=== PATIENT | female | born 1940 | race Caucasian/White ===

== ENCOUNTER 2016-10-24 16:39 | Inpatient (IN) | payer MEDICARE, BC ==
[~2016-10-24] VITALS: Ht 170.2 cm; Wt 88.5 kg
[2016-10-24 20:25] LABS: BASO # 0.1 x10^3/uL (0.0-0.2); BASO % 0 % (0-3); EOS % 2 % (0-3); HEMATOCRIT 40.1 % (36.0-47.0); HEMOGLOBIN 13.6 g/dL (12.0-15.5); LYMPH # 1.4 x10^3/uL (1.0-4.8); LYMPH % 8 % (24-48); MEAN CORPUSCULAR HEMOGLOBIN 30 pg (25-35); MEAN CORPUSCULAR HGB CONC 34 g/dL (31-37); MEAN CORPUSCULAR VOLUME 88 fL (79-100); MONO % 5 % (0-9); NEUT % 84 % (31-73); PLATELET COUNT 246 x10^3/uL (140-400); RED BLOOD COUNT 4.56 x10^6/uL (3.50-5.40); RED CELL DISTRIBUTION WIDTH 14.5 % (11.5-14.5); WHITE BLOOD COUNT 17.8 x10^3/uL (4.0-11.0)
[2016-10-24] MEDS ORDERED: ONDANSETRON PF 4 MG/2 ML VIAL. IV ONE (20:30)
[2016-10-24] MEDS: MORPHINE SULFATE 4 MG/ML DISP.SYRIN. IV PRN (20:30)
[2016-10-24 20:40] LABS: CALCIUM 9.4 mg/dL (8.5-10.1); CREATININE 0.5 mg/dL (0.6-1.0); GFR 120.3
[2016-10-24 20:43] LABS: POTASSIUM 2.8 mmol/L (3.5-5.1)
--- NOTE | 2016-10-24 20:43 | PHYS DOC ---
Past Medical History Past Medical History: GERD, Hypertension, Hypothyroid, Other Additional Past Medical Histor: INTERSTITIAL PULMONARY FIBROSIS,SLEEP APNEA Past Surgical History: Coronary Bypass Surgery, Knee Replacement, Other Additional Past Surgical Histo: R MASTECTOMY,TOE,CATARACTS Alcohol Use: None Drug Use: None Adult General Chief Complaint Chief Complaint: CONSTIPATION HPI HPI We 6-year-old female with a history of pulmonary fibrosis now presents the emergency department complaining of severe constipation. Patient feels rectal pressure and has not moved a normal bowel movement in days. She has passed some liquid stool but she thinks she may have an impaction. Patient has a prior history of rectal prolapse is concerned that could be an issue as well. Discussed some mild abdominal bloating but no pain or tenderness. No fevers chills sweats or shaking chills. No other complaints Review of Systems Review of Systems Constitutional: Denies fever or chills [] Eyes: Denies change in visual acuity, redness, or eye pain [] HENT: Denies nasal congestion or sore throat [] Respiratory: Denies cough or shortness of breath [] Cardiovascular: No additional information not addressed in HPI [] GI: Denies abdominal pain, nausea, vomiting, bloody stools or diarrhea [] : Denies dysuria or hematuria [] Musculoskeletal: Denies back pain or joint pain [] Integument: Denies rash or skin lesions [] Neurologic: Denies headache, focal weakness or sensory changes [] Endocrine: Denies polyuria or polydipsia [] Allergies Allergies Allergies Coded Allergies Type Severity Reaction Last Updated Verified No Known Drug Allergies 10/24/16 No Physical Exam Physical Exam Well-appearing female perfectly groomed no acute distress. Nontender abdomen and pelvis with no mass or megaly. Normal-appearing anus with no bleeding. Nurse present for rectal exam. Very large fecal impaction of gummy brown stool. Light brown stool no gross blood. Constitutional: Well developed, well nourished, no acute distress, non-toxic appearance. [] HENT: Normocephalic, atraumatic, bilateral external ears normal, oropharynx moist, no oral exudates, nose normal. [] Eyes: PERRLA, EOMI, conjunctiva normal, no discharge. [] Neck: Normal range of motion, no tenderness, supple, no stridor. [] Cardiovascular:Heart rate regular rhythm, no murmur [] Lungs & Thorax: Bilateral breath sounds clear to auscultation [] Abdomen: Bowel sounds normal, soft, no tenderness, no masses, no pulsatile masses. [] Skin: Warm, dry, no erythema, no rash. [] Back: No tenderness, no CVA tenderness. [] Extremities: No tenderness, no cyanosis, no clubbing, ROM intact, no edema. [] Neurologic: Alert and oriented X 3, normal motor function, normal sensory function, no focal deficits noted. [] Psychologic: Affect normal, judgement normal, mood normal. [] Current Patient Data Vital Signs Vital Signs Date Time Temp Pulse Resp B/P (MAP) Pulse Ox O2 Delivery O2 Flow Rate FiO2 10/24/16 19:04 92 146/81 (102) 97 Room Air 10/24/16 16:57 98.2 20 98.2 EKG EKG [] Radiology/Procedures Radiology/Procedures [] Course & Med Decision Making Course & Med Decision Making Pertinent Labs and Imaging studies reviewed. (See chart for details) Signs and symptoms consistent with fecal impaction confirmed by rectal exam with large accumulation of single stool mass. No evidence of rectal bleeding and benign abdomen. No vomiting. Case discussed with patient's primary care doctor Dr. Pedraza is aware of history and findings and agrees with inpatient admission her GI consultation further treatment as needed. Patient hemodynamically stable for admission Dragon Disclaimer Dragon Disclaimer This electronic medical record was generated, in whole or in part, using a voice recognition dictation system. Departure Departure Impression: Primary Impression: Abdominal pain Additional Impression: Fecal impaction Disposition: ADMITTED INPATIENT Admitting Physician: Oscar Ch Condition: STABLE Referrals: OSCAR CH MD (PCP) Problem Qualifiers VERO HESS MD Oct 24, 2016 20:43
[2016-10-24 20:50] VITALS: BP 132/89
[2016-10-24] MEDS ORDERED: TELM40TA PO (21:15)
[2016-10-24] MEDS ORDERED: OMEP20CA9 PO (21:15)
[2016-10-24] MEDS ORDERED: LEVO175T5 PO (21:20)
[2016-10-24] MEDS ORDERED: ASPI-630 PO (21:20)
[2016-10-24] MEDS ORDERED: MULT-658 PO (21:20)
[2016-10-24] MEDS ORDERED: CHLO25TA PO (21:20)
[2016-10-24] MEDS ORDERED: NINT150C PO ×2 (21:20→21:29)
[2016-10-24] MEDS ORDERED: CALC-77 PO (21:27)
[2016-10-24] MEDS ORDERED: SODI15DR5 OP (21:27)
[2016-10-24] MEDS ORDERED: ATOR40TA PO (21:27)
[2016-10-24] MEDS ORDERED: METO-239 PO (21:27)
[2016-10-24] MEDS ORDERED: NITR0.4T22 SL (21:29)
[2016-10-24] MEDS ORDERED: POTASSIUM CHLORIDE 20 MEQ TABLET.ER. PO ONE (21:30)
[2016-10-24] MEDS ORDERED: NITROGLYCERIN SUBLINGUAL 0.4 MG BOTTLE OF 25. SL PRN (21:30)
[2016-10-24] MEDS: IV 1/2 NORMAL SALINE 1,000 ML IV SCH (21:48)
[2016-10-24] MEDS: ATORVASTATIN CALCIUM 40 MG TABLET. PO SCH (22:06)
[2016-10-24] MEDS: METOPROLOL SUCC 24HR ER 25 MG TAB.ER.24H. PO SCH (22:06)
[2016-10-24 23:00] VITALS: BP 112/69
[2016-10-24] MEDS ORDERED: INFLUENZA VAX SCREEN BY RX. MC PRN (23:15)
[2016-10-25] MEDS: MORPHINE SULFATE 4 MG/ML DISP.SYRIN. IV PRN ×3 (01:47→14:20)
[2016-10-25 04:39] LABS: CALCIUM 8.8 mg/dL (8.5-10.1); CREATININE 0.5 mg/dL (0.6-1.0); GFR 120.3; POTASSIUM 3.3 mmol/L (3.5-5.1)
[2016-10-25] MEDS: LEVOTHYROXINE 175 MCG TABLET PO SCH ×2 (06:09→09:00)
[2016-10-25 07:00] VITALS: BP 92/60
--- NOTE | 2016-10-25 08:56 | PDOC ---
GENERAL General: vss and afebrile. K+ up to 3.3 with replacement. has to lay on side with ongoing rectal pain from impaction. some diarrhea since admit. await GI direction on impaction and continue K+ replacement. Problems: VITAL SIGNS Vital Signs: Vital Signs Date Time Temp Pulse Resp B/P (MAP) Pulse Ox O2 Delivery O2 Flow Rate FiO2 10/25/16 07:00 98.4 62 20 92/60 (71) 96 Room Air 98.4 10/25/16 02:17 2.0 ALLERGIES Allergies: Allergies Coded Allergies Type Severity Reaction Last Updated Verified No Known Drug Allergies 10/24/16 No MEDS Medications: Current Medications Medications (Trade) Dose Ordered Sig/Deepa Start Time Stop Time Status Last Admin Dose Admin Aspirin (Children'S Aspirin) 81 mg DAILY 10/25/16 09:00 Atorvastatin Calcium (Lipitor) 40 mg QHS 10/24/16 22:00 10/24/16 22:06 40 MG Bisacodyl (Dulcolax Supp) 10 mg 1X ONCE 10/25/16 09:00 10/25/16 09:01 Calcium/Vitamin D (Oscal D 500mg/ 200uts) 1 tab DAILY 10/25/16 09:00 Chlorthalidone (Thalitone) 25 mg DAILY 10/25/16 09:00 Influenza Virus Vaccine Quadrival (Fluarix Quad [id number] Syringe) 0.5 ml ONCE ONCE 10/25/16 09:00 10/25/16 09:01 Info (Do NOT chart on this placeholder) 1 each PRN 1X PRN 10/24/16 23:15 UNV Levothyroxine Sodium (Synthroid) 175 mcg DAILY 10/25/16 07:00 10/25/16 06:09 175 MCG Losartan Potassium (Cozaar) 50 mg DAILY 10/25/16 09:00 Metoprolol Succinate (Toprol Xl) 25 mg HS 10/24/16 22:00 10/24/16 22:06 25 MG Morphine Sulfate 2 mg PRN Q2HR PRN 10/24/16 19:30 10/25/16 19:29 10/25/16 01:47 2 MG Multivitamins (Thera M Plus) 1 tab DAILY 10/25/16 09:00 Nitroglycerin (Nitrostat) 0.4 mg PRN Q5MIN PRN 10/24/16 21:30 Non-Formulary Medication 150 mg HS 10/25/16 21:00 10/25/16 21:00 DC Ondansetron HCl (Zofran) 4 mg 1X ONCE 10/24/16 20:30 10/24/16 20:31 DC 10/24/16 20:29 4 MG Pantoprazole Sodium (Protonix) 40 mg DAILYAC 10/25/16 07:30 Potassium Chloride (Klor-Con) 40 meq 1X ONCE 10/24/16 21:30 10/24/16 21:31 DC 10/24/16 21:42 40 MEQ Sodium Chloride (Ronald-5) 1 drop DAILY 10/25/16 09:00 LAB Lab: Laboratory Tests Test 10/24/16 20:00 10/25/16 04:06 White Blood Count 17.8 x10^3/uL (4.0-11.0) Red Blood Count 4.56 x10^6/uL (3.50-5.40) Hemoglobin 13.6 g/dL (12.0-15.5) Hematocrit 40.1 % (36.0-47.0) Mean Corpuscular Volume 88 fL (79-100) Mean Corpuscular Hemoglobin 30 pg (25-35) Mean Corpuscular Hemoglobin Concent 34 g/dL (31-37) Red Cell Distribution Width 14.5 % (11.5-14.5) Platelet Count 246 x10^3/uL (140-400) Neutrophils (%) (Auto) 84 % (31-73) Lymphocytes (%) (Auto) 8 % (24-48) Monocytes (%) (Auto) 5 % (0-9) Eosinophils (%) (Auto) 2 % (0-3) Basophils (%) (Auto) 0 % (0-3) Neutrophils # (Auto) 15.0 x10^3uL (1.8-7.7) Lymphocytes # (Auto) 1.4 x10^3/uL (1.0-4.8) Monocytes # (Auto) 0.9 x10^3/uL (0.0-1.1) Eosinophils # (Auto) 0.4 x10^3/uL (0.0-0.7) Basophils # (Auto) 0.1 x10^3/uL (0.0-0.2) Sodium Level 135 mmol/L (136-145) 134 mmol/L (136-145) Potassium Level 2.8 mmol/L (3.5-5.1) 3.3 mmol/L (3.5-5.1) Chloride Level 98 mmol/L (98-107) 97 mmol/L (98-107) Carbon Dioxide Level 28 mmol/L (21-32) 28 mmol/L (21-32) Anion Gap 9 (6-14) 9 (6-14) Blood Urea Nitrogen 9 mg/dL (7-20) 9 mg/dL (7-20) Creatinine 0.5 mg/dL (0.6-1.0) 0.5 mg/dL (0.6-1.0) Estimated GFR (Cockcroft-Gault) 120.3 120.3 Glucose Level 96 mg/dL (70-99) 108 mg/dL (70-99) Calcium Level 9.4 mg/dL (8.5-10.1) 8.8 mg/dL (8.5-10.1) OSCAR CH MD Oct 25, 2016 08:56
[2016-10-25] MEDS ORDERED: FLU VACC QS2017-18 (36MOS+)/PF 0.5 ML SYRINGE. VAX IM ONE (09:00)
[2016-10-25] MEDS ORDERED: BISACODYL 10 MG SUPP.RECT. PR ONE (09:00)
--- NOTE | 2016-10-25 09:04 | PDOC2 ---
GI CONSULT Reason For Consult: Severe rectal impaction, rectal pain HPI: HPI: 76 y/o female admitted through ER. H/o pulmonary fibrosis, recently started Ofev w/ adverse reaction of diarrhea. For this has been taking Imodium. Sudden onset of rectal pain and urge to stool yesterday, describes passing liquid stools. Tried suppository x 1 but shortly after decided to come to the ER. Per ER documentation, rectal exam revealed large amount of "gummy" brown stool. Nursing notes indicate passage of stool the size of a ping pong ball overnight. With straining yesterday noted scant amount of light blood on toilet tissue. No abd pain. Intermittent nausea recently, presumably also related to Ofev, improved w/ Zofran PRN. No therapy or abd imaging yet, family concerned w/ this. H/o GERD controlled w / omeprazole QD. Believes had previous EGD and colonoscopy years ago, perhaps w / benign polyps. Asks if she can eat. PMH: PMH: pulmonary fibrosis, HTN, GERD, prolapse - ?bladder, hypothyroidism, BUD (uses CPAP), breast cancer s/p chemo and right mastectomy, CABG, right knee replacement, right hammer toe surgery, cataract extraction, FH: Family History: No pertinent hx Social History: Smoke: No ALCOHOL: none Drugs: None ROS: GEN: Denies fevers, chills, sweats HEENT: Denies blurred vision, sore throat CV: Denies chest pain RESP: +SOA GI: Per HPI : +urgency ENDO: Denies weight changes NEURO: Denies confusion, dizziness MSK: Denies weakness, joint pain/swelling SKIN: Denies jaundice, pruritus Vitals: Vitals: Vital Signs Date Time Temp Pulse Resp B/P (MAP) Pulse Ox O2 Delivery O2 Flow Rate FiO2 10/25/16 07:00 98.4 62 20 92/60 (71) 96 Room Air 98.4 10/25/16 02:17 2.0 Labs: Labs: Laboratory Tests Test 10/24/16 20:00 10/25/16 04:06 White Blood Count 17.8 x10^3/uL (4.0-11.0) Red Blood Count 4.56 x10^6/uL (3.50-5.40) Hemoglobin 13.6 g/dL (12.0-15.5) Hematocrit 40.1 % (36.0-47.0) Mean Corpuscular Volume 88 fL (79-100) Mean Corpuscular Hemoglobin 30 pg (25-35) Mean Corpuscular Hemoglobin Concent 34 g/dL (31-37) Red Cell Distribution Width 14.5 % (11.5-14.5) Platelet Count 246 x10^3/uL (140-400) Neutrophils (%) (Auto) 84 % (31-73) Lymphocytes (%) (Auto) 8 % (24-48) Monocytes (%) (Auto) 5 % (0-9) Eosinophils (%) (Auto) 2 % (0-3) Basophils (%) (Auto) 0 % (0-3) Neutrophils # (Auto) 15.0 x10^3uL (1.8-7.7) Lymphocytes # (Auto) 1.4 x10^3/uL (1.0-4.8) Monocytes # (Auto) 0.9 x10^3/uL (0.0-1.1) Eosinophils # (Auto) 0.4 x10^3/uL (0.0-0.7) Basophils # (Auto) 0.1 x10^3/uL (0.0-0.2) Sodium Level 135 mmol/L (136-145) 134 mmol/L (136-145) Potassium Level 2.8 mmol/L (3.5-5.1) 3.3 mmol/L (3.5-5.1) Chloride Level 98 mmol/L (98-107) 97 mmol/L (98-107) Carbon Dioxide Level 28 mmol/L (21-32) 28 mmol/L (21-32) Anion Gap 9 (6-14) 9 (6-14) Blood Urea Nitrogen 9 mg/dL (7-20) 9 mg/dL (7-20) Creatinine 0.5 mg/dL (0.6-1.0) 0.5 mg/dL (0.6-1.0) Estimated GFR (Cockcroft-Gault) 120.3 120.3 Glucose Level 96 mg/dL (70-99) 108 mg/dL (70-99) Calcium Level 9.4 mg/dL (8.5-10.1) 8.8 mg/dL (8.5-10.1) Allergies: Coded Allergies: No Known Drug Allergies (Unverified , 10/24/16) Medications: Current Medications Medications (Trade) Dose Ordered Sig/Deepa Route PRN Reason Start Time Stop Time Status Last Admin Dose Admin Morphine Sulfate 2 mg PRN Q2HR PRN IV PAIN 10/24/16 19:30 10/25/16 19:29 10/25/16 01:47 Ondansetron HCl (Zofran) 4 mg 1X ONCE IV 10/24/16 20:30 10/24/16 20:31 DC 10/24/16 20:29 Potassium Chloride (Klor-Con) 40 meq 1X ONCE PO 10/24/16 21:30 10/24/16 21:31 DC 10/24/16 21:42 Sodium Chloride 1,000 ml @ 75 mls/hr [id number] IV 10/24/16 21:15 10/24/16 21:48 Atorvastatin Calcium (Lipitor) 40 mg QHS PO 10/24/16 22:00 10/24/16 22:06 Levothyroxine Sodium (Synthroid) 175 mcg DAILY PO 10/25/16 07:00 10/25/16 06:09 Metoprolol Succinate (Toprol Xl) 25 mg HS PO 10/24/16 22:00 10/24/16 22:06 Imaging: Imaging: - PE: GEN: NAD HEENT: Atraumatic, PERRL LUNGS: decreased anteriorly, nasal cannula HEART: RRR ABD: NABS, S/ND/NT EXTREMITY: No edema SKIN: No rashes, no jaundice NEURO/PSYCH: A & O 3 RECTAL: no internal exam - spontaneous passage of liquid brown stool A/P: A/P: Change in bowel habits, rectal pain -diarrhea related to Ofev, treating w/ Imodium, now constipated -ER says large amount of gummy stool, nursing notes say passed ball of hard stool overnight, spontaneous passage of liquid stool on my exam H/o GERD -controlled w/ PPI -EGD years ago CRC screen, ?h/o polyps -colonoscopy years ago Pulmonary fibrosis -- D/w Dr. Canas - start w/ suppository and check CT A/P (contrast can actually be helpful). If ineffective, consider Miralax + Amitiza. After CT, okay to try lloyds, MICAH VICKRES Oct 25, 2016 09:04
[2016-10-25] MEDS: PANTOPRAZOLE 40 MG TABLET.DR. PO SCH (09:14)
[2016-10-25] MEDS: MULTIVITAMIN with MINERAL TABLET. PO SCH (09:14)
[2016-10-25] MEDS: ASPIRIN CHEWABLE 81 MG TABLET. PO SCH (09:15)
[2016-10-25] MEDS: CALCIUM CARB/VIT D3 500/200 TABLET. PO SCH (09:16)
[2016-10-25] MEDS: SODIUM CHLORIDE 5% OPHTH SOLUTION 15ML BOTTLE. OU SCH (09:20)
[2016-10-25] MEDS ORDERED: POTASSIUM CHLORIDE 20 MEQ TABLET.ER. PO ONE ×2 (09:30→14:45)
[2016-10-25] MEDS: CHLORTHALIDONE 25 MG TABLET. PO SCH (09:32)
[2016-10-25] MEDS: LOSARTAN POTASSIUM 50 MG TABLET. PO SCH (09:33)
[2016-10-25] MEDS ORDERED: IOHEXOL 240 MG/ML 50ML VIAL. ONE (09:43)
[2016-10-25] MEDS ORDERED: IOHEXOL 300 MG/ML 75 ML VIAL ONE ×2 (09:44→13:15)
[2016-10-25] MEDS ORDERED: IOHEXOL 240 MG/ML 50ML VIAL. PO ONE (09:45)
[2016-10-25] MEDS ORDERED: CONTRAST GIVEN MC PRN (09:45)
[2016-10-25] MEDS ORDERED: IOHEXOL 300 MG/ML 75 ML VIAL IV ONE (09:45)
[2016-10-25 11:00] VITALS: BP 100/77
[2016-10-25] MEDS: NINTEDANIB 150 MG PO SCH ×2 (11:46→20:39)
[2016-10-25] MEDS: IV 1/2 NORMAL SALINE 1,000 ML IV SCH (12:00)
--- NOTE | 2016-10-25 12:55 | RAD ---
Indication change in bowel habits. Rectal pain. Axial images through the abdomen and pelvis were obtained. Both oral and IV contrast were administered. Approximately 75 cc of Omnipaque 300 was administered intravenously. No prior CT imaging is available. There are some changes at the lung bases likely reflecting chronic scarring or fibrosis. There is, additionally, superimposed volume loss in the left lower lobe which may reflect atelectasis, scar or pneumonia. There is suggested mild bronchiectasis also at the left lung base. No significant finding is seen associated with the liver or spleen. The gallbladder is somewhat distended. There is possible cholelithiasis. The finding is not certain. The pancreas and adrenal glands appear normal. There is a calcification seen associated with the right kidney and there are bilateral renal cysts. An acute finding in the abdomen is not seen. The urinary bladder is distended. There is considerable amount of stool in the distal sigmoid colon and rectum. Fecal impaction is not excluded. Additionally there is some stranding in the soft tissues surrounding the rectosigmoid. Proctitis should be considered. Again clinical correlation advised. There are degenerative changes in the lumbar spine. IMPRESSION: While there are chronic changes at the lung bases there is superimposed focal area of volume loss in the left lower lobe which may reflect atelectasis, scar or pneumonia. Mildly distended gallbladder. Possible cholelithiasis. Bilateral renal cysts and minute right renal calculus. Distended urinary bladder. Suspect fecal impaction. Stranding is additionally noted surrounding the rectosigmoid colon. Associated proctitis is not excluded. Chronic musculoskeletal changes PQRS Compliance Statement: One or more of the following individualized dose reduction techniques were utilized for this examination: 1. Automated exposure control 2. Adjustment of the mA and/or kV according to patient size 3. Use of iterative reconstruction technique
[2016-10-25 15:00] VITALS: BP 96/60
[2016-10-25] MEDS: LUBIPROSTONE 8 MCG CAPSULE PO SCH (16:50)
[2016-10-25] MEDS: POLYETHYLENE GLYCOL 3350 17 GM PACKET. PO SCH (16:55)
[2016-10-25 19:12] VITALS: BP 107/50
[2016-10-25] MEDS: ATORVASTATIN CALCIUM 40 MG TABLET. PO SCH (20:38)
[2016-10-25] MEDS: METOPROLOL SUCC 24HR ER 25 MG TAB.ER.24H. PO SCH (21:00)
[2016-10-25] MEDS ORDERED: NINTEDANIB ESYLATE 150 MG PO SCH (21:00)
[2016-10-25 23:00] VITALS: BP 91/57
[2016-10-26 03:00] VITALS: BP 109/60
[2016-10-26] MEDS: IV 1/2 NORMAL SALINE 1,000 ML IV SCH (04:19)
[2016-10-26 05:28] LABS: BASO # 0.1 x10^3/uL (0.0-0.2); BASO % 1 % (0-3); EOS % 5 % (0-3); HEMATOCRIT 36.7 % (36.0-47.0); HEMOGLOBIN 12.7 g/dL (12.0-15.5); LYMPH % 16 % (24-48); MEAN CORPUSCULAR HEMOGLOBIN 30 pg (25-35); MEAN CORPUSCULAR HGB CONC 35 g/dL (31-37); MEAN CORPUSCULAR VOLUME 87 fL (79-100); MONO % 9 % (0-9); NEUT % 70 % (31-73); PLATELET COUNT 260 x10^3/uL (140-400); RED BLOOD COUNT 4.22 x10^6/uL (3.50-5.40); RED CELL DISTRIBUTION WIDTH 14.9 % (11.5-14.5); WHITE BLOOD COUNT 12.4 x10^3/uL (4.0-11.0)
[2016-10-26 06:03] LABS: CALCIUM 8.8 mg/dL (8.5-10.1); CREATININE 0.5 mg/dL (0.6-1.0); GFR 120.3; POTASSIUM 3.4 mmol/L (3.5-5.1)
[2016-10-26 07:00] VITALS: BP 111/63
[2016-10-26] MEDS: CHLORTHALIDONE 25 MG TABLET. PO SCH (08:30)
[2016-10-26] MEDS: ASPIRIN CHEWABLE 81 MG TABLET. PO SCH (08:30)
[2016-10-26] MEDS: CALCIUM CARB/VIT D3 500/200 TABLET. PO SCH (08:30)
[2016-10-26] MEDS: LUBIPROSTONE 8 MCG CAPSULE PO SCH (08:30)
[2016-10-26 08:31] VITALS: BP 111/63
[2016-10-26] MEDS: POLYETHYLENE GLYCOL 3350 17 GM PACKET. PO SCH (08:31)
[2016-10-26] MEDS: PANTOPRAZOLE 40 MG TABLET.DR. PO SCH (08:31)
[2016-10-26] MEDS: LEVOTHYROXINE 175 MCG TABLET PO SCH (08:31)
[2016-10-26] MEDS: LOSARTAN POTASSIUM 50 MG TABLET. PO SCH (08:31)
[2016-10-26] MEDS: MULTIVITAMIN with MINERAL TABLET. PO SCH (08:31)
[2016-10-26] MEDS: SODIUM CHLORIDE 5% OPHTH SOLUTION 15ML BOTTLE. OU SCH (08:32)
[2016-10-26] MEDS: NINTEDANIB 150 MG PO SCH (08:32)
--- NOTE | 2016-10-26 08:35 | PDOC ---
GENERAL General: vss and afebrile. awake and alert. family at bedside. good rectal evacuation yesterday and feels much better. K+ up to 3.4. chest clear, heart regular, and abdomen benign. home on usual meds plus miralax 17 gm daily. Problems: VITAL SIGNS Vital Signs: Vital Signs Date Time Temp Pulse Resp B/P (MAP) Pulse Ox O2 Delivery O2 Flow Rate FiO2 10/26/16 08:31 83 111/63 10/26/16 07:00 98.1 18 95 Room Air 98.1 10/25/16 20:00 2.0 ALLERGIES Allergies: Allergies Coded Allergies Type Severity Reaction Last Updated Verified No Known Drug Allergies 10/24/16 No MEDS Medications: Current Medications Medications (Trade) Dose Ordered Sig/Deepa Start Time Stop Time Status Last Admin Dose Admin Aspirin (Children'S Aspirin) 81 mg DAILY 10/25/16 09:00 10/26/16 08:30 81 MG Atorvastatin Calcium (Lipitor) 40 mg QHS 10/24/16 22:00 10/25/16 20:38 40 MG Bisacodyl (Dulcolax Supp) 10 mg 1X ONCE 10/25/16 09:00 10/25/16 09:01 DC 10/25/16 09:16 10 MG Calcium/Vitamin D (Oscal D 500mg/ 200uts) 1 tab DAILY 10/25/16 09:00 10/26/16 08:30 1 TAB Chlorthalidone (Thalitone) 25 mg DAILY 10/25/16 09:00 10/26/16 08:30 25 MG Influenza Virus Vaccine Quadrival (Fluarix Quad [id number] Syringe) 0.5 ml ONCE ONCE 10/25/16 09:00 10/25/16 09:01 DC Info (Do NOT chart on this entry -- for MONITORING) 1 each PRN DAILY PRN 10/25/16 09:45 10/27/16 09:44 Info (Do NOT chart on this placeholder) 1 each PRN 1X PRN 10/24/16 23:15 UNV Iohexol (Omnipaque 240 Mg/ml) 50 ml STK-MED ONCE 10/25/16 09:43 10/25/16 09:44 DC Iohexol (Omnipaque 300 Mg/ml) 75 ml STK-MED ONCE 10/25/16 13:15 10/25/16 13:16 DC Levothyroxine Sodium (Synthroid) 175 mcg DAILY 10/25/16 07:00 10/26/16 08:31 175 MCG Losartan Potassium (Cozaar) 50 mg DAILY 10/25/16 09:00 10/26/16 08:31 50 MG Lubiprostone (Amitiza) 8 mcg BIDWMEALS 10/25/16 17:00 10/26/16 08:30 8 MCG Metoprolol Succinate (Toprol Xl) 25 mg HS 10/24/16 22:00 10/24/16 22:06 25 MG Morphine Sulfate 2 mg PRN Q2HR PRN 10/24/16 19:30 10/25/16 19:29 DC 10/25/16 14:20 2 MG Multivitamins (Thera M Plus) 1 tab DAILY 10/25/16 09:00 10/26/16 08:31 1 TAB Nitroglycerin (Nitrostat) 0.4 mg PRN Q5MIN PRN 10/24/16 21:30 Non-Formulary Medication 150 mg HS 10/25/16 21:00 10/25/16 21:00 DC Ondansetron HCl (Zofran) 4 mg 1X ONCE 10/24/16 20:30 10/24/16 20:31 DC 10/24/16 20:29 4 MG Pantoprazole Sodium (Protonix) 40 mg DAILYAC 10/25/16 07:30 10/26/16 08:31 40 MG Polyethylene Glycol (miraLAX PACKET) 17 gm DAILY 10/25/16 16:00 10/25/16 16:55 17 GM Potassium Chloride (Klor-Con) 20 meq 1X ONCE 10/25/16 14:45 10/25/16 14:46 DC 10/25/16 16:55 20 MEQ Sodium Chloride (Ronald-5) 1 drop DAILY 10/25/16 09:00 10/26/16 08:32 1 DROP LAB Lab: Laboratory Tests Test 10/26/16 04:35 White Blood Count 12.4 x10^3/uL (4.0-11.0) Red Blood Count 4.22 x10^6/uL (3.50-5.40) Hemoglobin 12.7 g/dL (12.0-15.5) Hematocrit 36.7 % (36.0-47.0) Mean Corpuscular Volume 87 fL (79-100) Mean Corpuscular Hemoglobin 30 pg (25-35) Mean Corpuscular Hemoglobin Concent 35 g/dL (31-37) Red Cell Distribution Width 14.9 % (11.5-14.5) Platelet Count 260 x10^3/uL (140-400) Neutrophils (%) (Auto) 70 % (31-73) Lymphocytes (%) (Auto) 16 % (24-48) Monocytes (%) (Auto) 9 % (0-9) Eosinophils (%) (Auto) 5 % (0-3) Basophils (%) (Auto) 1 % (0-3) Neutrophils # (Auto) 8.7 x10^3uL (1.8-7.7) Lymphocytes # (Auto) 2.0 x10^3/uL (1.0-4.8) Monocytes # (Auto) 1.1 x10^3/uL (0.0-1.1) Eosinophils # (Auto) 0.6 x10^3/uL (0.0-0.7) Basophils # (Auto) 0.1 x10^3/uL (0.0-0.2) Sodium Level 137 mmol/L (136-145) Potassium Level 3.4 mmol/L (3.5-5.1) Chloride Level 99 mmol/L (98-107) Carbon Dioxide Level 31 mmol/L (21-32) Anion Gap 7 (6-14) Blood Urea Nitrogen 7 mg/dL (7-20) Creatinine 0.5 mg/dL (0.6-1.0) Estimated GFR (Cockcroft-Gault) 120.3 Glucose Level 95 mg/dL (70-99) Calcium Level 8.8 mg/dL (8.5-10.1) OSCAR CH MD Oct 26, 2016 08:35
[2016-10-26] MEDS ORDERED: POLY17PO29 PO (10:27)
--- NOTE | 2016-10-26 10:39 | PDOC ---
Subjective: Subjective: Better today - having soft stools. Tolerating diet. Feels well enough to DC. Objective: Objective: D/w family and RN. Vital Signs: Vital Signs Date Time Temp Pulse Resp B/P (MAP) Pulse Ox O2 Delivery O2 Flow Rate FiO2 10/26/16 08:31 83 111/63 10/26/16 07:00 98.1 18 95 Room Air 98.1 10/25/16 20:00 2.0 Labs: Laboratory Tests Test 10/26/16 04:35 White Blood Count 12.4 x10^3/uL Red Blood Count 4.22 x10^6/uL Hemoglobin 12.7 g/dL Hematocrit 36.7 % Mean Corpuscular Volume 87 fL Mean Corpuscular Hemoglobin 30 pg Mean Corpuscular Hemoglobin Concent 35 g/dL Red Cell Distribution Width 14.9 % Platelet Count 260 x10^3/uL Neutrophils (%) (Auto) 70 % Lymphocytes (%) (Auto) 16 % Monocytes (%) (Auto) 9 % Eosinophils (%) (Auto) 5 % Basophils (%) (Auto) 1 % Neutrophils # (Auto) 8.7 x10^3uL Lymphocytes # (Auto) 2.0 x10^3/uL Monocytes # (Auto) 1.1 x10^3/uL Eosinophils # (Auto) 0.6 x10^3/uL Basophils # (Auto) 0.1 x10^3/uL Sodium Level 137 mmol/L Potassium Level 3.4 mmol/L Chloride Level 99 mmol/L Carbon Dioxide Level 31 mmol/L Anion Gap 7 Blood Urea Nitrogen 7 mg/dL Creatinine 0.5 mg/dL Estimated GFR (Cockcroft-Gault) 120.3 Glucose Level 95 mg/dL Calcium Level 8.8 mg/dL Imaging: CT A/P w/ oral & IV contrast 10/25/16 IMPRESSION: While there are chronic changes at the lung bases there is superimposed focal area of volume loss in the left lower lobe which may reflect atelectasis, scar or pneumonia. Mildly distended gallbladder. Possible cholelithiasis. Bilateral renal cysts and minute right renal calculus. Distended urinary bladder. Suspect fecal impaction. Stranding is additionally noted surrounding the rectosigmoid colon. Associated proctitis is not excluded. Chronic musculoskeletal changes. PE: GEN: NAD LUNGS: clear HEART: RRR ABD: soft, non-tender NEURO/PSYCH: A & O 3 A/P: Fecal impaction - resolved w/ Dulcolax supp, Miralax, and Amitiza -- DC per primary. Plans to continue Miralax at home - discussed adjusting dose as needed. Follow-up for colonoscopy w/ Dr. Canas if symptoms recur/worsen. MICAH FRIAS Oct 26, 2016 10:39
[2016-10-26] MEDS ORDERED: POLYETHYLENE GLYCOL 3350 17 GM PACKET. PO SCH (11:00)
--- NOTE | 2016-10-29 04:57 | HP ---
ADMIT DATE: 10/24/2016 CHIEF COMPLAINT AND HISTORY OF PRESENT ILLNESS: This is a 76-year-old white female known to me from followup in the office. The patient did not have a bowel movement in several days and became increasingly uncomfortable, particularly in the rectal area where she felt like she had the ____. She was unable to sit, had to be out ____ because of the intense discomfort and even lying in bed had to roll out to one side because of that. She was found to have large fecal impaction and admitted for the same. PAST MEDICAL HISTORY: Remarkable for pulmonary fibrosis, hypothyroidism, obstructive sleep apnea, hypertension, GERD, coronary artery disease and breast cancer in the past. PAST SURGICAL HISTORY: She has had prior coronary bypass surgery, bilateral knee replacements, right mastectomy, cataract surgery. MEDICATIONS: Medications were brought with the patient, listed on the computer and have been addressed. ALLERGIES: She has no known drug allergies. SOCIAL HISTORY: She is , nonsmoker, nondrinker, does not use drugs, has a very supportive family. FAMILY HISTORY: Noncontributory. REVIEW OF SYSTEMS: Is as mentioned above ____ stools. Recently, she has had ____. She denies any specific shortness of breath, chest pain and any other cardiac symptoms. She has had no difficulty eating ____ in addition. PHYSICAL EXAMINATION: GENERAL: Well developed, well nourished white female who appears uncomfortable, is lying on the right side during my interview. VITAL SIGNS: Stable. She is afebrile. HEENT: Head, eyes, ears, nose, and throat are remarkable for glasses. NECK: Supple without adenopathy or thyromegaly. CHEST: Clear to auscultation and percussion. HEART: Regular rate and rhythm without S3, S4 or murmur. ABDOMEN: Soft, nontender, without hepatosplenomegaly or mass. EXTREMITIES: Without cyanosis, clubbing or edema. NEUROLOGIC: She is intact. RECTAL: Exam shows a large amount of soft brown stool. LABORATORY DATA: She does have potassium of 2.8 on admission and white count elevated at 17,800. Her potassium will be replaced. IMPRESSION: Fecal infection with pain as described above. PLAN: The patient has been admitted. GI has been consulted. The patient will be monitored, managed and treated appropriately. OSCAR CH MD DR: Gaudencio JOB#: [id number] / [id number]
== END 2016-10-26 10:50 | disposition home or self-care (01) | DRG 389 ==
LOC: ER 16:39 → 5 SOUTH 19:25
PROVIDERS: ADMIT Family Medicine; ATTEND Family Medicine
DX: K56.41 Fecal impaction (principal); E87.1 Hypo-osmolality and hyponatremia; J84.112 Idiopathic pulmonary fibrosis; R19.7 Diarrhea, unspecified; I10 Essential (primary) hypertension; E03.9 Hypothyroidism, unspecified; G47.33 Obstructive sleep apnea (adult) (pediatric); K21.9 Gastro-esophageal reflux disease without esophagitis; M20.41 Other hammer toe(s) (acquired), right foot; N20.0 Calculus of kidney; N28.1 Cyst of kidney, acquired; Z86.010 Personal history of colon polyps; Z95.1 Presence of aortocoronary bypass graft; Z96.651 Presence of right artificial knee joint; Z90.10 Acquired absence of unspecified breast and nipple; R19.4 Change in bowel habit; Z85.3 Personal history of malignant neoplasm of breast
CPT/HCPCS: 36415; 74177; 80048; 85025; 90686; 96374; J2270; J2405; Q9967; 99285-25

== ENCOUNTER → 2016-11-11 | Outpatient (CLI) | payer MEDICARE, BC ==
[2016-10-26 08:31] VITALS: BP 111/63
[~2016-11-11] MED LIST: ASPI-630 PO; ATOR40TA PO; CALC-77 PO; CHLO25TA PO; LEVO175T5 PO; METO-239 PO; MULT-658 PO; NINT150C PO; NITR0.4T22 SL; OMEP20CA9 PO; POLY17PO29 PO; SODI15DR5 OP; TELM40TA PO
== END | disposition home or self-care (01) ==
LOC: LAB 10:44
PROVIDERS: ATTEND Internal Medicine Gastroenterology
DX: R19.7 Diarrhea, unspecified (principal)
CPT/HCPCS: 87045; 87177; 87205; 87324; 87329

== ENCOUNTER → 2016-11-15 | Outpatient (CLI) | payer MEDICARE, BC ==
[2016-10-26 08:31] VITALS: BP 111/63
--- NOTE | 2016-11-15 13:22 | RAD ---
Indication patient had fecal impaction one month ago. Pre colonoscopy image. Flat and upright imaging of the abdomen was performed. Note is made of a CT examination of the abdomen and pelvis 10/25/2016. The lung bases are clear. The abdominal gas pattern is normal. There does not appear to be a significant amount of stool in the large bowel. Extensive vascular calcification is noted.
== END | disposition home or self-care (01) ==
LOC: RAD 11:10
PROVIDERS: ATTEND Internal Medicine Gastroenterology
DX: K56.41 Fecal impaction (principal)
CPT/HCPCS: 74020

== ENCOUNTER → 2016-11-18 | Day surgery (SDC) | payer MEDICARE, BC ==
[~2016-11-18] MED LIST changes: +HYDROmorphone 2 MG/ML VIAL IV PRN; +IV RINGERS,LACTATED 1000ML 1,000 ML IV SCH; +LIDOCAINE 1% PF 2 ML VIAL. ID PRN; +LIDOCAINE 2% PF Vial for OR 5 ML VIAL. ONE; +MORPHINE SULFATE 2 MG/ML DISP.SYRIN. IV PRN; +ONDANSETRON PF 4 MG/2 ML VIAL. IV PRN; +PROCHLORPERAZINE 10 MG/2 ML VIAL. IV PRN; +PROPOFOL 40 ML IV ONE; +fentaNYL PF VIAL 100 MCG/2 ML VIAL IV PRN
[2016-11-18 11:45] VITALS: BP 123/72
--- NOTE | 2016-11-21 15:17 | PATHOLOGY ---
PATHOLOGY REPORT * * * * * * * * FINAL DIAGNOSIS: A. Colorectal biopsies, rectal polyp: - Tubular adenoma. B. Random colon biopsies: - Focal mild acute inflammation and increased eosinophils. See comment. ([facility]:isabelle; 11/21/2016) COMMENT: Sections of the rectal biopsy reveal a tubular adenoma showing no high-grade dysplasia or evidence of malignancy. Sections of the random colon biopsy reveal multiple segments of colonic mucosa containing several mucosal-associated lymphoid aggregates. There are focal areas showing neutrophils within the lamina propria and focal areas showing increased eosinophils within the lamina propria. I cannot rule out the possibilities of a focal acute self-limited colitis, eosinophilic colitis, or drug reaction. There is no evidence of a lymphocytic or collagenous colitis. There is no evidence of a chronic destructive colitis. (P:isabelle; 11/21/2016) REPORT ELECTRONICALLY SIGNED BY: Kaushik Lewis M.D. DATE/TIME: 11/21/2016 15:16 * * * * * * * * GROSS PATHOLOGY: A. Received in formalin labeled "Saba Daugherty, rectal polyp," are 3 segments of loza soft tissue measuring 0.9 x 0.7 x 0.4 cm in aggregate dimensions and ranging from 0.4 to 0.6 cm in maximum dimension. The specimen is submitted entirely in cassette A1. B. Received in formalin labeled "Saba Daugherty, random colon biopsies," are multiple (more than 10) segments of loza soft tissue measuring 2.0 x 0.5 x 0.2 cm in aggregate dimensions and ranging from 0.1 to 0.3 cm in maximum dimension. The specimen is submitted entirely in cassette B1. ([facility]; 11/18/2016) INITIAL CPT CODE(S): A; 25027 B; 83181 Professional services performed by [facility] at [facility] [address] [place] [address] Technical services performed by [facility] at [address] [place] [address], [address], [place] [address]. SPECIMEN(S) RECEIVED: A.Rectal polyp B.Random colon biopsies CLINICAL HISTORY: Diarrhea; polyp PATIENT: SABA DAUGHERTY /AGE: 8 1940 (Age: 76) PATIENT #: [id number] ALT CASE #: SPECIMEN COLLECTION DATE: 11/18/2016 SPECIMEN RECEIVED DATE: 11/18/2016 [facility] - [address] [address] - PHONE: [phone] * * * END OF REPORT * * *
== END | disposition home or self-care (01) ==
LOC: ENDOS 10:00
PROVIDERS: ATTEND Internal Medicine Gastroenterology
DX: D12.8 Benign neoplasm of rectum (principal); K64.0 First degree hemorrhoids; E78.00 Pure hypercholesterolemia, unspecified; I10 Essential (primary) hypertension; K21.9 Gastro-esophageal reflux disease without esophagitis; E03.9 Hypothyroidism, unspecified; Z87.39 Personal history of other diseases of the musculoskeletal system and connective tissue; Z86.39 Personal history of other endocrine, nutritional and metabolic disease; Z98.890 Other specified postprocedural states
CPT/HCPCS: 45380; 45385; J2704; 88305; J2001

== ENCOUNTER 2016-12-24 22:12 | Inpatient (IN) | payer MEDICARE, BC ==
[~2016-12-24] VITALS: Ht 170.2 cm; Wt 83.2 kg
[~2016-12-24 22:12] MED LIST changes: -HYDROmorphone 2 MG/ML VIAL IV PRN; -IV RINGERS,LACTATED 1000ML 1,000 ML IV SCH; -LIDOCAINE 1% PF 2 ML VIAL. ID PRN; -LIDOCAINE 2% PF Vial for OR 5 ML VIAL. ONE; -MORPHINE SULFATE 2 MG/ML DISP.SYRIN. IV PRN; -ONDANSETRON PF 4 MG/2 ML VIAL. IV PRN; -PROCHLORPERAZINE 10 MG/2 ML VIAL. IV PRN; -PROPOFOL 40 ML IV ONE; -fentaNYL PF VIAL 100 MCG/2 ML VIAL IV PRN
--- NOTE | 2016-12-24 22:33 | PHYS DOC ---
Past Medical History Past Medical History: GERD, Hypertension, Hypothyroid, Other Additional Past Medical Histor: INTERSTITIAL PULMONARY FIBROSIS,SLEEP APNEA Past Surgical History: Coronary Bypass Surgery, Knee Replacement, Other Additional Past Surgical Histo: R MASTECTOMY,TOE,CATARACTS Alcohol Use: None Drug Use: None Adult General Chief Complaint Chief Complaint: SHORTNESS OF BREATH HPI HPI Patient is a 76 year old F who presents with increased shortness of breath. Patient states she woke up this morning with a productive cough and shortness of breath and has a day progressed she got more short of breath. She talked with family and the phone tonight around 9:15pm and she can barely talk because she was so short of breath. Patient history of a CABG and is currently being worked up for possible pulmonary fibrosis. Patient denies any fevers. Patient states she's been coughing up green phlegm throughout the day. Patient denies any chest pain. Patient has no other complaints. Review of Systems Review of Systems GEN: Denies fevers, chills, sweats HEENT: Denies blurred vision, sore throat CV: Denies chest pain RESP: Shortness of air GI: Denies n/v/d NEURO: Denies confusion, dizziness MSK: Denies weakness, joint pain/swelling All other systems were reviewed and found to be within normal limits, except as documented in this note. Current Medications Current Medications Current Medications Medications (Trade) Dose Ordered Sig/Deepa Start Time Stop Time Status Last Admin Dose Admin Azithromycin 250 ml @ 250 mls/hr 1X ONCE 12/24/16 23:45 12/25/16 00:44 UNV Ceftriaxone Sodium 50 ml @ 100 mls/hr 1X ONCE 12/24/16 23:45 12/25/16 00:14 UNV Allergies Allergies Allergies Coded Allergies Type Severity Reaction Last Updated Verified No Known Drug Allergies 11/18/16 No Physical Exam Physical Exam GEN.: No apparent distress. Alert and oriented. HEENT: Head is normocephalic, atraumatic NECK: Supple. LUNGS: CTAB. HEART: RRR, S1, S2 present. Peripheral pulses intact ABDOMEN: Soft, nontender. Positive bowel sounds. EXTREMITIES: Without any cyanosis. NEUROLOGIC: Normal speech, normal tone PSYCHIATRIC: Normal affect, normal mood. SKIN: No ulcerations Current Patient Data Vital Signs Vital Signs Date Time Temp Pulse Resp B/P (MAP) Pulse Ox O2 Delivery O2 Flow Rate FiO2 12/24/16 22:33 98.0 94 28 174/116 (135) 94 Room Air 98.0 Lab Values Laboratory Tests Test 12/24/16 22:38 12/24/16 22:50 White Blood Count 14.7 x10^3/uL (4.0-11.0) H Red Blood Count 4.29 x10^6/uL (3.50-5.40) Hemoglobin 12.8 g/dL (12.0-15.5) Hematocrit 38.8 % (36.0-47.0) Mean Corpuscular Volume 91 fL (79-100) Mean Corpuscular Hemoglobin 30 pg (25-35) Mean Corpuscular Hemoglobin Concent 33 g/dL (31-37) Red Cell Distribution Width 13.6 % (11.5-14.5) Platelet Count 241 x10^3/uL (140-400) Neutrophils (%) (Auto) 78 % (31-73) H Lymphocytes (%) (Auto) 12 % (24-48) L Monocytes (%) (Auto) 7 % (0-9) Eosinophils (%) (Auto) 2 % (0-3) Basophils (%) (Auto) 1 % (0-3) Neutrophils # (Auto) 11.5 x10^3uL (1.8-7.7) H Lymphocytes # (Auto) 1.7 x10^3/uL (1.0-4.8) Monocytes # (Auto) 1.1 x10^3/uL (0.0-1.1) Eosinophils # (Auto) 0.3 x10^3/uL (0.0-0.7) Basophils # (Auto) 0.1 x10^3/uL (0.0-0.2) Sodium Level 139 mmol/L (136-145) Potassium Level 2.9 mmol/L (3.5-5.1) *L Chloride Level 101 mmol/L (98-107) Carbon Dioxide Level 28 mmol/L (21-32) Anion Gap 10 (6-14) Blood Urea Nitrogen 19 mg/dL (7-20) Creatinine 0.7 mg/dL (0.6-1.0) Estimated GFR (Cockcroft-Gault) 81.6 BUN/Creatinine Ratio 27 (6-20) H Glucose Level 113 mg/dL (70-99) H Lactic Acid Level 1.4 mmol/L (0.4-2.0) Calcium Level 9.3 mg/dL (8.5-10.1) Total Bilirubin 0.5 mg/dL (0.2-1.0) Aspartate Amino Transferase (AST) 21 U/L (15-37) Alanine Aminotransferase (ALT) 31 U/L (14-59) Alkaline Phosphatase 90 U/L (46-116) Troponin I Quantitative < 0.017 ng/mL (0.000-0.055) Total Protein 7.5 g/dL (6.4-8.2) Albumin 3.8 g/dL (3.4-5.0) Albumin/Globulin Ratio 1.0 (1.0-1.7) Lipase 148 U/L (73-393) Urine Collection Type Unknown Urine Color Yellow Urine Clarity Clear Urine pH 6.5 Urine Specific [place] 1.020 Urine Protein Negative mg/dL (NEG-TRACE) Urine Glucose (UA) Negative mg/dL (NEG) Urine Ketones (Stick) Negative mg/dL (NEG) Urine Blood Moderate (NEG) Urine Nitrite Negative (NEG) Urine Bilirubin Negative (NEG) Urine Urobilinogen Dipstick 0.2 mg/dL (0.2 mg/dL) Urine Leukocyte Esterase Large (NEG) Urine RBC 3-5 /HPF (0-2) Urine WBC 11-20 /HPF (0-4) Urine Squamous Epithelial Cells Mod /LPF Urine Renal Epithelial Cells Occ /LPF Urine Bacteria Few /HPF (0-FEW) Urine Mucus Slight /LPF Laboratory Tests 12/24/16 22:38 Laboratory Tests 12/24/16 22:38 EKG EKG 2308: EKG shows sinus tach rate of 104 no STEMI[] Radiology/Procedures Radiology/Procedures Chest x-ray shows right middle lobe pneumonia[] Course & Med Decision Making Course & Med Decision Making Pertinent Labs and Imaging studies reviewed. (See chart for details) ED course: Patient was seen and examined emergency room workup was ordered along with a chest x-ray 2335: Rocephin and Zithromax antibiotics were ordered along with potassium replacement and patient updated on x-ray findings and plan to admit for pneumonia. Since patient still tachycardic and short of breath will obtain a CT scan to rule out a PE 2340: Discussed CC/HP/PMH with Dr. Ch and recommends admit [] MDM: After reviewing the chart, CC/HPI/PMH, physical exam, [lab results], [ radiological results], I believe the patient has a right lobar pneumonia and given the patient's age and persistent tachycardia and shortness of breath will admit the patient for further evaluation and management and start the patient IV antibiotics. We'll obtain a CT scan of the chest to rule out a PE. [] Dragon Disclaimer Dragon Disclaimer This electronic medical record was generated, in whole or in part, using a voice recognition dictation system. Departure Departure Impression: Primary Impression: Right middle lobe pneumonia Additional Impression: Hypokalemia Disposition: ADMITTED INPATIENT Admitting Physician: Oscar Ch Condition: STABLE Referrals: OSCAR CH MD (PCP) Problem Qualifiers ROSHNI SOTELO DO Dec 24, 2016 22:33
[2016-12-24 22:49] LABS: BASO # 0.1 x10^3/uL (0.0-0.2); BASO % 1 % (0-3); EOS % 2 % (0-3); HEMATOCRIT 38.8 % (36.0-47.0); HEMOGLOBIN 12.8 g/dL (12.0-15.5); LYMPH # 1.7 x10^3/uL (1.0-4.8); LYMPH % 12 % (24-48); MEAN CORPUSCULAR HEMOGLOBIN 30 pg (25-35); MEAN CORPUSCULAR HGB CONC 33 g/dL (31-37); MEAN CORPUSCULAR VOLUME 91 fL (79-100); MONO % 7 % (0-9); NEUT % 78 % (31-73); PLATELET COUNT 241 x10^3/uL (140-400); RED BLOOD COUNT 4.29 x10^6/uL (3.50-5.40); RED CELL DISTRIBUTION WIDTH 13.6 % (11.5-14.5); WHITE BLOOD COUNT 14.7 x10^3/uL (4.0-11.0)
[2016-12-24 23:04] LABS: BILIRUBIN,URINE NEGATIVE (NEG); GLUCOSE,URINE NEGATIVE (NEG); NITRITE,URINE NEGATIVE (NEG); PH,URINE 6.5; PROTEIN,URINE NEGATIVE (NEG-TRACE); UROBILINOGEN,URINE 0.2 mg/dL (0.2 mg/dL)
[2016-12-24 23:07] LABS: ALBUMIN 3.8 g/dL (3.4-5.0); CALCIUM 9.3 mg/dL (8.5-10.1); CREATININE 0.7 mg/dL (0.6-1.0); GFR 81.6; TOTAL BILIRUBIN 0.5 mg/dL (0.2-1.0); TOTAL PROTEIN 7.5 g/dL (6.4-8.2)
[2016-12-24 23:11] LABS: POTASSIUM 2.9 mmol/L (3.5-5.1)
[2016-12-24 23:17] LABS: BACTERIA,URINE FEW /HPF (0-FEW); SQUAMOUS EPITHELIAL CELL,UR MOD /LPF
[2016-12-24] MEDS ORDERED: ACETAMINOPHEN 325 MG TABLET. PO PRN (23:45)
[2016-12-24] MEDS ORDERED: fentaNYL PF VIAL 100 MCG/2 ML VIAL IV PRN (23:45)
[2016-12-24] MEDS ORDERED: IOHEXOL 300 MG/ML 100ML VIAL. IV ONE (23:45)
[2016-12-24] MEDS ORDERED: AZITHRMYCN 500MG IVPB FOR OMNI 250 ML IV ONE (23:45)
[2016-12-24] MEDS ORDERED: POTASSIUM CHLORIDE 20 MEQ TABLET.ER. PO ONE (23:45)
[2016-12-24] MEDS ORDERED: ONDANSETRON PF 4 MG/2 ML VIAL. IV PRN (23:45)
[2016-12-24] MEDS ORDERED: CONTRAST GIVEN MC PRN (23:45)
[2016-12-24 23:49] LABS: OBC FLU VALID
--- NOTE | 2016-12-25 00:04 | RAD ---
CT angiogram of the chest with contrast: Reason for examination: Shortness of breath. Evaluate for pulmonary embolus. Helical images were obtained through the chest with angiographic protocol following intravenous administration of 75 cc Omnipaque 300. 3-D MIPS reconstruction was performed in sagittal and coronal planes. Exposure: One or more of the following individualized dose reduction techniques were utilized for this examination: 1. Automated exposure control 2. Adjustment of the mA and/or kV according to patient size 3. Use of iterative reconstruction technique. The trachea and mainstem bronchi show no intraluminal lesions. No abnormality seen at the esophagus. The thoracic aorta shows no aneurysmal dilatation or dissection. The heart size is normal with no pericardial effusion. There is no evidence of pulmonary embolus. No consolidative infiltrates or pleural effusions are seen. There is some linear atelectasis at the left lung base. No abnormalities are seen at the visualized portions of the liver, spleen, gallbladder or adrenal glands. There are postoperative changes from median sternotomy. No acute bony abnormalities are seen. There are postoperative changes from previous right mastectomy and axillary node dissection. IMPRESSION: Linear atelectasis at the left lung base. No evidence of pulmonary embolus. No other acute abnormality seen in the chest. Electronically signed by: Judi Langley MD (12/25/2016 12:01 AM) [id number]
[2016-12-25 02:22] LABS: BASO # 0.1 x10^3/uL (0.0-0.2); BASO % 1 % (0-3); EOS % 2 % (0-3); HEMATOCRIT 38.1 % (36.0-47.0); HEMOGLOBIN 12.6 g/dL (12.0-15.5); LYMPH # 1.5 x10^3/uL (1.0-4.8); LYMPH % 10 % (24-48); MEAN CORPUSCULAR HEMOGLOBIN 30 pg (25-35); MEAN CORPUSCULAR HGB CONC 33 g/dL (31-37); MEAN CORPUSCULAR VOLUME 90 fL (79-100); MONO % 7 % (0-9); NEUT % 81 % (31-73); PLATELET COUNT 228 x10^3/uL (140-400); RED BLOOD COUNT 4.23 x10^6/uL (3.50-5.40); RED CELL DISTRIBUTION WIDTH 13.6 % (11.5-14.5)
[2016-12-25 02:32] LABS: CALCIUM 8.9 mg/dL (8.5-10.1); CREATININE 0.6 mg/dL (0.6-1.0); GFR 97.5; POTASSIUM 3.1 mmol/L (3.5-5.1)
[2016-12-25 03:00] VITALS: BP 129/91
[2016-12-25 07:00] VITALS: BP 107/64
--- NOTE | 2016-12-25 08:07 | RAD ---
PA AND LATERAL CHEST RADIOGRAPH Clinical Indication: SOA. Productive cough x1 day Comparison: None. Findings: Median sternotomy wires and changes of CABG. Atherosclerotic thoracic aorta. Cardiac size normal. Pulmonary vasculature is normal. Mild left lower lobe airspace disease. No pleural effusion or pneumothorax is seen. There is no acute bone abnormality. Right axillary surgical clips. IMPRESSION: Mild left lower lobe airspace disease.
--- NOTE | 2016-12-25 08:58 | EKG ---
[facility] [address] [place] [address] Test Date: 2016-12-24 Test Time: 23:08:00 Pat Name: SABA DAUGHERTY Department: Room: 8 Gender: F Security Messenger: : [phone] Requested By: ROSHNI SOTELO Order Number: [id number] Reading MD: Nakul Palencia MD Measurements Intervals [place] Rate: 104 P: 43 OK: 152 QRS: 37 QRSD: 98 T: 22 QT: 362 QTc: 483 Interpretive Statements SINUS TACHYCARDIA NON-SPECIFIC ST/T CHANGES Electronically Signed On 12-27-2016 12:26:12 [employer] by Nakul Palencia MD
[2016-12-25 11:00] VITALS: BP 119/76
[2016-12-25] MEDS ORDERED: NITROGLYCERIN SUBLINGUAL 0.4 MG BOTTLE OF 25. SL PRN (11:30)
--- NOTE | 2016-12-25 11:32 | PDOC ---
GENERAL General: see dictated H&P. Problems: VITAL SIGNS Vital Signs: Vital Signs Date Time Temp Pulse Resp B/P (MAP) Pulse Ox O2 Delivery O2 Flow Rate FiO2 12/25/16 07:00 98.1 91 18 107/64 (78) 95 Room Air 98.1 I & O I & O Intake and Output 12/25/16 07:00 Intake Total 300 ml Balance 300 ml IV Total 300 ml # Voids 1 ALLERGIES Allergies: Allergies Coded Allergies Type Severity Reaction Last Updated Verified atorvastatin Allergy Intermediate 12/25/16 Yes MEDS Medications: Current Medications Medications (Trade) Dose Ordered Sig/Deepa Start Time Stop Time Status Last Admin Dose Admin Acetaminophen (Tylenol) 650 mg PRN Q4HRS PRN 12/24/16 23:45 12/25/16 23:44 Azithromycin 250 ml @ 250 mls/hr 1X ONCE 12/24/16 23:45 12/25/16 00:44 DC 12/25/16 01:47 250 MLS/HR Ceftriaxone Sodium 50 ml @ 100 mls/hr 1X ONCE 12/24/16 23:45 12/25/16 00:14 DC 12/25/16 00:12 100 MLS/HR Fentanyl Citrate (Fentanyl 2ml Vial) 50 mcg PRN Q1HR PRN 12/24/16 23:45 12/25/16 23:44 Info (Do NOT chart on this entry -- for MONITORING) 1 each PRN DAILY PRN 12/24/16 23:45 12/26/16 23:44 Iohexol (Omnipaque 300 Mg/ml) 75 ml 1X ONCE 12/24/16 23:45 12/24/16 23:46 DC 12/24/16 23:57 75 ML Ondansetron HCl (Zofran) 4 mg PRN Q8HRS PRN 12/24/16 23:45 12/25/16 23:44 Potassium Chloride (Klor-Con) 40 meq 1X ONCE 12/24/16 23:45 12/24/16 23:46 DC 12/25/16 00:12 40 MEQ LAB Lab: Laboratory Tests Test 12/24/16 22:38 12/24/16 22:50 12/24/16 23:15 12/25/16 02:00 White Blood Count 14.7 x10^3/uL (4.0-11.0) 15.0 x10^3/uL (4.0-11.0) Red Blood Count 4.29 x10^6/uL (3.50-5.40) 4.23 x10^6/uL (3.50-5.40) Hemoglobin 12.8 g/dL (12.0-15.5) 12.6 g/dL (12.0-15.5) Hematocrit 38.8 % (36.0-47.0) 38.1 % (36.0-47.0) Mean Corpuscular Volume 91 fL (79-100) 90 fL (79-100) Mean Corpuscular Hemoglobin 30 pg (25-35) 30 pg (25-35) Mean Corpuscular Hemoglobin Concent 33 g/dL (31-37) 33 g/dL (31-37) Red Cell Distribution Width 13.6 % (11.5-14.5) 13.6 % (11.5-14.5) Platelet Count 241 x10^3/uL (140-400) 228 x10^3/uL (140-400) Neutrophils (%) (Auto) 78 % (31-73) 81 % (31-73) Lymphocytes (%) (Auto) 12 % (24-48) 10 % (24-48) Monocytes (%) (Auto) 7 % (0-9) 7 % (0-9) Eosinophils (%) (Auto) 2 % (0-3) 2 % (0-3) Basophils (%) (Auto) 1 % (0-3) 1 % (0-3) Neutrophils # (Auto) 11.5 x10^3uL (1.8-7.7) 12.1 x10^3uL (1.8-7.7) Lymphocytes # (Auto) 1.7 x10^3/uL (1.0-4.8) 1.5 x10^3/uL (1.0-4.8) Monocytes # (Auto) 1.1 x10^3/uL (0.0-1.1) 1.0 x10^3/uL (0.0-1.1) Eosinophils # (Auto) 0.3 x10^3/uL (0.0-0.7) 0.3 x10^3/uL (0.0-0.7) Basophils # (Auto) 0.1 x10^3/uL (0.0-0.2) 0.1 x10^3/uL (0.0-0.2) Sodium Level 139 mmol/L (136-145) 140 mmol/L (136-145) Potassium Level 2.9 mmol/L (3.5-5.1) 3.1 mmol/L (3.5-5.1) Chloride Level 101 mmol/L (98-107) 102 mmol/L (98-107) Carbon Dioxide Level 28 mmol/L (21-32) 26 mmol/L (21-32) Anion Gap 10 (6-14) 12 (6-14) Blood Urea Nitrogen 19 mg/dL (7-20) 17 mg/dL (7-20) Creatinine 0.7 mg/dL (0.6-1.0) 0.6 mg/dL (0.6-1.0) Estimated GFR (Cockcroft-Gault) 81.6 97.5 BUN/Creatinine Ratio 27 (6-20) Glucose Level 113 mg/dL (70-99) 105 mg/dL (70-99) Lactic Acid Level 1.4 mmol/L (0.4-2.0) 1.3 mmol/L (0.4-2.0) Calcium Level 9.3 mg/dL (8.5-10.1) 8.9 mg/dL (8.5-10.1) Total Bilirubin 0.5 mg/dL (0.2-1.0) Aspartate Amino Transf (AST/SGOT) 21 U/L (15-37) Alanine Aminotransferase (ALT/SGPT) 31 U/L (14-59) Alkaline Phosphatase 90 U/L (46-116) Troponin I Quantitative < 0.017 ng/mL (0.000-0.055) Total Protein 7.5 g/dL (6.4-8.2) Albumin 3.8 g/dL (3.4-5.0) Albumin/Globulin Ratio 1.0 (1.0-1.7) Lipase 148 U/L (73-393) Urine Collection Type Unknown Urine Color Yellow Urine Clarity Clear Urine pH 6.5 Urine Specific Heath 1.020 Urine Protein Negative mg/dL (NEG-TRACE) Urine Glucose (UA) Negative mg/dL (NEG) Urine Ketones (Stick) Negative mg/dL (NEG) Urine Blood Moderate (NEG) Urine Nitrite Negative (NEG) Urine Bilirubin Negative (NEG) Urine Urobilinogen Dipstick 0.2 mg/dL (0.2 mg/dL) Urine Leukocyte Esterase Large (NEG) Urine RBC 3-5 /HPF (0-2) Urine WBC 11-20 /HPF (0-4) Urine Squamous Epithelial Cells Mod /LPF Urine Renal Epithelial Cells Occ /LPF Urine Bacteria Few /HPF (0-FEW) Urine Mucus Slight /LPF Influenza Type A Antigen Negative (NEGATIVE) Influenza Type B Antigen Negative (NEGATIVE) OSCAR CH MD Dec 25, 2016 11:32
--- NOTE | 2016-12-25 11:51 | HP ---
ADMIT DATE: 12/24/2016 CHIEF COMPLAINT AND HISTORY OF PRESENT ILLNESS: This 76-year-old white female is well known to me in followup in the office. The patient started on Monday with a sore throat and a cough. It got progressively worse through the weekend. She had gotten up on the morning of admission and had started to get some shortness of breath that progressed as the day got worse. She eventually got where she was barely able to talk because of the shortness of breath and was transferred by ambulance to the Emergency Room where she was admitted with what was felt to be a left lower lobe pneumonia as well as a probable urinary tract infection. She did have a leukocytosis approximately 15,000 on admission. PAST MEDICAL HISTORY: Remarkable for breast cancer, gastroesophageal reflux disease, hypertension, hypothyroidism, pulmonary fibrosis, obstructive sleep apnea. PAST SURGICAL HISTORY: Remarkable for coronary artery bypass, knee replacement, right mastectomy. She has had prior toe surgery as well as cataracts. MEDICATIONS: Brought with the patient, listed on the computer and have been addressed. ALLERGIES: SHE IS ALLERGIC TO LIPITOR WITH MYALGIAS. SOCIAL HISTORY: She is a , nonsmoker, nondrinker, does not use drugs. FAMILY HISTORY: Noncontributory. REVIEW OF SYSTEMS: Remarkable for that as listed above. She does admit to some green phlegm and feeling a little bit feverish at times. PHYSICAL EXAMINATION: GENERAL: She is a well-developed, well-nourished white female, in no acute distress on my examination. Her daughter and grandson are present. VITAL SIGNS: Stable. She is afebrile. HEAD, EYES, EARS, NOSE, THROAT: Unremarkable. She does wear glasses. NECK: Supple, without bruit or thyromegaly. CHEST: Reveals good breath sounds bilaterally and are essentially clear. HEART: Regular rate and rhythm without S3, S4, or murmur. ABDOMEN: Soft, nontender, without hepatosplenomegaly or mass. EXTREMITIES: Without cyanosis, clubbing, edema. NEUROLOGIC: She is intact. There is no CVA tenderness present. LABORATORY DATA: Initial laboratory again does reveal the leukocytosis with a left shift. She is also hypokalemic with potassium level of 2.9 on admission. Lactic acid level is normal. Liver function tests are within normal limits. BUN and creatinine are within normal limits. Urine shows large amount of leukocyte esterase, 11-20 red blood cells per high power field. IMPRESSION: Left lower lobe pneumonia along with urinary tract infection with leukocytosis and hypokalemia in a patient with underlying coronary artery disease. PLAN: The patient has been admitted. Antibiotics will be continued. Urine culture will be obtained. Potassium will be replaced and the patient will be monitored, managed and treated appropriately. OSCAR CH MD DR: CITLALI/sarah JOB#: [id number] / [id number]
[2016-12-25] MEDS: POTASSIUM CHLORIDE 20 MEQ TABLET.ER. PO SCH ×2 (12:18→21:08)
[2016-12-25] MEDS: PANTOPRAZOLE 40 MG TABLET.DR. PO SCH (12:19)
[2016-12-25] MEDS: LEVOTHYROXINE 175 MCG TABLET PO SCH (12:19)
[2016-12-25] MEDS: CHLORTHALIDONE 25 MG TABLET. PO SCH (12:19)
[2016-12-25] MEDS: LOSARTAN POTASSIUM 50 MG TABLET. PO SCH (12:20)
[2016-12-25] MEDS: IPRATRPIUM/ALBUTEROL 0.5/2.5MG 3 ML NEBU. NEB SCH ×3 (12:42→19:49)
[2016-12-25] MEDS: ASPIRIN CHEWABLE 81 MG TABLET. PO SCH (13:00)
[2016-12-25 15:00] VITALS: BP 111/66
[2016-12-25] MEDS: SODIUM CHLORIDE 5% OPHTH SOLUTION 15ML BOTTLE. OU SCH (15:32)
[2016-12-25 19:00] VITALS: BP 104/62
[2016-12-25] MEDS: METOPROLOL SUCC 24HR ER 25 MG TAB.ER.24H. PO SCH (21:07)
[2016-12-25] MEDS: cefTRIAXone IV Push 1 GM VIAL. IVP SCH (21:09)
[2016-12-25 23:00] VITALS: BP 90/57
[2016-12-26 03:00] VITALS: BP 116/70
[2016-12-26 04:26] LABS: BASO # 0.1 x10^3/uL (0.0-0.2); BASO % 1 % (0-3); EOS % 4 % (0-3); HEMATOCRIT 36.1 % (36.0-47.0); LYMPH # 1.8 x10^3/uL (1.0-4.8); LYMPH % 23 % (24-48); MEAN CORPUSCULAR HEMOGLOBIN 30 pg (25-35); MEAN CORPUSCULAR HGB CONC 33 g/dL (31-37); MEAN CORPUSCULAR VOLUME 91 fL (79-100); MONO % 9 % (0-9); NEUT % 63 % (31-73); PLATELET COUNT 216 x10^3/uL (140-400); RED BLOOD COUNT 3.95 x10^6/uL (3.50-5.40); WHITE BLOOD COUNT 7.9 x10^3/uL (4.0-11.0)
[2016-12-26 04:44] LABS: CALCIUM 9.1 mg/dL (8.5-10.1); CREATININE 0.6 mg/dL (0.6-1.0); GFR 97.5; POTASSIUM 3.6 mmol/L (3.5-5.1)
[2016-12-26] MEDS: LEVOTHYROXINE 175 MCG TABLET PO SCH (06:11)
[2016-12-26 07:00] VITALS: BP 122/72
[2016-12-26] MEDS: IPRATRPIUM/ALBUTEROL 0.5/2.5MG 3 ML NEBU. NEB SCH ×4 (07:48→20:03)
--- NOTE | 2016-12-26 08:45 | PDOC ---
GENERAL General: vss and afebrile. awake and alert and daughter in attendance. still coughing a lot. chest with occasional rhonchi but overall sounds better. heart regular and abdomen benign. wbc decreased to normal and K+ back up to normal this am. continue present and repeat cxr in am. urine culture negative to date. Problems: VITAL SIGNS Vital Signs: Vital Signs Date Time Temp Pulse Resp B/P (MAP) Pulse Ox O2 Delivery O2 Flow Rate FiO2 12/26/16 07:50 98 Room Air 12/26/16 03:00 98.4 86 18 116/70 (85) 98.4 I & O I & O Intake and Output 12/26/16 06:59 Intake Total 1120 ml Balance 1120 ml Intake Oral 1120 ml # Voids 2 ALLERGIES Allergies: Allergies Coded Allergies Type Severity Reaction Last Updated Verified atorvastatin Allergy Intermediate 12/25/16 Yes MEDS Medications: Current Medications Medications (Trade) Dose Ordered Sig/Deepa Start Time Stop Time Status Last Admin Dose Admin Acetaminophen (Tylenol) 650 mg PRN Q4HRS PRN 12/24/16 23:45 12/25/16 23:44 DC Albuterol/ Ipratropium (Duoneb) 3 ml RTQID 12/25/16 12:00 12/26/16 07:48 3 ML Aspirin (Children'S Aspirin) 81 mg DAILY 12/25/16 13:00 12/25/16 13:00 81 MG Azithromycin 250 ml @ 250 mls/hr 1X ONCE 12/24/16 23:45 12/25/16 00:44 DC 12/25/16 01:47 250 MLS/HR Calcium/Vitamin D (Oscal D 500mg/ 200uts) 1 tab [id number] 12/26/16 08:00 Ceftriaxone Sodium 1 gm/ Dextrose 50 ml @ 100 mls/hr Q24H 12/25/16 11:30 UNV Ceftriaxone Sodium (Rocephin) 1 gm Q24H 12/25/16 21:00 12/25/16 21:09 1 GM Chlorthalidone (Thalitone) 25 mg DAILY 12/25/16 13:00 12/25/16 12:19 25 MG Fentanyl Citrate (Fentanyl 2ml Vial) 50 mcg PRN Q1HR PRN 12/24/16 23:45 12/25/16 23:44 DC Info (Do NOT chart on this entry -- for MONITORING) 1 each PRN DAILY PRN 12/24/16 23:45 12/26/16 23:44 Iohexol (Omnipaque 300 Mg/ml) 75 ml 1X ONCE 12/24/16 23:45 12/24/16 23:46 DC 12/24/16 23:57 75 ML Levothyroxine Sodium (Synthroid) 175 mcg DAILY07 12/25/16 13:00 12/26/16 06:11 175 MCG Losartan Potassium (Cozaar) 50 mg DAILY 12/25/16 13:00 12/25/16 12:20 50 MG Metoprolol Succinate (Toprol Xl) 25 mg HS 12/25/16 21:00 12/25/16 21:07 25 MG Multivitamins (Thera M Plus) 1 tab DAILY 12/26/16 09:00 Nitroglycerin (Nitrostat) 0.4 mg PRN Q5MIN PRN 12/25/16 11:30 Ondansetron HCl (Zofran) 4 mg PRN Q8HRS PRN 12/24/16 23:45 12/25/16 23:44 DC Pantoprazole Sodium (Protonix) 40 mg DAILYAC 12/25/16 13:00 12/25/16 12:19 40 MG Potassium Chloride (Klor-Con) 40 meq BID 12/25/16 12:00 12/25/16 21:08 40 MEQ Sodium Chloride (Ronald-5) 2 drop DAILY 12/25/16 13:00 12/25/16 15:32 2 DROP LAB Lab: Laboratory Tests Test 12/26/16 03:30 White Blood Count 7.9 x10^3/uL (4.0-11.0) Red Blood Count 3.95 x10^6/uL (3.50-5.40) Hemoglobin 12.0 g/dL (12.0-15.5) Hematocrit 36.1 % (36.0-47.0) Mean Corpuscular Volume 91 fL (79-100) Mean Corpuscular Hemoglobin 30 pg (25-35) Mean Corpuscular Hemoglobin Concent 33 g/dL (31-37) Red Cell Distribution Width 14.0 % (11.5-14.5) Platelet Count 216 x10^3/uL (140-400) Neutrophils (%) (Auto) 63 % (31-73) Lymphocytes (%) (Auto) 23 % (24-48) Monocytes (%) (Auto) 9 % (0-9) Eosinophils (%) (Auto) 4 % (0-3) Basophils (%) (Auto) 1 % (0-3) Neutrophils # (Auto) 5.0 x10^3uL (1.8-7.7) Lymphocytes # (Auto) 1.8 x10^3/uL (1.0-4.8) Monocytes # (Auto) 0.7 x10^3/uL (0.0-1.1) Eosinophils # (Auto) 0.3 x10^3/uL (0.0-0.7) Basophils # (Auto) 0.1 x10^3/uL (0.0-0.2) Sodium Level 140 mmol/L (136-145) Potassium Level 3.6 mmol/L (3.5-5.1) Chloride Level 104 mmol/L (98-107) Carbon Dioxide Level 28 mmol/L (21-32) Anion Gap 8 (6-14) Blood Urea Nitrogen 11 mg/dL (7-20) Creatinine 0.6 mg/dL (0.6-1.0) Estimated GFR (Cockcroft-Gault) 97.5 Glucose Level 91 mg/dL (70-99) Calcium Level 9.1 mg/dL (8.5-10.1) OSCAR CH MD Dec 26, 2016 08:45
[2016-12-26] MEDS: ASPIRIN CHEWABLE 81 MG TABLET. PO SCH (09:30)
[2016-12-26] MEDS: LOSARTAN POTASSIUM 50 MG TABLET. PO SCH (09:31)
[2016-12-26] MEDS: CALCIUM CARB/VIT D3 500/200 TABLET. PO SCH (09:31)
[2016-12-26] MEDS: POTASSIUM CHLORIDE 20 MEQ TABLET.ER. PO SCH ×2 (09:31→20:53)
[2016-12-26] MEDS: MULTIVITAMIN with MINERAL TABLET. PO SCH (09:31)
[2016-12-26] MEDS: CHLORTHALIDONE 25 MG TABLET. PO SCH (09:31)
[2016-12-26] MEDS: PANTOPRAZOLE 40 MG TABLET.DR. PO SCH (09:31)
[2016-12-26] MEDS: SODIUM CHLORIDE 5% OPHTH SOLUTION 15ML BOTTLE. OU SCH (09:32)
[2016-12-26 11:00] VITALS: BP 125/76
[2016-12-26 15:05] VITALS: BP 121/72
[2016-12-26] MEDS: BENZONATATE 100 MG CAPSULE. PO SCH ×2 (15:27→20:53)
[2016-12-26 19:00] VITALS: BP 112/56
[2016-12-26] MEDS: METOPROLOL SUCC 24HR ER 25 MG TAB.ER.24H. PO SCH (20:53)
[2016-12-26] MEDS: cefTRIAXone IV Push 1 GM VIAL. IVP SCH (20:54)
[2016-12-26 23:00] VITALS: BP 120/56
[2016-12-27 03:00] VITALS: BP 117/63
[2016-12-27] MEDS: BENZONATATE 100 MG CAPSULE. PO SCH ×3 (06:02→20:43)
[2016-12-27] MEDS: PANTOPRAZOLE 40 MG TABLET.DR. PO SCH (06:02)
[2016-12-27] MEDS: LEVOTHYROXINE 175 MCG TABLET PO SCH (06:02)
[2016-12-27 07:00] VITALS: BP 118/75
[2016-12-27] MEDS: IPRATRPIUM/ALBUTEROL 0.5/2.5MG 3 ML NEBU. NEB SCH ×4 (07:07→19:20)
--- NOTE | 2016-12-27 08:29 | PDOC ---
GENERAL General: vss and afebrile. daughter in attendance. awake and alert. still with very harsh cough and tessalon perles not helping much and will add some prednisone to regimen. am cxr not done yet. urine culture negative. chest with occasional wheeze, heart regular, and abdomen benign. Problems: VITAL SIGNS Vital Signs: Vital Signs Date Time Temp Pulse Resp B/P (MAP) Pulse Ox O2 Delivery O2 Flow Rate FiO2 12/27/16 07:09 97 Room Air 12/27/16 07:00 96 20 118/75 (89) 12/27/16 03:00 98.1 98.1 I & O I & O Intake and Output 12/28/16 07:00 # Voids 1 ALLERGIES Allergies: Allergies Coded Allergies Type Severity Reaction Last Updated Verified atorvastatin Allergy Intermediate 12/25/16 Yes MEDS Medications: Current Medications Medications (Trade) Dose Ordered Sig/Deepa Start Time Stop Time Status Last Admin Dose Admin Acetaminophen (Tylenol) 650 mg PRN Q4HRS PRN 12/24/16 23:45 12/25/16 23:44 DC Albuterol/ Ipratropium (Duoneb) 3 ml RTQID 12/25/16 12:00 12/27/16 07:07 3 ML Aspirin (Children'S Aspirin) 81 mg DAILY 12/25/16 13:00 12/26/16 09:30 81 MG Azithromycin 250 ml @ 250 mls/hr 1X ONCE 12/24/16 23:45 12/25/16 00:44 DC 12/25/16 01:47 250 MLS/HR Benzonatate (Tessalon Perle) 100 mg Q8HRS 12/26/16 15:30 12/27/16 06:02 100 MG Calcium/Vitamin D (Oscal D 500mg/ 200uts) 1 tab [id number] 12/26/16 08:00 12/26/16 09:31 1 TAB Ceftriaxone Sodium 1 gm/ Dextrose 50 ml @ 100 mls/hr Q24H 12/25/16 11:30 UNV Ceftriaxone Sodium (Rocephin) 1 gm Q24H 12/25/16 21:00 12/26/16 20:54 1 GM Chlorthalidone (Thalitone) 25 mg DAILY 12/25/16 13:00 12/26/16 09:31 25 MG Fentanyl Citrate (Fentanyl 2ml Vial) 50 mcg PRN Q1HR PRN 12/24/16 23:45 12/25/16 23:44 DC Info (Do NOT chart on this entry -- for MONITORING) 1 each PRN DAILY PRN 12/24/16 23:45 12/26/16 23:44 DC Iohexol (Omnipaque 300 Mg/ml) 75 ml 1X ONCE 12/24/16 23:45 12/24/16 23:46 DC 12/24/16 23:57 75 ML Levothyroxine Sodium (Synthroid) 175 mcg DAILY07 12/25/16 13:00 12/27/16 06:02 175 MCG Losartan Potassium (Cozaar) 50 mg DAILY 12/25/16 13:00 12/26/16 09:31 50 MG Metoprolol Succinate (Toprol Xl) 25 mg HS 12/25/16 21:00 12/26/16 20:53 25 MG Multivitamins (Thera M Plus) 1 tab DAILY 12/26/16 09:00 12/26/16 09:31 1 TAB Nitroglycerin (Nitrostat) 0.4 mg PRN Q5MIN PRN 12/25/16 11:30 Ondansetron HCl (Zofran) 4 mg PRN Q8HRS PRN 12/24/16 23:45 12/25/16 23:44 DC Pantoprazole Sodium (Protonix) 40 mg DAILYAC 12/25/16 13:00 12/27/16 06:02 40 MG Potassium Chloride (Klor-Con) 40 meq BID 12/25/16 12:00 12/26/16 20:53 40 MEQ Sodium Chloride (Ronald-5) 2 drop DAILY 12/25/16 13:00 12/26/16 09:32 2 DROP OSCAR CH MD Dec 27, 2016 08:29
--- NOTE | 2016-12-27 09:01 | RAD ---
EXAM: Chest 2 views. HISTORY: Pneumonia. COMPARISON: 12/24/2016. FINDINGS: Frontal and lateral views of the chest are obtained. There are changes of coronary artery bypass grafting. There are surgical clips in the right axilla and changes of right mastectomy. There are interstitial opacities in the left greater than right bases most consistent with interstitial lung disease. There are no clear superimposed infiltrates. There is no pneumothorax or pleural effusion. The heart is not enlarged. There are atherosclerotic calcifications of the aorta. IMPRESSION: 1. Interstitial lung disease on the left greater than right. No clear superimposed infiltrate.
[2016-12-27] MEDS: CALCIUM CARB/VIT D3 500/200 TABLET. PO SCH (09:07)
[2016-12-27] MEDS: MULTIVITAMIN with MINERAL TABLET. PO SCH (09:07)
[2016-12-27] MEDS: CHLORTHALIDONE 25 MG TABLET. PO SCH (09:07)
[2016-12-27] MEDS: predniSONE 20 MG TABLET PO SCH (09:07)
[2016-12-27] MEDS: POTASSIUM CHLORIDE 20 MEQ TABLET.ER. PO SCH ×2 (09:07→20:44)
[2016-12-27] MEDS: ASPIRIN CHEWABLE 81 MG TABLET. PO SCH (09:07)
[2016-12-27] MEDS: LOSARTAN POTASSIUM 50 MG TABLET. PO SCH (09:08)
[2016-12-27] MEDS: SODIUM CHLORIDE 5% OPHTH SOLUTION 15ML BOTTLE. OU SCH (09:09)
[2016-12-27 11:00] VITALS: BP 116/70
[2016-12-27 15:00] VITALS: BP 107/69
[2016-12-27 19:00] VITALS: BP 142/65
[2016-12-27] MEDS: cefTRIAXone IV Push 1 GM VIAL. IVP SCH (20:44)
[2016-12-27] MEDS: METOPROLOL SUCC 24HR ER 25 MG TAB.ER.24H. PO SCH (20:44)
[2016-12-27 23:00] VITALS: BP 139/80
[2016-12-28 03:00] VITALS: BP 135/78
[2016-12-28] MEDS: LEVOTHYROXINE 175 MCG TABLET PO SCH (05:12)
[2016-12-28] MEDS: PANTOPRAZOLE 40 MG TABLET.DR. PO SCH (05:12)
[2016-12-28] MEDS: BENZONATATE 100 MG CAPSULE. PO SCH ×3 (05:12→21:07)
[2016-12-28 07:35] VITALS: BP 184/97
[2016-12-28] MEDS: ASPIRIN CHEWABLE 81 MG TABLET. PO SCH (08:15)
[2016-12-28] MEDS: MULTIVITAMIN with MINERAL TABLET. PO SCH (08:15)
[2016-12-28] MEDS: CALCIUM CARB/VIT D3 500/200 TABLET. PO SCH (08:16)
[2016-12-28] MEDS: LOSARTAN POTASSIUM 50 MG TABLET. PO SCH (08:16)
[2016-12-28] MEDS: POTASSIUM CHLORIDE 20 MEQ TABLET.ER. PO SCH ×2 (08:16→21:06)
[2016-12-28] MEDS: predniSONE 20 MG TABLET PO SCH (08:16)
[2016-12-28] MEDS: CHLORTHALIDONE 25 MG TABLET. PO SCH (08:16)
[2016-12-28] MEDS: SODIUM CHLORIDE 5% OPHTH SOLUTION 15ML BOTTLE. OU SCH (08:21)
[2016-12-28] MEDS: IPRATRPIUM/ALBUTEROL 0.5/2.5MG 3 ML NEBU. NEB SCH ×4 (08:22→19:13)
--- NOTE | 2016-12-28 08:56 | PDOC ---
GENERAL General: vss and afebrile. still with coughing spells that scare her. chest better bs and cxr stable. will ask for pulmonary input. wbc has decreased to normal with antibiotics and overall better. Problems: VITAL SIGNS Vital Signs: Vital Signs Date Time Temp Pulse Resp B/P (MAP) Pulse Ox O2 Delivery O2 Flow Rate FiO2 12/28/16 08:27 96 Room Air 12/28/16 08:16 108 184/97 12/28/16 03:00 97.7 18 97.7 I & O I & O Intake and Output 12/28/16 07:00 Intake Total 2710 ml Output Total 1550 ml Balance 1160 ml Intake Oral 2710 ml Output Urine Total 1550 ml # Voids 2 ALLERGIES Allergies: Allergies Coded Allergies Type Severity Reaction Last Updated Verified atorvastatin Allergy Intermediate 12/25/16 Yes MEDS Medications: Current Medications Medications (Trade) Dose Ordered Sig/Deepa Start Time Stop Time Status Last Admin Dose Admin Acetaminophen (Tylenol) 650 mg PRN Q4HRS PRN 12/24/16 23:45 12/25/16 23:44 DC Albuterol/ Ipratropium (Duoneb) 3 ml RTQID 12/25/16 12:00 12/28/16 08:22 3 ML Aspirin (Children'S Aspirin) 81 mg DAILY 12/25/16 13:00 12/28/16 08:15 81 MG Azithromycin 250 ml @ 250 mls/hr 1X ONCE 12/24/16 23:45 12/25/16 00:44 DC 12/25/16 01:47 250 MLS/HR Benzonatate (Tessalon Perle) 100 mg Q8HRS 12/26/16 15:30 12/28/16 05:12 100 MG Calcium/Vitamin D (Oscal D 500mg/ 200uts) 1 tab [id number] 12/26/16 08:00 12/28/16 08:16 1 TAB Ceftriaxone Sodium 1 gm/ Dextrose 50 ml @ 100 mls/hr Q24H 12/25/16 11:30 UNV Ceftriaxone Sodium (Rocephin) 1 gm Q24H 12/25/16 21:00 12/27/16 20:44 1 GM Chlorthalidone (Thalitone) 25 mg DAILY 12/25/16 13:00 12/28/16 08:16 25 MG Fentanyl Citrate (Fentanyl 2ml Vial) 50 mcg PRN Q1HR PRN 12/24/16 23:45 12/25/16 23:44 DC Info (Do NOT chart on this entry -- for MONITORING) 1 each PRN DAILY PRN 12/24/16 23:45 12/26/16 23:44 DC Iohexol (Omnipaque 300 Mg/ml) 75 ml 1X ONCE 12/24/16 23:45 12/24/16 23:46 DC 12/24/16 23:57 75 ML Levothyroxine Sodium (Synthroid) 175 mcg DAILY07 12/25/16 13:00 12/28/16 05:12 175 MCG Losartan Potassium (Cozaar) 50 mg DAILY 12/25/16 13:00 12/28/16 08:16 50 MG Metoprolol Succinate (Toprol Xl) 25 mg HS 12/25/16 21:00 12/27/16 20:44 25 MG Multivitamins (Thera M Plus) 1 tab DAILY 12/26/16 09:00 12/28/16 08:15 1 TAB Nitroglycerin (Nitrostat) 0.4 mg PRN Q5MIN PRN 12/25/16 11:30 Ondansetron HCl (Zofran) 4 mg PRN Q8HRS PRN 12/24/16 23:45 12/25/16 23:44 DC Pantoprazole Sodium (Protonix) 40 mg DAILYAC 12/25/16 13:00 12/28/16 05:12 40 MG Potassium Chloride (Klor-Con) 40 meq BID 12/25/16 12:00 12/28/16 08:16 40 MEQ Prednisone (Prednisone) 40 mg DAILY 12/27/16 09:00 12/28/16 08:16 40 MG Sodium Chloride (Ronald-5) 2 drop DAILY 12/25/16 13:00 12/28/16 08:21 2 DROP OSCAR CH MD Dec 28, 2016 08:56
[2016-12-28 10:30] VITALS: BP 153/82
--- NOTE | 2016-12-28 13:26 | PDOC ---
PULMONARY PROGRESS NOTES Vitals Vital Signs Date Time Temp Pulse Resp B/P (MAP) Pulse Ox O2 Delivery O2 Flow Rate FiO2 12/28/16 10:59 Room Air 12/28/16 10:30 98.8 97 18 153/82 (105) 96 98.8 Medications Active Scripts Medications Dose Route/Sig Max Daily Dose Days Date Category NITROGLYCERIN SubLingual (Nitroglycerin) 0.4 Mg Tab.subl 0.4 Mg SL PRN Q5MIN PRN 10/24/16 Reported Metoprolol Succinate ( Xl ) (Metoprolol Succinate) 25 Mg Tab.er.24h 1 Tab PO HS 10/24/16 Reported Ronald-128 (Sodium Chloride) 15 Ml Drops 15 Ml OP DAILY 10/24/16 Reported Calcium + D3 Er Tablet (Calcium Carb & Cit/Vitamin D3) 1 Each Tablet.er 1 Each PO DAILY 10/24/16 Reported Centrum Silver Tablet (Multivits-Min/Fa/Lycopene/Lut) 1 Each Tablet 1 Each PO DAILY 10/24/16 Reported Aspirin 81 Mg Tab.chew 1 Tab PO DAILY 10/24/16 Reported Levothyroxine Sodium 175 Mcg Tablet 1 Tab PO DAILY 10/24/16 Reported Chlorthalidone 25 Mg Tablet 1 Tab PO DAILY 10/24/16 Reported Micardis (Telmisartan) 40 Mg Tablet 1 Tab PO DAILY 10/24/16 Reported Omeprazole 20 Mg Capsule. 1 Cap PO DAILY 10/24/16 Reported Impression . FULL NOTE DICTATED COUGH SEC TO RECENT INFECTION, GERD, ADULT ONSET ASTHMA WHEN D/C HOME RX FOR ALBUTEROL TAPER PRED DOXY OR ZITHROMAX AVOID CAFFEINE FOLLOW UP WITH ME IN 4 WEEKS MIS SAGE MD Dec 28, 2016 13:26
[2016-12-28 15:19] VITALS: BP 130/76
--- NOTE | 2016-12-28 17:28 | CONS ---
DATE OF CONSULTATION: 12/28/2016 ATTENDING PHYSICIAN: Dr. Gutierrez. REASON FOR CONSULTATION: The patient seen in Pulmonary consultation at the request of Dr. Gutierrez for productive cough and wheeze. HISTORY OF PRESENT ILLNESS: The patient is a 76-year-old female that was seen in the office with increasing shortness of breath and cough. She woke up the morning of admission with increasing shortness of breath. EMS was summoned. She was severely short of breath and wheezing. She was given a breathing treatment en route, she states that she felt better. She was admitted and underwent a CT angiogram for PE protocol. I reviewed the CT. There was no evidence of pulmonary embolism. There were some infiltrates in the bases. The patient has been treated for pneumonia. She continues to have a cough, mostly nonproductive. I was asked to see her in consultation. The patient denies any prior history of tobacco use, has never been diagnosed with asthma. No significant history of allergic rhinitis or postnasal drainage. She does wheeze at times. She has some reflux. Her medication list was reviewed. She is currently not on KERI inhibitor. PAST MEDICAL HISTORY: 1. Questionable pulmonary fibrosis. If anything, this is mild. I do not appreciate on the current CT of the chest. 2. Gastroesophageal reflux. 3. Hypertension. 4. Hypothyroidism. 5. Obstructive sleep apnea. 6. Coronary artery disease. PAST SURGICAL HISTORY: Status post coronary artery bypass grafting, knee replacement, right mastectomy, toe surgery. MEDICATIONS: List was reviewed. ALLERGIES: LIPITOR CAUSING MYALGIAS. SOCIAL HISTORY: She is currently , lost her back in 10/2015. No history of alcohol or tobacco use. FAMILY HISTORY: No family history of early lung disorders or pulmonary fibrosis. REVIEW OF SYSTEMS: As indicated above; otherwise, the 10-point system was reviewed and negative. CONSTITUTIONAL: No fever or chills. EYES: No changes in visual acuity. HENT: Sore throat, but no nasal congestion. RESPIRATORY: As indicated above. CARDIOVASCULAR: No chest pain. No pressure. GASTROINTESTINAL: No nausea, vomiting, diarrhea. Some reflux. GENITOURINARY: No dysuria or frequency. MUSCULOSKELETAL: No localized muscle aches or joint pain. SKIN: No new skin rashes. NEUROLOGIC: No headaches, diplopia or blurred vision. PHYSICAL EXAMINATION: VITAL SIGNS: Stable. She is currently on room air, saturation 94%. HEENT: Eyes, the sclerae were nonicteric. NECK: Jugular venous distention was not elevated. No lymphadenopathy. CHEST: Full expansion. LUNGS: Adequate airway flow with no wheezes. CARDIOVASCULAR: Regular rate and rhythm with S1, S2, no S3. ABDOMEN: Soft, nontender, nondistended. EXTREMITIES: No clubbing, cyanosis or edema. NEUROLOGIC: The patient was awake, alert, following commands. A detailed neuro exam was not performed. LABORATORY DATA: CT angiogram was reviewed from the . Once again, there is a questionable basilar infiltrates and atelectasis. No pulmonary emboli. Chest x-ray today revealed some increased lung markings on the left. White count was normal, initially elevated. Electrolytes were noted. IMPRESSION: 1. Cough, suspect multifactorial secondary to reflux and adult-onset asthma. 2. Possible adult-onset asthma. 3. Recent pneumonia. 4. Leukocytosis. 5. Coronary artery disease with previous coronary artery bypass grafting. 6. Obstructive sleep apnea. 7. Hypertension. PLAN: 1. Recommend continue use of albuterol p.r.n., follow up in the office if she requires albuterol on average once or twice per day. She will be placed on a steroid in metered-dose inhaler containing steroids. 2. Okay to discharge home on prednisone taper and doxycycline and Zithromax. 3. Follow up in my office in 4 weeks. 4. A 6-minute walk prior to discharge. 5. Avoid caffeinated beverages. I do appreciate the privilege in sharing in the patient's care. MIS SAGE MD DR: ALEXANDRA/sarah JOB#: [id number] / [id number]
[2016-12-28 19:00] VITALS: BP 141/79
[2016-12-28] MEDS: METOPROLOL SUCC 24HR ER 25 MG TAB.ER.24H. PO SCH (21:06)
[2016-12-28] MEDS: cefTRIAXone IV Push 1 GM VIAL. IVP SCH (21:08)
[2016-12-28 23:00] VITALS: BP 109/71
[2016-12-29 03:00] VITALS: BP 118/74
[2016-12-29] MEDS: BENZONATATE 100 MG CAPSULE. PO SCH (05:50)
[2016-12-29] MEDS: PANTOPRAZOLE 40 MG TABLET.DR. PO SCH (05:50)
[2016-12-29] MEDS: LEVOTHYROXINE 175 MCG TABLET PO SCH (05:50)
[2016-12-29] MEDS: IPRATRPIUM/ALBUTEROL 0.5/2.5MG 3 ML NEBU. NEB SCH (06:58)
[2016-12-29 07:00] VITALS: BP 122/72
[2016-12-29] MEDS: SODIUM CHLORIDE 5% OPHTH SOLUTION 15ML BOTTLE. OU SCH (08:23)
[2016-12-29] MEDS: MULTIVITAMIN with MINERAL TABLET. PO SCH (08:23)
[2016-12-29] MEDS: CALCIUM CARB/VIT D3 500/200 TABLET. PO SCH (08:23)
[2016-12-29 08:24] VITALS: BP 122/72
[2016-12-29] MEDS: ASPIRIN CHEWABLE 81 MG TABLET. PO SCH (08:24)
[2016-12-29] MEDS: LOSARTAN POTASSIUM 50 MG TABLET. PO SCH (08:24)
[2016-12-29] MEDS: predniSONE 20 MG TABLET PO SCH (08:24)
[2016-12-29] MEDS: CHLORTHALIDONE 25 MG TABLET. PO SCH (08:24)
[2016-12-29] MEDS: POTASSIUM CHLORIDE 20 MEQ TABLET.ER. PO SCH (08:25)
--- NOTE | 2016-12-29 09:34 | PDOC ---
GENERAL General: see discharge summary. Problems: VITAL SIGNS Vital Signs: Vital Signs Date Time Temp Pulse Resp B/P (MAP) Pulse Ox O2 Delivery O2 Flow Rate FiO2 12/29/16 08:24 93 122/72 12/29/16 08:00 Room Air 12/29/16 07:00 97.7 20 97 97.7 I & O I & O Intake and Output 12/29/16 07:00 Intake Total 920 ml Balance 920 ml Intake Oral 920 ml # Voids 6 ALLERGIES Allergies: Allergies Coded Allergies Type Severity Reaction Last Updated Verified atorvastatin Allergy Intermediate 12/25/16 Yes MEDS Medications: Current Medications Medications (Trade) Dose Ordered Sig/Deepa Start Time Stop Time Status Last Admin Dose Admin Acetaminophen (Tylenol) 650 mg PRN Q4HRS PRN 12/24/16 23:45 12/25/16 23:44 DC Albuterol/ Ipratropium (Duoneb) 3 ml RTQID 12/25/16 12:00 12/29/16 06:58 3 ML Aspirin (Children'S Aspirin) 81 mg DAILY 12/25/16 13:00 12/29/16 08:24 81 MG Azithromycin 250 ml @ 250 mls/hr 1X ONCE 12/24/16 23:45 12/25/16 00:44 DC 12/25/16 01:47 250 MLS/HR Benzonatate (Tessalon Perle) 100 mg Q8HRS 12/26/16 15:30 12/29/16 05:50 100 MG Calcium/Vitamin D (Oscal D 500mg/ 200uts) 1 tab [id number] 12/26/16 08:00 12/29/16 08:23 1 TAB Ceftriaxone Sodium 1 gm/ Dextrose 50 ml @ 100 mls/hr Q24H 12/25/16 11:30 UNV Ceftriaxone Sodium (Rocephin) 1 gm Q24H 12/25/16 21:00 12/28/16 21:08 1 GM Chlorthalidone (Thalitone) 25 mg DAILY 12/25/16 13:00 12/29/16 08:24 25 MG Fentanyl Citrate (Fentanyl 2ml Vial) 50 mcg PRN Q1HR PRN 12/24/16 23:45 12/25/16 23:44 DC Info (Do NOT chart on this entry -- for MONITORING) 1 each PRN DAILY PRN 12/24/16 23:45 12/26/16 23:44 DC Iohexol (Omnipaque 300 Mg/ml) 75 ml 1X ONCE 12/24/16 23:45 12/24/16 23:46 DC 12/24/16 23:57 75 ML Levothyroxine Sodium (Synthroid) 175 mcg DAILY07 12/25/16 13:00 12/29/16 05:50 175 MCG Losartan Potassium (Cozaar) 50 mg DAILY 12/25/16 13:00 12/29/16 08:24 50 MG Metoprolol Succinate (Toprol Xl) 25 mg HS 12/25/16 21:00 12/28/16 21:06 25 MG Multivitamins (Thera M Plus) 1 tab DAILY 12/26/16 09:00 12/29/16 08:23 1 TAB Nitroglycerin (Nitrostat) 0.4 mg PRN Q5MIN PRN 12/25/16 11:30 Ondansetron HCl (Zofran) 4 mg PRN Q8HRS PRN 12/24/16 23:45 12/25/16 23:44 DC Pantoprazole Sodium (Protonix) 40 mg DAILYAC 12/25/16 13:00 12/29/16 05:50 40 MG Potassium Chloride (Klor-Con) 40 meq BID 12/25/16 12:00 12/29/16 08:25 40 MEQ Prednisone (Prednisone) 40 mg DAILY 12/27/16 09:00 12/29/16 08:24 40 MG Sodium Chloride (Ronald-5) 2 drop DAILY 12/25/16 13:00 12/29/16 08:23 2 DROP OSCAR CH MD Dec 29, 2016 09:34
--- NOTE | 2016-12-29 11:14 | DS ---
DATE OF DISCHARGE: 12/29/2016 PRIMARY DIAGNOSIS: Left lower lobe pneumonia. ADDITIONAL DIAGNOSES: Shortness of breath; mild pulmonary fibrosis, probable adult-onset asthma; coronary artery disease status post CABG; history of prior breast cancer; leukocytosis. CHIEF COMPLAINT AND HISTORY OF PRESENT ILLNESS: This 76-year-old white female presented with sore throat and cough to the Emergency Room with significant shortness of breath on the day of admission. She was felt to have a left lower lobe pneumonia as well as a possible urinary tract infection, leukocytosis of 15,000 and was admitted. SUMMARY OF STAY: The patient was admitted, treated throughout the stay with IV antibiotics, pulmonary toilet with improvement in her leukocytosis; however, she continued to have a harsh cough and some wheezing for which prednisone was eventually added and seemed to improve. Pulmonary saw her in consultation and felt she might have some adult-onset asthma. In addition, recommended albuterol and possibly steroid inhaler as an outpatient, but that she could be safely dismissed on doxycycline and prednisone and this was accomplished on the . DISPOSITION: The patient is discharged to home, regular diet. Activity as tolerated. Office in 1 week with consideration of inhalers at that point in time. DISCHARGE MEDICATIONS: She will be on her regular home medications plus doxycycline 100 b.i.d. for a week and a prednisone taper of 40 daily for 3 days, 30 for 3 days, 20 for 3 days, 10 for 3 days, 5 for 3 days and off. OSCAR CH MD DR: CITLALI/sarah JOB#: [id number] / [id number]
--- NOTE | 2017-01-01 08:24 | PN ---
DATE: 12/28/2016 ATTENDING PHYSICIAN: Dr. Arben Gutierrez. The patient underwent spirometry on 12/28/2016. The FEV1 to FVC ratio was 77%. FEV1 was 84% of predicted, 2.01 liters. FVC was 81% of predicted, 2.59 liters. IMPRESSION: Spirometry indicative of possible restrictive process. Recommend full pulmonary function testing with lung volumes pre and post bronchodilator. MIS SAGE MD DR: ALEXANDRA/nts JOB#: [id number] / [id number]
== END 2016-12-29 10:39 | disposition home or self-care (01) | DRG 871 ==
LOC: ER 22:12 → 5 NORTH 23:34
PROVIDERS: ADMIT Family Medicine; ATTEND Family Medicine
DX: A41.9 Sepsis, unspecified organism (principal); J15.6 Pneumonia due to other Gram-negative bacteria; J15.9 Unspecified bacterial pneumonia; N39.0 Urinary tract infection, site not specified; J84.112 Idiopathic pulmonary fibrosis; K21.9 Gastro-esophageal reflux disease without esophagitis; E03.9 Hypothyroidism, unspecified; E87.6 Hypokalemia; G47.33 Obstructive sleep apnea (adult) (pediatric); I10 Essential (primary) hypertension; I25.10 Atherosclerotic heart disease of native coronary artery without angina pectoris; Z96.659 Presence of unspecified artificial knee joint; J45.909 Unspecified asthma, uncomplicated; Z85.3 Personal history of malignant neoplasm of breast; Z95.1 Presence of aortocoronary bypass graft; Z91.09 Other allergy status, other than to drugs and biological substances; Z98.49 Cataract extraction status, unspecified eye; Z90.10 Acquired absence of unspecified breast and nipple
CPT/HCPCS: 36415; 71020; 71275; 80048; 80053; 81001; 83605; 83690; 84484; 85025; 87040; 87086; 87804; 93005; 94010; 94250; 94620; 94640; 94667; 94760; J0456; J0690; J0696; J7512; J7620; Q9967

== ENCOUNTER → 2017-07-18 | Outpatient (CLI) | payer MEDICARE, BC | END | disposition home or self-care (01) | LOC: MRI 10:53 | DX: M51.36 Other intervertebral disc degeneration, lumbar region (principal); M48.061 Spinal stenosis, lumbar region without neurogenic claudication | CPT/HCPCS: 72148 ==

== ENCOUNTER → 2017-08-30 | Outpatient (CLI) | payer MEDICARE, BC ==
[~2017-08-30] MED LIST changes: -ASPI-630 PO; -ATOR40TA PO; -CALC-77 PO; -CHLO25TA PO; +IOHEXOL 180 MG/ML 10 ML VIAL.; -LEVO175T5 PO; +LIDOCAINE 1% PF 2 ML VIAL.; -METO-239 PO; -MULT-658 PO; -NINT150C PO; -NITR0.4T22 SL; -OMEP20CA9 PO; -POLY17PO29 PO; -SODI15DR5 OP; -TELM40TA PO; +methylPREDNISolone ACETATE 40 MG/ML VIAL.; +methylPREDNISolone ACETATE 80 MG/ML VIAL.
== END | disposition home or self-care (01) ==
LOC: PNCL 08:25
DX: M51.16 Intervertebral disc disorders with radiculopathy, lumbar region (principal); M48.061 Spinal stenosis, lumbar region without neurogenic claudication; I10 Essential (primary) hypertension; M19.90 Unspecified osteoarthritis, unspecified site; E03.9 Hypothyroidism, unspecified; Z85.3 Personal history of malignant neoplasm of breast; Z96.651 Presence of right artificial knee joint; Z90.11 Acquired absence of right breast and nipple; Z95.1 Presence of aortocoronary bypass graft; Z98.890 Other specified postprocedural states; Z79.82 Long term (current) use of aspirin; Z79.899 Other long term (current) drug therapy; Z88.8 Allergy status to other drugs, medicaments and biological substances; Z82.49 Family history of ischemic heart disease and other diseases of the circulatory system; Z98.42 Cataract extraction status, left eye; Z98.41 Cataract extraction status, right eye; Z96.1 Presence of intraocular lens; Z95.5 Presence of coronary angioplasty implant and graft; E78.00 Pure hypercholesterolemia, unspecified; G47.30 Sleep apnea, unspecified; K21.9 Gastro-esophageal reflux disease without esophagitis; Z83.3 Family history of diabetes mellitus
CPT/HCPCS: 62323; J1030; J1040; Q9965

== ENCOUNTER 2017-09-30 11:27 | Emergency (ER) | payer MEDICARE, BC ==
[~2017-09-30] VITALS: Ht 170.2 cm; Wt 90.7 kg
[~2017-09-30 11:27] MED LIST changes: +ASPI-630 PO; +ATOR40TA PO; +CALC-77 PO; +CHLO25TA PO; -IOHEXOL 180 MG/ML 10 ML VIAL.; +LEVO175T5 PO; -LIDOCAINE 1% PF 2 ML VIAL.; +METO-239 PO; +MULT-658 PO; +NINT150C PO; +NITR0.4T22 SL; +OMEP20CA9 PO; +POLY17PO29 PO; +SIMV40TA3 PO; +SODI15DR5 OP; +TELM40TA PO; -methylPREDNISolone ACETATE 40 MG/ML VIAL.; -methylPREDNISolone ACETATE 80 MG/ML VIAL.
--- NOTE | 2017-09-30 11:51 | PHYS DOC ---
Past Medical History Past Medical History: GERD, Hypertension, Hypothyroid, Other Additional Past Medical Histor: INTERSTITIAL PULMONARY FIBROSIS,SLEEP APNEA Past Surgical History: Coronary Bypass Surgery, Knee Replacement, Other Additional Past Surgical Histo: R MASTECTOMY,TOE,CATARACTS Alcohol Use: None Drug Use: None Adult General Chief Complaint Chief Complaint: NAUSEA/VOMITING/DIARRHA HPI HPI Patient is a 76 year old female who is brought in by family with chief complaint of nausea vomiting and diarrhea. This patient just started Namenda 3 days ago for some mild memory loss since starting the medication she has been feeling weaker she has had vomiting and diarrhea she describes some headache as well as dull gradual in onset associated with the above symptoms no fever no chest pain no shortness of breath no real abdominal pain just the vomiting and diarrhea nonbloody patient has a past medical history of pulmonary fibrosis hypertension carotid stenosis CABG back in 2016. She says that she sees blue and purple when she closes her eyes and she was instructed to come to the hospital should that occur because she might be going into a coma so granddaughter brought her here. Review of Systems Review of Systems Constitutional: Denies fever or chills [] Eyes: GI: Denies abdominal pain, : Urinary frequency All other systems were reviewed and found to be within normal limits, except as documented in this note. Current Medications Current Medications Current Medications Medications (Trade) Dose Ordered Sig/Deepa Start Time Stop Time Status Last Admin Dose Admin Amlodipine Besylate (Norvasc) 10 mg 1X ONCE 09/30/17 12:00 09/30/17 12:01 DC 09/30/17 12:04 10 MG Fentanyl Citrate (Fentanyl 2ml Vial) 50 mcg 1X ONCE 09/30/17 12:15 09/30/17 12:16 DC 09/30/17 12:09 50 MCG Labetalol HCl (Normodyne Iv Push) 20 mg 1X ONCE 09/30/17 13:30 09/30/17 13:31 DC 09/30/17 13:40 20 MG Ondansetron HCl (Zofran) 4 mg 1X ONCE 09/30/17 12:15 09/30/17 12:16 DC 09/30/17 12:04 4 MG Potassium Chloride (KCl Oral Soln) 40 meq 1X ONCE 09/30/17 13:00 09/30/17 13:01 DC 09/30/17 13:01 40 MEQ Sodium Chloride 500 ml @ 500 mls/hr 1X ONCE 09/30/17 14:15 09/30/17 14:33 DC 09/30/17 14:08 500 MLS/HR Allergies Allergies Allergies Coded Allergies Type Severity Reaction Last Updated Verified atorvastatin Allergy Intermediate 12/25/16 Yes Physical Exam Physical Exam Constitutional: Well developed, well nourished, no acute distress, non-toxic appearance. [] HENT: Normocephalic, atraumatic, bilateral external ears normal, oropharynx moist, no oral exudates, nose normal. [] Eyes: PERRLA, EOMI, conjunctiva normal, no discharge. [] Neck: Normal range of motion, no tenderness, supple, no stridor. [] Cardiovascular: 3/6 systolic murmur and patient has irregular rhyhtm Lungs & Thorax: faint crackles lung bases Abdomen: Bowel sounds normal, soft, no tenderness, no masses, no pulsatile masses. [] Skin: Warm, dry, no erythema, no rash. [] Back: No tenderness, no CVA tenderness. [] Extremities: No tenderness, no cyanosis, no clubbing, ROM intact, no edema. [] Neurologic: Alert and oriented X 3, normal motor function, normal sensory function, no focal deficits noted. [] Current Patient Data Vital Signs Vital Signs Date Time Temp Pulse Resp B/P (MAP) Pulse Ox O2 Delivery O2 Flow Rate FiO2 09/30/17 13:40 78 226/91 09/30/17 13:39 18 97 Room Air 09/30/17 11:49 97.9 97.9 Lab Values Laboratory Tests Test 09/30/17 11:40 09/30/17 13:30 White Blood Count 9.9 x10^3/uL (4.0-11.0) Red Blood Count 4.56 x10^6/uL (3.50-5.40) Hemoglobin 14.2 g/dL (12.0-15.5) Hematocrit 41.3 % (36.0-47.0) Mean Corpuscular Volume 91 fL (79-100) Mean Corpuscular Hemoglobin 31 pg (25-35) Mean Corpuscular Hemoglobin Concent 34 g/dL (31-37) Red Cell Distribution Width 13.5 % (11.5-14.5) Platelet Count 235 x10^3/uL (140-400) Neutrophils (%) (Auto) 75 % (31-73) H Lymphocytes (%) (Auto) 16 % (24-48) L Monocytes (%) (Auto) 6 % (0-9) Eosinophils (%) (Auto) 2 % (0-3) Basophils (%) (Auto) 1 % (0-3) Neutrophils # (Auto) 7.4 x10^3uL (1.8-7.7) Lymphocytes # (Auto) 1.6 x10^3/uL (1.0-4.8) Monocytes # (Auto) 0.6 x10^3/uL (0.0-1.1) Eosinophils # (Auto) 0.2 x10^3/uL (0.0-0.7) Basophils # (Auto) 0.1 x10^3/uL (0.0-0.2) Sodium Level 135 mmol/L (136-145) L Potassium Level 3.3 mmol/L (3.5-5.1) L Chloride Level 97 mmol/L (98-107) L Carbon Dioxide Level 29 mmol/L (21-32) Anion Gap 9 (6-14) Blood Urea Nitrogen 16 mg/dL (7-20) Creatinine 0.7 mg/dL (0.6-1.0) Estimated GFR (Cockcroft-Gault) 81.6 BUN/Creatinine Ratio 23 (6-20) H Glucose Level 129 mg/dL (70-99) H Calcium Level 10.3 mg/dL (8.5-10.1) H Total Bilirubin 0.6 mg/dL (0.2-1.0) Aspartate Amino Transferase (AST) 18 U/L (15-37) Alanine Aminotransferase (ALT) 26 U/L (14-59) Alkaline Phosphatase 73 U/L (46-116) Troponin I Quantitative < 0.017 ng/mL (0.000-0.055) Total Protein 7.8 g/dL (6.4-8.2) Albumin 4.1 g/dL (3.4-5.0) Albumin/Globulin Ratio 1.1 (1.0-1.7) Lipase 174 U/L (73-393) Urine Collection Type Unknown Urine Color Yellow Urine Clarity Clear Urine pH 7.0 Urine Specific [place] 1.010 Urine Protein Negative mg/dL (NEG-TRACE) Urine Glucose (UA) Negative mg/dL (NEG) Urine Ketones (Stick) Negative mg/dL (NEG) Urine Blood Small (NEG) Urine Nitrite Negative (NEG) Urine Bilirubin Negative (NEG) Urine Urobilinogen Dipstick 0.2 mg/dL (0.2 mg/dL) Urine Leukocyte Esterase Negative (NEG) Urine RBC 6-10 /HPF (0-2) Urine WBC Occ /HPF (0-4) Urine Squamous Epithelial Cells Few /LPF Urine Bacteria 0 /HPF (0-FEW) Laboratory Tests 09/30/17 11:40 Laboratory Tests 09/30/17 11:40 EKG EKG [] Interpretation Time: nsr rate [address] depressions laterally no stemi. pvc prsent. qtc 490 Radiology/Procedures Radiology/Procedures [] Impressions: FINDINGS: A frontal view of the chest is obtained. There is stable diffuse interstitial prominence. There is no consolidation, pleural effusion or pneumothorax. There is a stable prominent cardiac silhouette and evidence of prior CABG. There are right axillary clips and right mastectomy changes. IMPRESSION: Stable diffuse interstitial prominence likely due to chronic interstitial change or trace congestion. Electronically signed by: Sanjuana Castro MD (09/30/2017 12:37 PM) [facility] DICTATED and SIGNED BY: SANJUANA CASTRO MD DATE: 09/30/17 1233 Course & Med Decision Making Course & Med Decision Making Pertinent Labs and Imaging studies reviewed. (See chart for details) 76-year-old female presenting with nausea vomiting diarrhea after starting Namenda. Patient does have a cardiac history this does appear to be primarily a medication side effect based on the timeline but we will get basic lab work chest x-ray and urinalysis to rule out other causes. Patient was given the above treatment and was much much better she looked much better. I did give her some labetalol to bring down her blood pressure that was 226 and that did come down quite rapidly actually 110 range. Patient was feeling much better than the nausea resolved I recommended that she stop her Namenda. Potassium was repleted in the emergency room and she was advised to increase potassium intake. The patient's troponin was negative and she never had any chest pain. I have low suspicion for acute coronary syndrome I think this was a medication effect. Noted the UA small amount of blood she knows to get follow-up for this is likely related to bladder prolapse that she R he knows about She is advised to follow-up with her primary care doctor on Monday for further instructions. Shashi Disclaimer Buddyon Disclaimer This electronic medical record was generated, in whole or in part, using a voice recognition dictation system. Departure Departure Impression: Primary Impression: Medication side effect Disposition: HOME, SELF-CARE Condition: IMPROVED Referrals: OSCAR CH MD (PCP) WENDY BOWEN MD Sep 30, 2017 11:51
[2017-09-30 11:56] LABS: BASO # 0.1 x10^3/uL (0.0-0.2); BASO % 1 % (0-3); EOS # 0.2 x10^3/uL (0.0-0.7); EOS % 2 % (0-3); HEMATOCRIT 41.3 % (36.0-47.0); HEMOGLOBIN 14.2 g/dL (12.0-15.5); LYMPH # 1.6 x10^3/uL (1.0-4.8); LYMPH % 16 % (24-48); MEAN CORPUSCULAR HEMOGLOBIN 31 pg (25-35); MEAN CORPUSCULAR HGB CONC 34 g/dL (31-37); MEAN CORPUSCULAR VOLUME 91 fL (79-100); MONO # 0.6 x10^3/uL (0.0-1.1); MONO % 6 % (0-9); NEUT # 7.4 x10^3uL (1.8-7.7); NEUT % 75 % (31-73); PLATELET COUNT 235 x10^3/uL (140-400); RED BLOOD COUNT 4.56 x10^6/uL (3.50-5.40); RED CELL DISTRIBUTION WIDTH 13.5 % (11.5-14.5); WHITE BLOOD COUNT 9.9 x10^3/uL (4.0-11.0)
[2017-09-30] MEDS ORDERED: amLODIPine BESYLATE 5 MG TABLET PO ONE (12:00)
[2017-09-30] MEDS ORDERED: IV NORMAL SALINE 500ML BAG 500 ML IV ONE ×2 (12:00→14:15)
[2017-09-30 12:03] LABS: CALCIUM 10.3 mg/dL (8.5-10.1); CREATININE 0.7 mg/dL (0.6-1.0); GFR 81.6; POTASSIUM 3.3 mmol/L (3.5-5.1)
[2017-09-30 12:09] LABS: ALBUMIN 4.1 g/dL (3.4-5.0); ALBUMIN/GLOBULIN RATIO 1.1 (1.0-1.7); TOTAL BILIRUBIN 0.6 mg/dL (0.2-1.0); TOTAL PROTEIN 7.8 g/dL (6.4-8.2)
[2017-09-30] MEDS ORDERED: ONDANSETRON PF 4 MG/2 ML VIAL. IV ONE (12:15)
[2017-09-30] MEDS ORDERED: fentaNYL PF VIAL 100 MCG/2 ML VIAL IV ONE (12:15)
--- NOTE | 2017-09-30 12:21 | EKG ---
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
--- NOTE | 2017-09-30 12:40 | RAD ---
EXAM: Chest, single view. HISTORY: Shortness of breath. COMPARISON: 12/27/2016 FINDINGS: A frontal view of the chest is obtained. There is stable diffuse interstitial prominence. There is no consolidation, pleural effusion or pneumothorax. There is a stable prominent cardiac silhouette and evidence of prior CABG. There are right axillary clips and right mastectomy changes. IMPRESSION: Stable diffuse interstitial prominence likely due to chronic interstitial change or trace congestion. Electronically signed by: Sanjuana Castro MD (09/30/2017 12:37 PM) [facility]
[2017-09-30] MEDS ORDERED: POTASSIUM CHLORIDE 20 MEQ/15 ML ORAL LIQUID. PO ONE (13:00)
[2017-09-30] MEDS ORDERED: LABETALOL 20 MG/4 ML DISP.SYRIN. IVP ONE (13:30)
[2017-09-30 13:40] VITALS: BP 226/91
[2017-09-30 13:43] LABS: BILIRUBIN,URINE NEGATIVE (NEG); CLARITY,URINE CLEAR; COLOR,URINE YELLOW; NITRITE,URINE NEGATIVE (NEG); PROTEIN,URINE NEGATIVE (NEG-TRACE); UROBILINOGEN,URINE 0.2 mg/dL (0.2 mg/dL)
[2017-09-30 13:50] LABS: BACTERIA,URINE 0 /HPF (0-FEW); SQUAMOUS EPITHELIAL CELL,UR FEW /LPF; WBC,URINE OCC /HPF (0-4)
== END 2017-09-30 14:33 | disposition home or self-care (01) ==
LOC: ER 11:27
DX: R11.2 Nausea with vomiting, unspecified (principal); R19.7 Diarrhea, unspecified; T43.8X5A Adverse effect of other psychotropic drugs, initial encounter; Y92.89 Other specified places as the place of occurrence of the external cause; R51 Headache; R41.3 Other amnesia; I10 Essential (primary) hypertension; K21.9 Gastro-esophageal reflux disease without esophagitis; E03.9 Hypothyroidism, unspecified; Z95.5 Presence of coronary angioplasty implant and graft; Z91.041 Radiographic dye allergy status
CPT/HCPCS: 36415; 71045; 80053; 81001; 83690; 84484; 85025; 93005; 96361; 96374; 96375; 99285; J2405; J3010; J3490; J7040

== ENCOUNTER → 2017-11-24 | Outpatient (CLI) | payer MEDICARE, BC ==
[~2017-11-24] MED LIST changes: +DONE5TAB56 PO; +IOHEXOL 180 MG/ML 10 ML VIAL. ONE; +LIDOCAINE 1% PF 2 ML VIAL. ONE; +methylPREDNISolone ACETATE 40 MG/ML VIAL. ONE; +methylPREDNISolone ACETATE 80 MG/ML VIAL. ONE
--- NOTE | 2017-11-24 22:56 | PAIN ---
DATE OF SERVICE: 11/24/2017 PROGRESS NOTE FOR PAIN CLINIC DIAGNOSES: Lumbar radiculopathy with lumbar degenerative disk disease and lumbar spinal stenosis. HISTORY OF PRESENT ILLNESS: The patient is a 77-year-old female who returns for followup status post lumbar epidural steroid injection x 1. The patient reports about 80% improvement since 08/30/2017. The patient reports still pain is returning to some extent in the low back and left lower extremity, mostly in the posterior gluteus, lateral thigh, lateral anterior thigh, medial thigh and medial knee on the left side, worse with standing, walking, changing positions and better with sitting or lying down. No loss of motor function, but the pain is becoming more constant, is a sharp pain, described as aching across the low back and shooting into the left leg. The patient reports it is 9 on a scale of 10 at its worst, 8 on average, 8 at its least and is an 8 today. 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 The patient reports she is sleeping well at night and it still does not awaken her from sleep at night. The patient reports no new motor or sensory deficits and no new bowel or bladder incontinence or other complaints. PHYSICAL EXAMINATION: VITAL SIGNS: The patient's blood pressure 159/101, pulse 88, respirations 18 and temperature 98.2 degrees Fahrenheit. Height is 5 feet 7 inches and weight is 204 pounds. GENERAL: The patient is awake, alert, oriented, appropriate and very pleasant demeanor. HEENT: Head is normocephalic and atraumatic. Extraocular movements are intact and symmetrical. Oral cavity: Mucous membranes are moist and pink. Dentition is intact. NECK: Shows anterior throat supple without palpable lymphadenopathy noted. Swallow reflex symmetrical. CHEST: Shows normal on inspection. Breath sounds clear to auscultation bilaterally. HEART: Shows S1 and S2 clear. No murmurs auscultated. ABDOMEN: Soft, nontender and nondistended. No palpable organomegaly is noted. No rebound or guarding demonstrated. BACK: Shows spine grossly in the midline, normal-appearing thoracic kyphosis. Minor flattening of the lumbar lordotic curvature. Lumbar paraspinous muscle shows symmetrical on inspection with palpation shows some mild tenderness but only diffusely in the low lumbar distribution bilaterally without evidence of atrophy or hypertrophy. No radiation and no trigger points. The patient has good rotational motion of the lumbar spine, both laterally as well as extension and flexion without difficulty. EXTREMITIES: Lower extremities show deep tendon reflexes at 1+ in the patellar and tendo-calcaneus tendons. Motor exam is strong with dorsiflexion, extension, quadriceps and hamstring flexion and equal bilaterally. Peripheral pulses are 1+ posterior tibia. No peripheral edema is noted. Options were discussed with the patient. The patient's old chart was reviewed as well as her current medication regimen updated. Current review of systems updated today as well. We will proceed with a second in the series of lumbar epidural steroid injection today with fluoroscopic guidance. Risks were again discussed including, but not limited to bleeding, infection, possibility of epidural hematoma, subsequent neurological compromise, dural puncture, headaches, spinal cord and/or nerve damage, side effects of steroid medication and poor results regarding pain control. The patient understands and wished to proceed. The patient will return to the clinic in approximately 2 weeks for followup, was counseled as to return appointment, activity level and side effects to be aware of. DIAGNOSIS: Lumbar radiculopathy with lumbar degenerative disk disease and lumbar spinal stenosis. PROCEDURE: Lumbar epidural steroid injection, translaminar approach at the L4-L5 level using C-arm fluoroscopic guidance under sterile prep and drape using local anesthetic. MEDICATION INJECTED: A total of 120 mg Depo-Medrol plus total of 10 mL of preservative-free normal saline and 2 mL of Isovue for contrast. CONDITION AT DISCHARGE: Stable. The patient tolerated the procedure well and had no complications. PETRONA ROMERO MD DR: PATIENCE/sarah JOB#: [id number] / [id number]
== END | disposition home or self-care (01) ==
LOC: PNCL 08:07
PROVIDERS: ATTEND Anesthesiology
DX: M54.16 Radiculopathy, lumbar region (principal); M51.36 Other intervertebral disc degeneration, lumbar region; M48.061 Spinal stenosis, lumbar region without neurogenic claudication; Z98.890 Other specified postprocedural states
CPT/HCPCS: 62323; J1030; J1040; Q9965

== ENCOUNTER 2018-08-18 17:27 | Emergency (ER) | payer MEDICARE, BC ==
[~2018-08-18] VITALS: Ht 170.2 cm; Wt 88.9 kg
[~2018-08-18 17:27] MED LIST changes: -CHLO25TA PO; +CHLO25TA10 PO; +EZET10TA18 PO; -IOHEXOL 180 MG/ML 10 ML VIAL. ONE; +LEVO200T5 PO; -LIDOCAINE 1% PF 2 ML VIAL. ONE; +MEMA10TA PO; +OMEP20CA10 PO; -OMEP20CA9 PO; -methylPREDNISolone ACETATE 40 MG/ML VIAL. ONE; -methylPREDNISolone ACETATE 80 MG/ML VIAL. ONE
--- NOTE | 2018-08-18 18:09 | PHYS DOC ---
Past Medical History Past Medical History: Cancer, GERD, Hypertension, Hypothyroid, Other Additional Past Medical Histor: PULMONARY FIBROSIS,SLEEP APNEA, BREAST CANCER, CYSTOCELE, PROLASPED BLADDER Past Surgical History: Coronary Bypass Surgery, Knee Replacement, Other Additional Past Surgical Histo: R MASTECTOMY,TOE,CATARACTS, cystocele repair Alcohol Use: None Drug Use: None Adult General Chief Complaint Chief Complaint: ALLERGIC REACTION HPI HPI Patient is a 77 year old female who presents with states that she thinks she is having allergic reaction to Zetia she started on August 06. Patient states she was also put on vaginal estrogen recently and has been 7 days. She states that she's had this cold chills all day and that is her only complaint. Review of Systems Review of Systems Constitutional: fever or chills [] Eyes: Denies change in visual acuity, redness, or eye pain [] HENT: Denies nasal congestion or sore throat [] Respiratory: Denies cough or shortness of breath [] Cardiovascular: No additional information not addressed in HPI [] GI: Denies abdominal pain, nausea, vomiting, bloody stools or diarrhea [] : Denies dysuria or hematuria [] Musculoskeletal: Denies back pain or joint pain [] Integument: Denies rash or skin lesions [] Neurologic: Denies headache, focal weakness or sensory changes [] Endocrine: Denies polyuria or polydipsia [] All other systems were reviewed and found to be within normal limits, except as documented in this note. Current Medications Current Medications Current Medications Medications (Trade) Dose Ordered Sig/Deepa Start Time Stop Time Status Last Admin Dose Admin Doxycycline Hyclate (Vibra-Tab) 100 mg 1X ONCE 08/18/18 18:30 08/18/18 18:31 DC Allergies Allergies Allergies Coded Allergies Type Severity Reaction Last Updated Verified atorvastatin Allergy Intermediate 12/25/16 Yes Physical Exam Physical Exam Constitutional: Well developed, well nourished, no acute distress, non-toxic appearance. [] HENT: Normocephalic, atraumatic, bilateral external ears normal, oropharynx moist, no oral exudates, nose normal. [] Eyes: PERRLA, EOMI, conjunctiva normal, no discharge. [] Neck: Normal range of motion, no tenderness, supple, no stridor. [] Cardiovascular:Heart rate regular rhythm, no murmur [] Lungs & Thorax: Bilateral lower breath sounds diminished to auscultation, Right upper lobe coarse, left upper lobe clear. [] Abdomen: Bowel sounds normal, soft, no tenderness, no masses, no pulsatile masses. [] Skin: Facial flushing. Warm, dry, no erythema, no rash. [] Back: No tenderness, no CVA tenderness. [] Extremities: No tenderness, no cyanosis, no clubbing, ROM intact, no edema. [] Neurologic: Alert and oriented X 3, normal motor function, normal sensory function, no focal deficits noted. [] Psychologic: Affect normal, judgement normal, mood normal. [] Current Patient Data Vital Signs Vital Signs Date Time Temp Pulse Resp B/P (MAP) Pulse Ox O2 Delivery O2 Flow Rate FiO2 08/18/18 17:45 98.0 94 16 177/85 (115) 99 Room Air 98.0 EKG EKG [] Radiology/Procedures Radiology/Procedures [] Course & Med Decision Making Course & Med Decision Making Patient is a 77 year old female who presents with states that she thinks she is having allergic reaction to Zetia she started on August 06. Patient states she was also put on vaginal estrogen recently and has been 7 days. She states that she's had this cold chills all day and that is her only complaint. Patient states she has had some burning with urination. Patient states she also has vaginal itching but that is nothing new. Patient denies chest pain, shortness of air, nausea, vomiting, diarrhea, rash, itching of the throat, headache, swelling of her throat, swelling of her mouth or tongue, itching of her skin, dizziness or numbness or tingling, abdominal pain, weakness, body aches. Right upper lung lobe is coarse lower lung lobes are diminished with left upper lung lobe clear to auscultation. Vital signs are within normal limits and she is afebrile. Skin is pink warm and dry although the patient's face does look flushed. PERRLA. Patient denies any pain. Alert and oriented. Speaks in full clear sentences. Ambulatory with a steady gait. Mucous membranes are moist. Patient states she's been eating and drinking appropriately. Patient states she's been having the chills since this morning but states otherwise she feels fine. There is no rash seen on the patients body. Chest xray read by Dr Serrano with pulmonary infiltrate or early pneumonia. Patient to be treated with antibiotics and to follow up with her primary care provider. Patient is given first dose of doxycycline in the ED. Patient handed to Dr Serrano and he is going to await urinalysis results. Dragon Disclaimer Dragon Disclaimer This electronic medical record was generated, in whole or in part, using a voice recognition dictation system. Departure Departure Impression: Primary Impression: Pneumonia Disposition: HOME, SELF-CARE Condition: STABLE Referrals: OSCAR CH MD (PCP) Patient Instructions: Pneumonia, Adult Additional Instructions: Follow up with primary care provider. Take medication as prescribed. Scripts Doxycycline Hyclate (DOXYCYCLINE HYCLATE) 100 Mg Tablet 1 TAB PO BID for 10 Days, #20 TAB Prov: ISHMAEL GUAJARDO APRN 08/18/18 Problem Qualifiers Primary Impression: Pneumonia Pneumonia type: due to unspecified organism Laterality: right Lung location: middle lobe of lung Qualified Codes: J18.1 - Lobar pneumonia, unspecified organism ISHMAEL GUAJARDO APRN Aug 18, 2018 18:09
[2018-08-18] MEDS ORDERED: DOXY100T PO (18:29)
[2018-08-18] MEDS ORDERED: DOXYCYCLINE HYCLATE 100 MG TABLET PO ONE (18:30)
[2018-08-18 18:42] LABS: BILIRUBIN,URINE NEGATIVE (NEG); CLARITY,URINE CLOUDY; COLOR,URINE YELLOW
[2018-08-18 18:43] LABS: NITRITE,URINE NEGATIVE (NEG); PROTEIN,URINE 30 mg/dL (NEG-TRACE); UROBILINOGEN,URINE 0.2 mg/dL (0.2 mg/dL)
[2018-08-18] MEDS ORDERED: FLUC100T7 PO (18:57)
[2018-08-18 19:00] VITALS: BP 126/59
--- NOTE | 2018-08-19 00:30 | RAD ---
PA and lateral chest radiographs 08/18/2018 CLINICAL HISTORY: Chills. PA and lateral digital radiographs of the chest were obtained. Comparison study is dated 09/30/2017. Surgical changes are seen consistent with a CABG procedure. Surgical clips are seen within the right axilla. The cardiac silhouette is normal in size. The thoracic aorta is tortuous. Atherosclerotic calcification of the thoracic aorta is seen. No acute pulmonary infiltrate is noted. No pneumothorax or pleural effusion is seen. Degenerative changes are seen involving the thoracic spine. IMPRESSION: No acute abnormality is seen. Electronically signed by: Bert Hensley MD (08/19/2018 12:27 AM) [facility]
== END 2018-08-18 19:00 | disposition home or self-care (01) ==
LOC: ER 17:27
DX: J18.1 Lobar pneumonia, unspecified organism (principal); K21.9 Gastro-esophageal reflux disease without esophagitis; E03.9 Hypothyroidism, unspecified; I10 Essential (primary) hypertension; Z95.1 Presence of aortocoronary bypass graft; Z88.8 Allergy status to other drugs, medicaments and biological substances
CPT/HCPCS: 71046; 81001; 87086; 99285-25

== ENCOUNTER 2018-08-21 14:02 | Emergency (ER) | payer MEDICARE ==
[~2018-08-21 14:02] MED LIST changes: +DOXY100T PO; +FLUC100T7 PO
== END 2018-08-21 14:50 | disposition left against medical advice (07) ==
LOC: ER 14:02
DX: T46.6X5A Adverse effect of antihyperlipidemic and antiarteriosclerotic drugs, initial encounter (principal); Z53.21 Procedure and treatment not carried out due to patient leaving prior to being seen by health care provider; Y92.89 Other specified places as the place of occurrence of the external cause

== ENCOUNTER 2018-09-11 16:40 | Inpatient (IN) | payer MEDICARE ==
[~2018-09-11] VITALS: Ht 170.2 cm; Wt 90.7 kg
--- NOTE | 2018-09-11 18:43 | PHYS DOC ---
Past Medical History Past Medical History: Cancer, GERD, Hypertension, Hypothyroid, Other Additional Past Medical Histor: PULMONARY FIBROSIS,SLEEP APNEA, BREAST CANCER, CYSTOCELE, PROLASPED BLADDER Past Surgical History: Coronary Bypass Surgery, Knee Replacement, Other Additional Past Surgical Histo: R MASTECTOMY,TOE,CATARACTS, cystocele repair Alcohol Use: None Drug Use: None Adult General Chief Complaint Chief Complaint: ALTERED MENTAL STATUS HPI HPI Patient is a 77 year old [f__sex] who presents with [] Review of Systems Review of Systems Constitutional: Denies fever or chills [] Eyes: Denies change in visual acuity, redness, or eye pain [] HENT: Denies nasal congestion or sore throat [] Respiratory: Denies cough or shortness of breath [] Cardiovascular: No additional information not addressed in HPI [] GI: Denies abdominal pain, nausea, vomiting, bloody stools or diarrhea [] : Denies dysuria or hematuria [] Musculoskeletal: Denies back pain or joint pain [] Integument: Denies rash or skin lesions [] Neurologic: Denies headache, focal weakness or sensory changes [] Endocrine: Denies polyuria or polydipsia [] All other systems were reviewed and found to be within normal limits, except as documented in this note. Current Medications Current Medications Current Medications Medications (Trade) Dose Ordered Sig/Deepa Start Time Stop Time Status Last Admin Dose Admin Labetalol HCl (Normodyne Iv Push) 10 mg 1X ONCE 09/11/18 19:30 09/11/18 19:31 DC 09/11/18 20:34 10 MG Magnesium Sulfate 50 ml @ 25 mls/hr 1X ONCE 09/11/18 19:45 09/11/18 21:44 09/11/18 20:34 25 MLS/HR Ondansetron HCl (Zofran) 4 mg PRN Q8HRS PRN 09/11/18 20:45 09/12/18 20:44 Potassium Chloride (Klor-Con) 40 meq 1X ONCE 09/11/18 19:45 09/11/18 19:46 DC 09/11/18 20:34 40 MEQ Sodium Chloride 1,000 ml @ 1,000 mls/hr 1X ONCE 09/11/18 18:45 09/11/18 19:44 DC 09/11/18 20:34 1,000 MLS/HR Allergies Allergies Allergies Coded Allergies Type Severity Reaction Last Updated Verified atorvastatin Allergy Intermediate 12/25/16 Yes Physical Exam Physical Exam Constitutional: Well developed, well nourished, no acute distress, non-toxic appearance. [] HENT: Normocephalic, atraumatic, bilateral external ears normal, oropharynx moist, no oral exudates, nose normal. [] Eyes: PERRLA, EOMI, conjunctiva normal, no discharge. [] Neck: Normal range of motion, no tenderness, supple, no stridor. [] Cardiovascular:Heart rate regular rhythm, no murmur [] Lungs & Thorax: Bilateral breath sounds clear to auscultation [] Abdomen: Bowel sounds normal, soft, no tenderness, no masses, no pulsatile masses. [] Skin: Warm, dry, no erythema, no rash. [] Back: No tenderness, no CVA tenderness. [] Extremities: No tenderness, no cyanosis, no clubbing, ROM intact, no edema. [] Neurologic: Alert and oriented X 3, normal motor function, normal sensory function, no focal deficits noted. [] Psychologic: Affect normal, judgement normal, mood normal. [] Current Patient Data Vital Signs Vital Signs Date Time Temp Pulse Resp B/P (MAP) Pulse Ox O2 Delivery O2 Flow Rate FiO2 09/11/18 20:34 82 186/108 09/11/18 18:40 97.8 16 98 Room Air 97.8 Lab Values Laboratory Tests Test 09/11/18 18:25 09/11/18 18:47 Glucose (Fingerstick) 135 mg/dL (70-99) H White Blood Count 10.0 x10^3/uL (4.0-11.0) Red Blood Count 4.67 x10^6/uL (3.50-5.40) Hemoglobin 14.4 g/dL (12.0-15.5) Hematocrit 41.4 % (36.0-47.0) Mean Corpuscular Volume 89 fL (79-100) Mean Corpuscular Hemoglobin 31 pg (25-35) Mean Corpuscular Hemoglobin Concent 35 g/dL (31-37) Red Cell Distribution Width 13.1 % (11.5-14.5) Platelet Count 301 x10^3/uL (140-400) Neutrophils (%) (Auto) 75 % (31-73) H Lymphocytes (%) (Auto) 16 % (24-48) L Monocytes (%) (Auto) 7 % (0-9) Eosinophils (%) (Auto) 1 % (0-3) Basophils (%) (Auto) 0 % (0-3) Neutrophils # (Auto) 7.5 x10^3/uL (1.8-7.7) Lymphocytes # (Auto) 1.6 x10^3/uL (1.0-4.8) Monocytes # (Auto) 0.7 x10^3/uL (0.0-1.1) Eosinophils # (Auto) 0.1 x10^3/uL (0.0-0.7) Basophils # (Auto) 0.0 x10^3/uL (0.0-0.2) Prothrombin Time 13.4 SEC (11.7-14.0) Prothrombin Time INR 1.1 (0.8-1.1) Activated Partial Thromboplast Time 36 SEC (24-38) Sodium Level 135 mmol/L (136-145) L Potassium Level 2.9 mmol/L (3.5-5.1) *L Chloride Level 95 mmol/L (98-107) L Carbon Dioxide Level 28 mmol/L (21-32) Anion Gap 12 (6-14) Blood Urea Nitrogen 8 mg/dL (7-20) Creatinine 0.7 mg/dL (0.6-1.0) Estimated GFR (Cockcroft-Gault) 81.4 BUN/Creatinine Ratio 11 (6-20) Glucose Level 124 mg/dL (70-99) H Lactic Acid Level 2.4 mmol/L (0.4-2.0) H Calcium Level 9.6 mg/dL (8.5-10.1) Magnesium Level 1.4 mg/dL (1.8-2.4) L Total Bilirubin 0.7 mg/dL (0.2-1.0) Aspartate Amino Transferase (AST) 17 U/L (15-37) Alanine Aminotransferase (ALT) 24 U/L (14-59) Alkaline Phosphatase 77 U/L (46-116) Ammonia < 10 mcmol/L (11-34) L Creatine Kinase 64 U/L (26-192) Creatine Kinase MB (Mass) 1.1 ng/mL (0.0-3.6) Creatine Kinase MB Relative Index % (0-4) Troponin I Quantitative < 0.017 ng/mL (0.000-0.055) EN-Nxv-S-Type Natriuretic Peptide 515 pg/mL (0-449) H Total Protein 7.9 g/dL (6.4-8.2) Albumin 4.0 g/dL (3.4-5.0) Albumin/Globulin Ratio 1.0 (1.0-1.7) Laboratory Tests 09/11/18 18:47 Laboratory Tests 09/11/18 18:47 EKG EKG @1846 NSR at 87bpm, NO ST elevation, Q wave in III Radiology/Procedures Radiology/Procedures [] Course & Med Decision Making Course & Med Decision Making Pertinent Labs and Imaging studies reviewed. (See chart for details) [] Dragon Disclaimer Dragon Disclaimer This electronic medical record was generated, in whole or in part, using a voice recognition dictation system. Departure Departure Impression: Primary Impression: Altered mental status Additional Impressions: Hypokalemia Hypomagnesemia Disposition: ADMITTED INPATIENT Admitting Physician: Oscar Ch Condition: STABLE Referrals: OSCAR CH MD (PCP) NIHSS Stroke Scale NIH Stroke Scale: NIH Stroke Scale Response (Comments) Value Level of Consciousness: 0 Alert/Responsive 0 LOC Questions: 0 Answers both correctly 0 LOC Commands: 0 Performs both tasks 0 Best Gaze: 0 Normal 0 Visual: 0 No visual loss 0 Facial Palsy: 0 Normal, symmetrical 0 Motor - Left Arm 0 No drift 0 Motor - Right Arm 0 No drift 0 Motor - Left Leg 0 No drift 0 Motor: Right Leg 0 No drift 0 Limb Ataxia: 0 Absent 0 Sensory: 0 No loss 0 Best Language: 0 Normal 0 Dysathria: 0 Normal 0 Extinction and Inattention: 0 Normal 0 Total 0 Problem Qualifiers Primary Impression: Altered mental status Altered mental status type: unspecified Qualified Codes: R41.82 - Altered mental status, unspecified VERO ADLER DO Sep 11, 2018 18:43
[2018-09-11] MEDS ORDERED: IV NORMAL SALINE 1000ML BAG 1,000 ML IV ONE (18:45)
[2018-09-11 19:04] LABS: BASO % 0 % (0-3); EOS # 0.1 x10^3/uL (0.0-0.7); EOS % 1 % (0-3); HEMATOCRIT 41.4 % (36.0-47.0); HEMOGLOBIN 14.4 g/dL (12.0-15.5); LYMPH # 1.6 x10^3/uL (1.0-4.8); LYMPH % 16 % (24-48); MEAN CORPUSCULAR HEMOGLOBIN 31 pg (25-35); MEAN CORPUSCULAR HGB CONC 35 g/dL (31-37); MEAN CORPUSCULAR VOLUME 89 fL (79-100); MONO # 0.7 x10^3/uL (0.0-1.1); MONO % 7 % (0-9); NEUT # 7.5 x10^3/uL (1.8-7.7); NEUT % 75 % (31-73); PLATELET COUNT 301 x10^3/uL (140-400); RED BLOOD COUNT 4.67 x10^6/uL (3.50-5.40); RED CELL DISTRIBUTION WIDTH 13.1 % (11.5-14.5)
[2018-09-11 19:13] LABS: PROTHROMBIN TIME PATIENT 13.4 SEC (11.7-14.0)
[2018-09-11 19:24] LABS: CALCIUM 9.6 mg/dL (8.5-10.1); CREATININE 0.7 mg/dL (0.6-1.0); GFR 81.4; MAGNESIUM 1.4 mg/dL (1.8-2.4); TOTAL BILIRUBIN 0.7 mg/dL (0.2-1.0); TOTAL PROTEIN 7.9 g/dL (6.4-8.2)
[2018-09-11 19:29] LABS: POTASSIUM 2.9 mmol/L (3.5-5.1)
[2018-09-11] MEDS ORDERED: LABETALOL 20 MG/4 ML DISP.SYRIN. IVP ONE (19:30)
[2018-09-11 19:32] LABS: CREATINE KINASE 64 U/L (26-192)
--- NOTE | 2018-09-11 19:37 | RAD ---
RS Compliance Statement: One or more of the following individualized dose reduction techniques were utilized for this examination: 1. Automated exposure control 2. Adjustment of the mA and/or kV according to patient size 3. Use of iterative reconstruction technique CT head without contrast 09/11/2018 7:12 PM INDICATION: Confusion, weakness COMPARISON: MRI brain August 10, 2018 TECHNIQUE: Multiple axial CT images of the head were obtained from skull base through the vertex without intravenous contrast. FINDINGS: Head: Ventricles, sulci and basal cisterns are within normal limits. Low-attenuation in the periventricular white matter is suggestive of chronic small vessel ischemic changes. There is no hydrocephalus. White-white matter differentiation is normal. There is no acute intracranial hemorrhage. There is no mass, mass effect or midline shift. Posterior fossa is normal in appearance. Visualized portions of the orbits are normal. Paranasal sinuses are well aerated. Mastoid air cells are well aerated. Scalp and calvaria are normal. IMPRESSION: No acute intracranial hemorrhage. Low-attenuation in the periventricular white matter is suggestive of chronic small vessel ischemic changes. Electronically signed by: Tayler Kovacs MD (09/11/2018 7:34 PM) [facility]
[2018-09-11] MEDS ORDERED: POTASSIUM CHLORIDE 20 MEQ TABLET.ER. PO ONE (19:45)
[2018-09-11] MEDS ORDERED: MAGNESIUM SULFATE 2GM 50 ML IV ONE (19:45)
[2018-09-11] MEDS ORDERED: ONDANSETRON PF 4 MG/2 ML VIAL. IV PRN (20:45)
[2018-09-11 22:30] VITALS: BP 168/97
[2018-09-12 00:26] LABS: BILIRUBIN,URINE NEGATIVE (NEG); CLARITY,URINE CLEAR; COLOR,URINE YELLOW; NITRITE,URINE NEGATIVE (NEG); PROTEIN,URINE NEGATIVE (NEG-TRACE); UROBILINOGEN,URINE 0.2 mg/dL (0.2 mg/dL)
[2018-09-12 00:36] LABS: BACTERIA,URINE 0 /HPF (0-FEW); RBC,URINE OCC /HPF (0-2); SQUAMOUS EPITHELIAL CELL,UR MOD /LPF; WBC,URINE 0 /HPF (0-4)
[2018-09-12 03:59] VITALS: BP 130/82
--- NOTE | 2018-09-12 06:20 | EKG ---
[facility] [address] [place] [address] Test Date: 2018-09-11 Test Time: 18:46:40 Pat Name: SABA DAUGHERTY Department: Room: Gender: F Network Security Officer: [id number] : 1940 Requested By: VERO ADLER Order Number: [id number] Reading MD: Measurements Intervals [place] Rate: 86 P: -90 AR: 118 QRS: 37 QRSD: 92 T: 11 QT: 386 QTc: 465 Interpretive Statements SINUS RHYTHM NON SPECIFIC T ABNORMALITY BORDERLINE ECG No previous ECG available for comparison
[2018-09-12 07:00] VITALS: BP 153/97
--- NOTE | 2018-09-12 07:33 | RAD ---
CHEST PA LATERAL History: Confusion. Comparison: Two-view chest, August 18, 2018. Findings: Changes of CABG. Atherosclerotic aortic arch. Cardiac size is normal. Pulmonary vasculature is normal. The lungs are clear. No pleural effusion or pneumothorax is seen. There is no acute bone abnormality. Right axillary surgical clips. IMPRESSION: No acute cardiopulmonary process. Electronically signed by: Mack Landers MD (09/12/2018 7:30 AM) [id number]
[2018-09-12] MEDS ORDERED: NITROGLYCERIN SUBLINGUAL 0.4 MG BOTTLE OF 25. SL PRN (08:15)
[2018-09-12 08:58] LABS: MAGNESIUM 1.7 mg/dL (1.8-2.4); POTASSIUM 3.5 mmol/L (3.5-5.1)
[2018-09-12] MEDS: CHLORTHALIDONE 25 MG TABLET. PO SCH (09:12)
[2018-09-12] MEDS: CALCIUM CARB/VIT D3 500/200 TABLET. PO SCH (09:13)
[2018-09-12] MEDS: MULTIVITAMIN with MINERAL TABLET. PO SCH (09:13)
[2018-09-12] MEDS: MEMANTINE 10 MG TABLET. PO SCH ×2 (09:13→20:36)
[2018-09-12] MEDS: ASPIRIN CHEWABLE 81 MG TABLET. PO SCH (09:13)
[2018-09-12] MEDS: PANTOPRAZOLE 40 MG TABLET.DR. PO SCH (09:13)
[2018-09-12] MEDS: EZETIMIBE 10 MG TABLET. PO SCH (09:13)
[2018-09-12] MEDS: LEVOTHYROXINE 100 MCG TABLET PO SCH (09:14)
[2018-09-12] MEDS: LOSARTAN POTASSIUM 50 MG TABLET. PO SCH (09:28)
--- NOTE | 2018-09-12 09:50 | HP ---
ADMIT DATE: 09/11/2018 CHIEF COMPLAINT AND HISTORY OF PRESENT ILLNESS: This 77-year-old white female is well known to me from followup in the office. The patient was confused on the day of admission, had lost her cell phone apparently and was, according to her, at least 3 miles away from home looking for it in a place where she had not been. Family was concerned and brought her to the Emergency Room where she was admitted with confusional state. She has recently had some dementia, but overall ____ diagnosed, has been started on meds for the same. PAST MEDICAL HISTORY: Remarkable for breast cancer, GERD, hypertension, hypothyroidism, pulmonary fibrosis, and obstructive sleep apnea. PAST SURGICAL HISTORY: She has had prior coronary artery bypass surgery, knee replacement, right mastectomy, toe surgery, cataract surgery, and cystocele repair. MEDICATIONS: Brought with the patient, listed on the computer, and have been addressed. ALLERGIES: SHE IS ALLERGIC TO ATORVASTATIN. SOCIAL HISTORY: She is , nonsmoker, and nondrinker. Does not use drugs. Has a very supportive family. FAMILY HISTORY: Noncontributory. REVIEW OF SYSTEMS: At this point is unremarkable other than her being upset about the events of yesterday as she does not understand why this all happened. PHYSICAL EXAMINATION: GENERAL: She is well-developed, well-nourished white female, in no acute distress. VITAL SIGNS: Stable. She is afebrile. HEAD, EYES, EARS, NOSE AND THROAT: Unremarkable. She does wear glasses. NECK: Supple without adenopathy or thyromegaly. CHEST: Clear to auscultation and percussion. HEART: Regular rate and rhythm without S3, S4 or murmur. ABDOMEN: Soft and nontender, without hepatosplenomegaly or masses. EXTREMITIES: Without cyanosis, clubbing, or edema. NEUROLOGIC: She is intact. CT head is negative. Laboratory review is likewise unremarkable as is chest x-ray on admission. She does admit that she has not been taking her thyroid recently because she believes it causes diarrhea. We will check the same and I am going to ask Neuro to see her. She is also fairly profoundly hypokalemic and hypomagnesemic on admission and we will need to recheck levels of the same. OSCAR CH MD DR: Gaudencio JOB#: [id number] / [id number]
[2018-09-12 11:00] VITALS: BP 155/105
--- NOTE | 2018-09-12 11:04 | NUR ---
SW following pt for dc planning. Chart reviewed and discussed with RN. Pt lives at home alone and admitted due to AMS. No dc recommendation noted at this time. Will continue to follow pending dc needs.
--- NOTE | 2018-09-12 12:15 | PDOC2 ---
NEUROLOGY CONSULT Date of Admission Date of Admission DATE: 09/12/18 TIME: 12:07 Reason for Consult Reason for Consult: Altered mental status Referring Physician Referring Physician: Dr. Gutierrez Source Source: Chart review, Patient History of Present Illness History of Present Illness The patient is a 77-year-old right-handed female who was confused yesterday. She had just resumed her thyroid medication. She had it in her head that a friend had taken her cell phone and was trying to return it, so she was driving around looking for the friends house. She heard dog barking and went home to find the cell phone on her bed. She interprets this to mean that the friend did deliver her cell phone. The patient has been diagnosed with dementia by Dr. Gutierrez and was placed on memantene. She denies any history of stroke, seizure, or head injury. She was found to have some electrolyte disturbances in the emergency department yesterday. She feels better today. Past Medical History Pulmonary: Other ( pulmonary fibrosis, sleep apnea) CENTRAL NERVOUS SYSTEM: Dementia GI: Constipation ( and diarrhea), GERD Heme/Onc: Cancer ( breast) Renal/: Other ( bladder prolapse) Endocrine: Hypothyroidism Dermatology: Psoriasis Past Surgical History Past Surgical History: CABG, Cataract Removal, Mastectomy, Other (Abdominal aortic aneurysm repair, coronary stent, right knee, right hammertoe) Family History Family History: CAD, DM Social History Social History , no alcohol or tobacco, lives on her own Current Medications Current Medications Current Medications Sodium Chloride 1,000 ml @ 1,000 mls/hr 1X ONCE IV Last administered on 09/11/18 20:34; Start 09/11/18 at 18:45; Stop 09/11/18 at 19:44; Status DC Labetalol HCl (Normodyne Iv Push) 10 mg 1X ONCE IVP Last administered on 09/11/18 20:34; Start 09/11/18 at 19:30; Stop 09/11/18 at 19:31; Status DC Magnesium Sulfate 50 ml @ 25 mls/hr 1X ONCE IV Last administered on 09/11/18 20:34; Start 09/11/18 at 19:45; Stop 09/11/18 at 21:44; Status DC Potassium Chloride (Klor-Con) 40 meq 1X ONCE PO Last administered on 09/11/18 20:34; Start 09/11/18 at 19:45; Stop 09/11/18 at 19:46; Status DC Ondansetron HCl (Zofran) 4 mg PRN Q8HRS PRN IV NAUSEA/VOMITING 1ST CHOICE; Start 09/11/18 at 20:45; Stop 09/12/18 at 20:44 Aspirin (Children'S Aspirin) 81 mg DAILY PO Last administered on 09/12/18 09:20; Start 09/12/18 at 09:00 Chlorthalidone (Thalitone) 25 mg DAILY PO Last administered on 09/12/18 09:20; Start 09/12/18 at 09:00 EZETIMIBE (Zetia) 10 mg DAILY PO Last administered on 09/12/18 09:20; Start 09/12/18 at 09:00 Memantine (Namenda) 10 mg BID PO Last administered on 09/12/18 09:20; Start 09/12/18 at 09:00 Metoprolol Succinate (Toprol Xl) 50 mg HS PO ; Start 09/12/18 at 21:00 Nitroglycerin (Nitrostat) 0.4 mg PRN Q5MIN PRN SL CHEST PAIN; Start 09/12/18 at 08:15 Calcium/Vitamin D (Oscal D 500mg/ 200uts) 1 tab DAILY PO Last administered on 09/12/18 09:20; Start 09/12/18 at 09:00 Levothyroxine Sodium (Synthroid) 200 mcg DAILY06 PO Last administered on 09/12/18 09:20; Start 09/12/18 at 09:00 Multivitamins (Thera M Plus) 1 tab DAILY PO Last administered on 09/12/18 09:20; Start 09/12/18 at 09:00 Pantoprazole Sodium (Protonix) 40 mg DAILYAC PO Last administered on 09/12/18 09:20; Start 09/12/18 at 08:30 Losartan Potassium (Cozaar) 50 mg DAILY PO Last administered on 09/12/18 09:28; Start 09/12/18 at 09:00 Active Scripts Active Diflucan (Fluconazole) 100 Mg Tablet 100 Mg PO Q3DAYS Doxycycline Hyclate 100 Mg Tablet 1 Tab PO BID 10 Days Reported Levothyroxine Sodium 200 Mcg Tablet 1 Tab PO DAILY Zetia (Ezetimibe) 10 Mg Tablet 1 Tab PO DAILY Omeprazole 20 Mg Capsule.dr 1 Cap PO DAILY Namenda (Memantine Hcl) 10 Mg Tablet 1 Tab PO BID NITROGLYCERIN SubLingual (Nitroglycerin) 0.4 Mg Tab.subl 0.4 Mg SL PRN Q5MIN PRN Metoprolol Succinate ( Xl ) (Metoprolol Succinate) 25 Mg Tab.er.24h 2 Tab PO HS Ronald-128 (Sodium Chloride) 15 Ml Drops 15 Ml OP DAILY Calcium + D3 Er Tablet (Calcium Carb & Cit/Vitamin D3) 1 Each Tablet.er 1 Each PO DAILY Centrum Silver Tablet (Multivits-Min/Fa/Lycopene/Lut) 1 Each Tablet 1 Each PO DAILY Aspirin 81 Mg Tab.chew 1 Tab PO DAILY Chlorthalidone (Chlorthalidone) 25 Mg Tablet 1 Tab PO DAILY Micardis (Telmisartan) 40 Mg Tablet 1 Tab PO DAILY Omeprazole 20 Mg Capsule.dr 1 Cap PO DAILY Allergies Allergies: Coded Allergies: atorvastatin (Verified Allergy, Intermediate, 12/25/16) pulmonary fibrosis ROS Review of System Negative for fever, chills, weight loss, shortness of breath, chest pain, indigestion, hematochezia, melena, and dysuria. Full 14-point review of systems is negative. Physical Exam Physical Examination General: Well-developed, well-nourished white female in no acute distress HEENT: Normocephalic and�atraumatic.�Temporal arteries�pulsatile and nontender. Neck: Supple without bruit, no meningismus� Musculoskeletal: Stability:�see neurologic. Gait exam:�see neurologic. Tone:�see neurologic.�Strength:�see neurologic.� Neurological: Mental Status:�intact, orientation, memory, attention span/concentration, language, fund of knowledge normal. Cranial Nerves:�Pupils equal and reactive to light, extraocular movements are�intact, visual dominguez are full to confrontation. Facial sensation is normal. There is no facial asymmetry. Vestibulo-ocular reflex is intact. Palate elevates and tongue protrudes in midline. All other cranial related problems are negative except as mentioned before.�Reflexes:�2+ and symmetric with flexor plantar responses. Motor:�5/5 strength with normal tone and bulk. Coordination:�Finger-nose finger and vguj-bm-lurk testing are normal. Rapid alternating movements and fine finger movements are intact. Gait:� arthritic. Sensory:�Normal pinprick, vibration, light touch, proprioception.� Vitals VITALS Vital Signs Date Time Temp Pulse Resp B/P (MAP) Pulse Ox O2 Delivery O2 Flow Rate FiO2 09/12/18 09:28 79 130/82 09/12/18 08:00 Room Air 09/12/18 07:00 98.5 18 97 98.5 Labs Labs Laboratory Tests Test 09/11/18 18:25 09/11/18 18:47 09/11/18 21:00 09/11/18 23:20 Glucose (Fingerstick) 135 mg/dL (70-99) White Blood Count 10.0 x10^3/uL (4.0-11.0) Red Blood Count 4.67 x10^6/uL (3.50-5.40) Hemoglobin 14.4 g/dL (12.0-15.5) Hematocrit 41.4 % (36.0-47.0) Mean Corpuscular Volume 89 fL (79-100) Mean Corpuscular Hemoglobin 31 pg (25-35) Mean Corpuscular Hemoglobin Concent 35 g/dL (31-37) Red Cell Distribution Width 13.1 % (11.5-14.5) Platelet Count 301 x10^3/uL (140-400) Neutrophils (%) (Auto) 75 % (31-73) Lymphocytes (%) (Auto) 16 % (24-48) Monocytes (%) (Auto) 7 % (0-9) Eosinophils (%) (Auto) 1 % (0-3) Basophils (%) (Auto) 0 % (0-3) Neutrophils # (Auto) 7.5 x10^3/uL (1.8-7.7) Lymphocytes # (Auto) 1.6 x10^3/uL (1.0-4.8) Monocytes # (Auto) 0.7 x10^3/uL (0.0-1.1) Eosinophils # (Auto) 0.1 x10^3/uL (0.0-0.7) Basophils # (Auto) 0.0 x10^3/uL (0.0-0.2) Prothrombin Time 13.4 SEC (11.7-14.0) Prothromb Time International Ratio 1.1 (0.8-1.1) Activated Partial Thromboplast Time 36 SEC (24-38) Sodium Level 135 mmol/L (136-145) Potassium Level 2.9 mmol/L (3.5-5.1) Chloride Level 95 mmol/L (98-107) Carbon Dioxide Level 28 mmol/L (21-32) Anion Gap 12 (6-14) Blood Urea Nitrogen 8 mg/dL (7-20) Creatinine 0.7 mg/dL (0.6-1.0) Estimated GFR (Cockcroft-Gault) 81.4 BUN/Creatinine Ratio 11 (6-20) Glucose Level 124 mg/dL (70-99) Lactic Acid Level 2.4 mmol/L (0.4-2.0) 1.3 mmol/L (0.4-2.0) Calcium Level 9.6 mg/dL (8.5-10.1) Magnesium Level 1.4 mg/dL (1.8-2.4) Total Bilirubin 0.7 mg/dL (0.2-1.0) Aspartate Amino Transf (AST/SGOT) 17 U/L (15-37) Alanine Aminotransferase (ALT/SGPT) 24 U/L (14-59) Alkaline Phosphatase 77 U/L (46-116) Ammonia < 10 mcmol/L (11-34) Creatine Kinase 64 U/L (26-192) Creatine Kinase MB (Mass) 1.1 ng/mL (0.0-3.6) Creatine Kinase MB Relative Index % (0-4) Troponin I Quantitative < 0.017 ng/mL (0.000-0.055) < 0.017 ng/mL (0.000-0.055) YR-Pys-V-Type Natriuretic Peptide 515 pg/mL (0-449) Total Protein 7.9 g/dL (6.4-8.2) Albumin 4.0 g/dL (3.4-5.0) Albumin/Globulin Ratio 1.0 (1.0-1.7) Urine Collection Type Unknown Urine Color Yellow Urine Clarity Clear Urine pH 7.0 Urine Specific [place] <=1.005 Urine Protein Negative mg/dL (NEG-TRACE) Urine Glucose (UA) Negative mg/dL (NEG) Urine Ketones (Stick) Negative mg/dL (NEG) Urine Blood Trace (NEG) Urine Nitrite Negative (NEG) Urine Bilirubin Negative (NEG) Urine Urobilinogen Dipstick 0.2 mg/dL (0.2 mg/dL) Urine Leukocyte Esterase Negative (NEG) Urine RBC Occ /HPF (0-2) Urine WBC 0 /HPF (0-4) Urine Squamous Epithelial Cells Mod /LPF Urine Bacteria 0 /HPF (0-FEW) Test 09/12/18 02:50 Potassium Level 3.5 mmol/L (3.5-5.1) Magnesium Level 1.7 mg/dL (1.8-2.4) Troponin I Quantitative < 0.017 ng/mL (0.000-0.055) Thyroid Stimulating Hormone (TSH) 8.813 uIU/mL (0.358-3.74) Laboratory Tests Test 09/11/18 18:25 09/11/18 18:47 09/11/18 21:00 09/11/18 23:20 Glucose (Fingerstick) 135 mg/dL (70-99) White Blood Count 10.0 x10^3/uL (4.0-11.0) Red Blood Count 4.67 x10^6/uL (3.50-5.40) Hemoglobin 14.4 g/dL (12.0-15.5) Hematocrit 41.4 % (36.0-47.0) Mean Corpuscular Volume 89 fL (79-100) Mean Corpuscular Hemoglobin 31 pg (25-35) Mean Corpuscular Hemoglobin Concent 35 g/dL (31-37) Red Cell Distribution Width 13.1 % (11.5-14.5) Platelet Count 301 x10^3/uL (140-400) Neutrophils (%) (Auto) 75 % (31-73) Lymphocytes (%) (Auto) 16 % (24-48) Monocytes (%) (Auto) 7 % (0-9) Eosinophils (%) (Auto) 1 % (0-3) Basophils (%) (Auto) 0 % (0-3) Neutrophils # (Auto) 7.5 x10^3/uL (1.8-7.7) Lymphocytes # (Auto) 1.6 x10^3/uL (1.0-4.8) Monocytes # (Auto) 0.7 x10^3/uL (0.0-1.1) Eosinophils # (Auto) 0.1 x10^3/uL (0.0-0.7) Basophils # (Auto) 0.0 x10^3/uL (0.0-0.2) Prothrombin Time 13.4 SEC (11.7-14.0) Prothromb Time International Ratio 1.1 (0.8-1.1) Activated Partial Thromboplast Time 36 SEC (24-38) Sodium Level 135 mmol/L (136-145) Potassium Level 2.9 mmol/L (3.5-5.1) Chloride Level 95 mmol/L (98-107) Carbon Dioxide Level 28 mmol/L (21-32) Anion Gap 12 (6-14) Blood Urea Nitrogen 8 mg/dL (7-20) Creatinine 0.7 mg/dL (0.6-1.0) Estimated GFR (Cockcroft-Gault) 81.4 BUN/Creatinine Ratio 11 (6-20) Glucose Level 124 mg/dL (70-99) Lactic Acid Level 2.4 mmol/L (0.4-2.0) 1.3 mmol/L (0.4-2.0) Calcium Level 9.6 mg/dL (8.5-10.1) Magnesium Level 1.4 mg/dL (1.8-2.4) Total Bilirubin 0.7 mg/dL (0.2-1.0) Aspartate Amino Transf (AST/SGOT) 17 U/L (15-37) Alanine Aminotransferase (ALT/SGPT) 24 U/L (14-59) Alkaline Phosphatase 77 U/L (46-116) Ammonia < 10 mcmol/L (11-34) Creatine Kinase 64 U/L (26-192) Creatine Kinase MB (Mass) 1.1 ng/mL (0.0-3.6) Creatine Kinase MB Relative Index % (0-4) Troponin I Quantitative < 0.017 ng/mL (0.000-0.055) < 0.017 ng/mL (0.000-0.055) SR-Jck-F-Type Natriuretic Peptide 515 pg/mL (0-449) Total Protein 7.9 g/dL (6.4-8.2) Albumin 4.0 g/dL (3.4-5.0) Albumin/Globulin Ratio 1.0 (1.0-1.7) Urine Collection Type Unknown Urine Color Yellow Urine Clarity Clear Urine pH 7.0 Urine Specific [place] <=1.005 Urine Protein Negative mg/dL (NEG-TRACE) Urine Glucose (UA) Negative mg/dL (NEG) Urine Ketones (Stick) Negative mg/dL (NEG) Urine Blood Trace (NEG) Urine Nitrite Negative (NEG) Urine Bilirubin Negative (NEG) Urine Urobilinogen Dipstick 0.2 mg/dL (0.2 mg/dL) Urine Leukocyte Esterase Negative (NEG) Urine RBC Occ /HPF (0-2) Urine WBC 0 /HPF (0-4) Urine Squamous Epithelial Cells Mod /LPF Urine Bacteria 0 /HPF (0-FEW) Test 09/12/18 02:50 Potassium Level 3.5 mmol/L (3.5-5.1) Magnesium Level 1.7 mg/dL (1.8-2.4) Troponin I Quantitative < 0.017 ng/mL (0.000-0.055) Thyroid Stimulating Hormone (TSH) 8.813 uIU/mL (0.358-3.74) Images Images CT head without contrast 09/11/2018 7:12 PM INDICATION: Confusion, weakness COMPARISON: MRI brain August 10, 2018 TECHNIQUE: Multiple axial CT images of the head were obtained from skull base through the vertex without intravenous contrast. FINDINGS: Head: Ventricles, sulci and basal cisterns are within normal limits. Low-attenuation in the periventricular white matter is suggestive of chronic small vessel ischemic changes. There is no hydrocephalus. White-white matter differentiation is normal. There is no acute intracranial hemorrhage. There is no mass, mass effect or midline shift. Posterior fossa is normal in appearance. Visualized portions of the orbits are normal. Paranasal sinuses are well aerated. Mastoid air cells are well aerated. Scalp and calvaria are normal. IMPRESSION: No acute intracranial hemorrhage. Low-attenuation in the periventricular white matter is suggestive of chronic small vessel ischemic changes. Assessment/Plan Assessment/Plan Impression: Altered mental status, the patient gives a lucid explanation for why she was wandering around, she actually has a normal bedside mental status examination. Mild electrolyte disturbances Diagnosed with dementia by her primary care physician. Recommendations: I ordered some additional lab studies for other reversible causes of dementia although I suspect Dr. Gutierrez already checked these. Okay for discharged tomorrow Consider neurological follow-up and 4-[address] Gutierrez desires. Thank you for letting me help the patient's care. MARIELA CREWS MD Sep 12, 2018 12:15
[2018-09-12 15:00] VITALS: BP 124/82
[2018-09-12 19:00] VITALS: BP 116/88
[2018-09-12] MEDS ORDERED: METOPROLOL SUCC 24HR ER 50 MG TAB.ER.24H. PO SCH (21:00)
[2018-09-12 23:00] VITALS: BP 122/69
[2018-09-13 03:00] VITALS: BP 123/70
[2018-09-13] MEDS: LEVOTHYROXINE 100 MCG TABLET PO SCH (05:31)
[2018-09-13 07:00] VITALS: BP 138/76
[2018-09-13] MEDS: MEMANTINE 10 MG TABLET. PO SCH (08:32)
[2018-09-13] MEDS: EZETIMIBE 10 MG TABLET. PO SCH (08:32)
[2018-09-13] MEDS: CALCIUM CARB/VIT D3 500/200 TABLET. PO SCH (08:32)
[2018-09-13] MEDS: CHLORTHALIDONE 25 MG TABLET. PO SCH (08:32)
[2018-09-13] MEDS: LOSARTAN POTASSIUM 50 MG TABLET. PO SCH (08:32)
[2018-09-13] MEDS: PANTOPRAZOLE 40 MG TABLET.DR. PO SCH (08:33)
[2018-09-13] MEDS: MULTIVITAMIN with MINERAL TABLET. PO SCH (08:33)
[2018-09-13] MEDS: ASPIRIN CHEWABLE 81 MG TABLET. PO SCH (08:33)
[2018-09-13 11:00] VITALS: BP 160/98
--- NOTE | 2018-09-13 12:16 | PDOC ---
PROGRESS NOTES Assessment Altered mental status, the patient gives a lucid explanation for why she was wandering around, she actually has a normal bedside mental status examination. Mild electrolyte disturbances Diagnosed with dementia by her primary care physician, I suspect more of a mild cognitive impairment. Laboratory studies positive only for elevated TSH. Plan Agree with discharge I encouraged the patient to pursue mental and physical exercise Consider neurological follow-up in 4-6 weeks if patient or Dr. Gutierrez desires. Subjective No complaints Objective Vital Signs Date Time Temp Pulse Resp B/P (MAP) Pulse Ox O2 Delivery O2 Flow Rate FiO2 09/13/18 11:00 98.4 78 17 160/98 (118) 98 Room Air 98.4 Intake and Output 09/13/18 07:00 Intake Total 360 ml Output Total 3 ml Balance 357 ml Intake Oral 360 ml Output Urine Total 3 ml # Voids 1 PHYSICAL EXAM Alert. Oriented to time, place and person. PERRL. EOMI. CN: no focal findings. Muscle tone: normal. Muscle strength: 5/5 DTR: 2+ Plantar reflex: flexor Gait: normal. Sensory exam: no abnormal findings. No cerebellar signs elicited. Review of Relevant I have reviewed the following items kiara (where applicable) has been applied. Labs Laboratory Tests Test 09/11/18 18:25 09/11/18 18:47 09/11/18 21:00 09/11/18 23:20 Glucose (Fingerstick) 135 mg/dL (70-99) White Blood Count 10.0 x10^3/uL (4.0-11.0) Red Blood Count 4.67 x10^6/uL (3.50-5.40) Hemoglobin 14.4 g/dL (12.0-15.5) Hematocrit 41.4 % (36.0-47.0) Mean Corpuscular Volume 89 fL (79-100) Mean Corpuscular Hemoglobin 31 pg (25-35) Mean Corpuscular Hemoglobin Concent 35 g/dL (31-37) Red Cell Distribution Width 13.1 % (11.5-14.5) Platelet Count 301 x10^3/uL (140-400) Neutrophils (%) (Auto) 75 % (31-73) Lymphocytes (%) (Auto) 16 % (24-48) Monocytes (%) (Auto) 7 % (0-9) Eosinophils (%) (Auto) 1 % (0-3) Basophils (%) (Auto) 0 % (0-3) Neutrophils # (Auto) 7.5 x10^3/uL (1.8-7.7) Lymphocytes # (Auto) 1.6 x10^3/uL (1.0-4.8) Monocytes # (Auto) 0.7 x10^3/uL (0.0-1.1) Eosinophils # (Auto) 0.1 x10^3/uL (0.0-0.7) Basophils # (Auto) 0.0 x10^3/uL (0.0-0.2) Prothrombin Time 13.4 SEC (11.7-14.0) Prothromb Time International Ratio 1.1 (0.8-1.1) Activated Partial Thromboplast Time 36 SEC (24-38) Sodium Level 135 mmol/L (136-145) Potassium Level 2.9 mmol/L (3.5-5.1) Chloride Level 95 mmol/L (98-107) Carbon Dioxide Level 28 mmol/L (21-32) Anion Gap 12 (6-14) Blood Urea Nitrogen 8 mg/dL (7-20) Creatinine 0.7 mg/dL (0.6-1.0) Estimated GFR (Cockcroft-Gault) 81.4 BUN/Creatinine Ratio 11 (6-20) Glucose Level 124 mg/dL (70-99) Lactic Acid Level 2.4 mmol/L (0.4-2.0) 1.3 mmol/L (0.4-2.0) Calcium Level 9.6 mg/dL (8.5-10.1) Magnesium Level 1.4 mg/dL (1.8-2.4) Total Bilirubin 0.7 mg/dL (0.2-1.0) Aspartate Amino Transf (AST/SGOT) 17 U/L (15-37) Alanine Aminotransferase (ALT/SGPT) 24 U/L (14-59) Alkaline Phosphatase 77 U/L (46-116) Ammonia < 10 mcmol/L (11-34) Creatine Kinase 64 U/L (26-192) Creatine Kinase MB (Mass) 1.1 ng/mL (0.0-3.6) Creatine Kinase MB Relative Index % (0-4) Troponin I Quantitative < 0.017 ng/mL (0.000-0.055) < 0.017 ng/mL (0.000-0.055) BX-Usj-F-Type Natriuretic Peptide 515 pg/mL (0-449) Total Protein 7.9 g/dL (6.4-8.2) Albumin 4.0 g/dL (3.4-5.0) Albumin/Globulin Ratio 1.0 (1.0-1.7) Urine Collection Type Unknown Urine Color Yellow Urine Clarity Clear Urine pH 7.0 Urine Specific [place] <=1.005 Urine Protein Negative mg/dL (NEG-TRACE) Urine Glucose (UA) Negative mg/dL (NEG) Urine Ketones (Stick) Negative mg/dL (NEG) Urine Blood Trace (NEG) Urine Nitrite Negative (NEG) Urine Bilirubin Negative (NEG) Urine Urobilinogen Dipstick 0.2 mg/dL (0.2 mg/dL) Urine Leukocyte Esterase Negative (NEG) Urine RBC Occ /HPF (0-2) Urine WBC 0 /HPF (0-4) Urine Squamous Epithelial Cells Mod /LPF Urine Bacteria 0 /HPF (0-FEW) Test 09/12/18 02:50 09/13/18 04:35 Potassium Level 3.5 mmol/L (3.5-5.1) Magnesium Level 1.7 mg/dL (1.8-2.4) Troponin I Quantitative < 0.017 ng/mL (0.000-0.055) Thyroid Stimulating Hormone (TSH) 8.813 uIU/mL (0.358-3.74) Erythrocyte Sedimentation Rate 15 (0-25) Vitamin B12 Level 418 pg/mL (247-911) Laboratory Tests Test 09/13/18 04:35 Erythrocyte Sedimentation Rate 15 (0-25) Vitamin B12 Level 418 pg/mL (247-911) Medications Current Medications Sodium Chloride 1,000 ml @ 1,000 mls/hr 1X ONCE IV Last administered on 09/11/18at 20:34; Start 09/11/18 at 18:45; Stop 09/11/18 at 19:44; Status DC Labetalol HCl (Normodyne Iv Push) 10 mg 1X ONCE IVP Last administered on 09/11/18at 20:34; Start 09/11/18 at 19:30; Stop 09/11/18 at 19:31; Status DC Magnesium Sulfate 50 ml @ 25 mls/hr 1X ONCE IV Last administered on 09/11/18 20:34; Start 09/11/18 at 19:45; Stop 09/11/18 at 21:44; Status DC Potassium Chloride (Klor-Con) 40 meq 1X ONCE PO Last administered on 09/11/18 20:34; Start 09/11/18 at 19:45; Stop 09/11/18 at 19:46; Status DC Ondansetron HCl (Zofran) 4 mg PRN Q8HRS PRN IV NAUSEA/VOMITING 1ST CHOICE; Start 09/11/18 at 20:45; Stop 09/12/18 at 20:44; Status DC Aspirin (Children'S Aspirin) 81 mg DAILY PO Last administered on 09/13/18 08:33; Start 09/12/18 at 09:00 Chlorthalidone (Thalitone) 25 mg DAILY PO Last administered on 09/13/18 08:33; Start 09/12/18 at 09:00 EZETIMIBE (Zetia) 10 mg DAILY PO Last administered on 09/13/18 08:33; Start 09/12/18 at 09:00 Memantine (Namenda) 10 mg BID PO Last administered on 09/13/18 08:33; Start 09/12/18 at 09:00 Metoprolol Succinate (Toprol Xl) 50 mg HS PO Last administered on 09/12/18 20:3 8; Start 09/12/18 at 21:00 Nitroglycerin (Nitrostat) 0.4 mg PRN Q5MIN PRN SL CHEST PAIN; Start 09/12/18 at 08:15 Calcium/Vitamin D (Oscal D 500mg/ 200uts) 1 tab DAILY PO Last administered on 09/13/18 08:33; Start 09/12/18 at 09:00 Levothyroxine Sodium (Synthroid) 200 mcg DAILY06 PO Last administered on 09/13/18 05:31; Start 09/12/18 at 09:00 Multivitamins (Thera M Plus) 1 tab DAILY PO Last administered on 09/13/18 08:33; Start 09/12/18 at 09:00 Pantoprazole Sodium (Protonix) 40 mg DAILYAC PO Last administered on 09/13/18 08:33; Start 09/12/18 at 08:30 Losartan Potassium (Cozaar) 50 mg DAILY PO Last administered on 09/13/18at 08:33; Start 09/12/18 at 09:00 Active Scripts Active Reported Levothyroxine Sodium 200 Mcg Tablet 1 Tab PO DAILY Zetia (Ezetimibe) 10 Mg Tablet 1 Tab PO DAILY Omeprazole 20 Mg Capsule.dr Smith Cap PO DAILY Namenda (Memantine Hcl) 10 Mg Tablet 1 Tab PO BID NITROGLYCERIN SubLingual (Nitroglycerin) 0.4 Mg Tab.subl 0.4 Mg SL PRN Q5MIN PRN Metoprolol Succinate ( Xl ) (Metoprolol Succinate) 25 Mg Tab.er.24h 2 Tab PO HS Ronald-128 (Sodium Chloride) 15 Ml Drops 15 Ml OP DAILY Calcium + D3 Er Tablet (Calcium Carb & Cit/Vitamin D3) 1 Each Tablet.er 1 Each PO DAILY Centrum Silver Tablet (Multivits-Min/Fa/Lycopene/Lut) 1 Each Tablet 1 Each PO DAILY Aspirin 81 Mg Tab.chew 1 Tab PO DAILY Chlorthalidone (Chlorthalidone) 25 Mg Tablet 1 Tab PO DAILY Micardis (Telmisartan) 40 Mg Tablet 1 Tab PO DAILY Omeprazole 20 Mg Capsule. 1 Cap PO DAILY Vitals/I & O Vital Sign - Last 24 Hours 09/12/18 09/12/18 09/12/18 09/12/18 15:00 19:00 20:00 20:38 Temp 97.9 97.9 Pulse 75 82 82 Resp 18 16 B/P (MAP) 124/82 (96) 116/88 (97) 116/88 Pulse Ox 99 96 O2 Delivery Room Air Room Air Room Air 09/12/18 09/13/18 09/13/18 09/13/18 23:00 03:00 07:00 08:00 Temp 98.7 97.9 97.9 98.7 97.9 97.9 Pulse 77 70 66 Resp 16 16 18 B/P (MAP) 122/69 (86) 123/70 (87) 138/76 (96) Pulse Ox 95 94 95 O2 Delivery Room Air Room Air Room Air Room Air 09/13/18 09/13/18 08:33 11:00 Temp 98.4 98.4 Pulse 66 78 Resp 17 B/P (MAP) 138/76 160/98 (118) Pulse Ox 98 O2 Delivery Room Air Intake and Output 09/12/18 09/12/18 09/13/18 15:00 23:00 07:00 Intake Total 360 ml Output Total 3 ml Balance 360 ml -3 ml MARIELA CREWS MD Sep 13, 2018 12:16
--- NOTE | 2018-09-13 14:27 | NUR ---
Pt discharged and escorted with family member to the main entrance by the RN. Faired well. Belongings in tow.
--- NOTE | 2018-09-13 16:27 | DS ---
DATE OF DISCHARGE: 09/13/2018 PRIMARY DIAGNOSIS: Acute encephalopathy. ADDITIONAL DIAGNOSES: 1. Mild cognitive impairment versus early dementia. 2. Atherosclerotic heart disease. 3. Hypokalemia. 4. Hypomagnesemia. 5. Hypothyroidism. CHIEF COMPLAINT AND HISTORY OF PRESENT ILLNESS: This 77-year-old white female admitted through the Emergency Room with a confusional episode. SUMMARY OF STAY: Workup was negative for etiology of the confusional episode including laboratory and imaging of the head and chest. She did seem to clear during the stay and was aware of what all she has done, although it made no sense. Neurology saw her, felt this was probably more related to some mild cognitive impairment versus what they would call dementia. She was back to her baseline, felt ready for discharge with no driving until we see her in the office next week. She will resume her thyroid, which she has been holding at home and will go home on 20 mEq of potassium daily as well as 400 mg of magnesium oxide b.i.d. and we will recheck electrolytes in a week than usual to her usual home medicines. DISPOSITION: The patient is discharged to home, regular diet, activity as tolerated, office next week. DISCHARGE MEDICATIONS: Listed on the med rec and have been addressed. OSCAR CH MD DR: CITLALI/sarah JOB#: [id number] / [id number]
== END 2018-09-13 15:17 | disposition home or self-care (01) | DRG 641 ==
LOC: ER 16:40 → 6 SOUTH 20:20
PROVIDERS: ADMIT Family Medicine; ATTEND Family Medicine
DX: E87.6 Hypokalemia (principal); G93.40 Encephalopathy, unspecified; F03.90 Unspecified dementia, unspecified severity, without behavioral disturbance, psychotic disturbance, mood disturbance, and anxiety; E83.42 Hypomagnesemia; E03.9 Hypothyroidism, unspecified; K21.9 Gastro-esophageal reflux disease without esophagitis; I10 Essential (primary) hypertension; J84.10 Pulmonary fibrosis, unspecified; G47.33 Obstructive sleep apnea (adult) (pediatric); Z96.659 Presence of unspecified artificial knee joint; L40.9 Psoriasis, unspecified; I25.10 Atherosclerotic heart disease of native coronary artery without angina pectoris; Z85.3 Personal history of malignant neoplasm of breast; Z95.5 Presence of coronary angioplasty implant and graft; Z95.1 Presence of aortocoronary bypass graft; Z90.11 Acquired absence of right breast and nipple; Z86.79 Personal history of other diseases of the circulatory system; Z83.3 Family history of diabetes mellitus; Z82.49 Family history of ischemic heart disease and other diseases of the circulatory system; Z88.8 Allergy status to other drugs, medicaments and biological substances
CPT/HCPCS: 36415; 70450; 71046; 80053; 81001; 82140; 82553; 82607; 82962; 83605; 83735; 83880; 84132; 84443; 84484; 85025; 85610; 85651; 85730; 93005; 96361; 96374; J3475; J3490; J7030; 99285-25; G0378

== ENCOUNTER 2018-09-26 12:57 | Inpatient (IN) | payer MEDICARE ==
[~2018-09-26] VITALS: Ht 170.2 cm; Wt 81.2 kg
[~2018-09-26 12:57] MED LIST changes: -EZET10TA18 PO; +EZET10TA20 PO
--- NOTE | 2018-09-26 13:51 | PHYS DOC ---
Past Medical History Past Medical History: Cancer, GERD, Hypertension, Hypothyroid, Other Additional Past Medical Histor: PULMONARY FIBROSIS,SLEEP APNEA, BREAST CANCER, CYSTOCELE, PROLASPED BLADDER Past Surgical History: Coronary Bypass Surgery, Knee Replacement, Other Additional Past Surgical Histo: R MASTECTOMY,TOE,CATARACTS, cystocele repair Alcohol Use: None Drug Use: None Adult General Chief Complaint Chief Complaint: OTHER COMPLAINTS HPI HPI Patient is a 77 year old female who presents to the emergency department for evaluation. She was hospitalized here about 2 weeks ago with an episode of acute confusion, and has been having some intermittent episodes where she has been doing well cognitively and then filling in with some confabulation. This has been chronic and somewhat stable for the patient. It is somewhat unusual that she is able to manage her daily affairs well, but then will tell some nonsensical stories about things that are going on around her house. The patient's grandson was with her today, and the patient appeared to have a brief panic attack, where she was weaving heavily. He felt her pulse and felt rapid although he did not record the rate. Thus she presents to the emergency department for evaluation. The patient does complain of some mild nausea, but is otherwise not having any symptoms. She denies any headache, vision changes, chest pain, shortness of breath, abdominal pain, vomiting, diarrhea, but she does admit to some dysuria. There are no alleviating or exacerbating factors to her symptoms otherwise. Review of Systems Review of Systems Constitutional: Denies fever or chills [] Eyes: Denies change in visual acuity, redness, or eye pain [] HENT: Denies nasal congestion or sore throat [] Respiratory: Denies cough or shortness of breath [] Cardiovascular: The patient denies any shortness of breath, chest pain, palpitations, or orthopnea [] GI: Denies abdominal pain, vomiting, bloody stools or diarrhea [] : Denies urinary frequency or hematuria [] Musculoskeletal: Denies back pain or joint pain [] Integument: Denies rash or skin lesions [] Neurologic: Denies headache, focal weakness or sensory changes [] Endocrine: Denies polyuria or polydipsia [] All other systems were reviewed and found to be within normal limits, except as documented in this note. Current Medications Current Medications Current Medications Medications (Trade) Dose Ordered Sig/Deepa Start Time Stop Time Status Last Admin Dose Admin Magnesium Sulfate 50 ml @ 25 mls/hr 1X ONCE 09/26/18 15:30 09/26/18 17:29 Potassium Chloride (Klor-Con) 40 meq 1X ONCE 09/26/18 15:15 09/26/18 15:16 DC Allergies Allergies Allergies Coded Allergies Type Severity Reaction Last Updated Verified atorvastatin Allergy Intermediate 12/25/16 Yes Physical Exam Physical Exam PHYSICAL EXAM: CONSTITUTIONAL: Well developed, well nourished HEAD: normocephalic, atraumatic EENT: PERRL, EOMI. Conjunctivae normal color, sclerae non-icteric; moist mucous membranes. NECK: Supple, non-tender; no meningismus. LUNGS: Lungs CTA, breathing even and unlabored. Normal air movement. HEART: Regular rate and rhythm, no murmur CHEST: No deformity; non-tender ABDOMEN: The abdomen is soft, and non-tender, no masses or bruits. EXTREM: Normal ROM; no deformity, no calf tenderness. Normal pulses palpable in all extremities. There is no pedal edema. SKIN: No rash; no diaphoresis NEURO: Alert; normal speech, mild cognitive impairment, the patient is oriented to person, place, and knows the year but not the month, knows the names of the people, her family in the room, does exhibit some mild intermittent confabulation; CN's grossly intact; strength grossly intact without focal deficit. BACK: No CVA TTP. Current Patient Data Vital Signs Vital Signs Date Time Temp Pulse Resp B/P (MAP) Pulse Ox O2 Delivery O2 Flow Rate FiO2 09/26/18 13:20 98.1 84 18 181/104 (129) 97 Room Air 98.1 Lab Values Laboratory Tests Test 09/26/18 13:33 09/26/18 14:00 White Blood Count 10.2 x10^3/uL (4.0-11.0) Red Blood Count 4.45 x10^6/uL (3.50-5.40) Hemoglobin 13.8 g/dL (12.0-15.5) Hematocrit 39.3 % (36.0-47.0) Mean Corpuscular Volume 88 fL (79-100) Mean Corpuscular Hemoglobin 31 pg (25-35) Mean Corpuscular Hemoglobin Concent 35 g/dL (31-37) Red Cell Distribution Width 13.3 % (11.5-14.5) Platelet Count 305 x10^3/uL (140-400) Neutrophils (%) (Auto) 77 % (31-73) H Lymphocytes (%) (Auto) 15 % (24-48) L Monocytes (%) (Auto) 7 % (0-9) Eosinophils (%) (Auto) 1 % (0-3) Basophils (%) (Auto) 0 % (0-3) Neutrophils # (Auto) 7.8 x10^3/uL (1.8-7.7) H Lymphocytes # (Auto) 1.5 x10^3/uL (1.0-4.8) Monocytes # (Auto) 0.7 x10^3/uL (0.0-1.1) Eosinophils # (Auto) 0.1 x10^3/uL (0.0-0.7) Basophils # (Auto) 0.0 x10^3/uL (0.0-0.2) Sodium Level 129 mmol/L (136-145) L Potassium Level 3.2 mmol/L (3.5-5.1) L Chloride Level 92 mmol/L (98-107) L Carbon Dioxide Level 25 mmol/L (21-32) Anion Gap 12 (6-14) Blood Urea Nitrogen 9 mg/dL (7-20) Creatinine 0.7 mg/dL (0.6-1.0) Estimated GFR (Cockcroft-Gault) 81.4 BUN/Creatinine Ratio 13 (6-20) Glucose Level 108 mg/dL (70-99) H Calcium Level 9.3 mg/dL (8.5-10.1) Magnesium Level 1.4 mg/dL (1.8-2.4) L Total Bilirubin 0.6 mg/dL (0.2-1.0) Aspartate Amino Transferase (AST) 17 U/L (15-37) Alanine Aminotransferase (ALT) 20 U/L (14-59) Alkaline Phosphatase 77 U/L (46-116) Troponin I Quantitative < 0.017 ng/mL (0.000-0.055) Total Protein 7.4 g/dL (6.4-8.2) Albumin 3.9 g/dL (3.4-5.0) Albumin/Globulin Ratio 1.1 (1.0-1.7) Thyroid Stimulating Hormone (TSH) 0.466 uIU/mL (0.358-3.74) Free Thyroxine 1.76 ng/dL (0.76-1.46) H Urine Collection Type Unknown Urine Color Yellow Urine Clarity Clear Urine pH 6.0 Urine Specific [place] 1.010 Urine Protein Negative mg/dL (NEG-TRACE) Urine Glucose (UA) Negative mg/dL (NEG) Urine Ketones (Stick) Negative mg/dL (NEG) Urine Blood Moderate (NEG) Urine Nitrite Negative (NEG) Urine Bilirubin Negative (NEG) Urine Urobilinogen Dipstick 0.2 mg/dL (0.2 mg/dL) Urine Leukocyte Esterase Small (NEG) Urine RBC 3-5 /HPF (0-2) Urine WBC 1-4 /HPF (0-4) Urine Squamous Epithelial Cells Mod /LPF Urine Bacteria 0 /HPF (0-FEW) Laboratory Tests 09/26/18 13:33 Laboratory Tests 09/26/18 13:33 EKG EKG [Normal sinus rhythm with a normal rate, normal axis, normal intervals, there are no acute ischemic ST/T changes. Q waves are present in lead III only.] Radiology/Procedures Radiology/Procedures [] Course & Med Decision Making Course & Med Decision Making Pertinent Labs and Imaging studies reviewed. (See chart for details) []4:00 PM: The patient's condition remains stable. I discussed case with the patient and her PCP. The patient would like to remain in the hospital for further observation and monitoring. Dragon Disclaimer Dragon Disclaimer This electronic medical record was generated, in whole or in part, using a voice recognition dictation system. Departure Departure Impression: Primary Impression: Altered mental status Additional Impressions: Hypokalemia Hypomagnesemia Disposition: ADMITTED INPATIENT Admitting Physician: Oscar Ch Condition: STABLE Referrals: OSCAR CH MD (PCP) Problem Qualifiers KAREN ALLEN MD Sep 26, 2018 13:51
[2018-09-26 14:10] LABS: BASO % 0 % (0-3); EOS # 0.1 x10^3/uL (0.0-0.7); EOS % 1 % (0-3); HEMATOCRIT 39.3 % (36.0-47.0); HEMOGLOBIN 13.8 g/dL (12.0-15.5); LYMPH # 1.5 x10^3/uL (1.0-4.8); LYMPH % 15 % (24-48); MEAN CORPUSCULAR HEMOGLOBIN 31 pg (25-35); MEAN CORPUSCULAR HGB CONC 35 g/dL (31-37); MEAN CORPUSCULAR VOLUME 88 fL (79-100); MONO # 0.7 x10^3/uL (0.0-1.1); MONO % 7 % (0-9); NEUT # 7.8 x10^3/uL (1.8-7.7); NEUT % 77 % (31-73); PLATELET COUNT 305 x10^3/uL (140-400); RED BLOOD COUNT 4.45 x10^6/uL (3.50-5.40); RED CELL DISTRIBUTION WIDTH 13.3 % (11.5-14.5); WHITE BLOOD COUNT 10.2 x10^3/uL (4.0-11.0)
[2018-09-26 14:16] LABS: BILIRUBIN,URINE NEGATIVE (NEG); CLARITY,URINE CLEAR; COLOR,URINE YELLOW; NITRITE,URINE NEGATIVE (NEG); PROTEIN,URINE NEGATIVE (NEG-TRACE); UROBILINOGEN,URINE 0.2 mg/dL (0.2 mg/dL)
[2018-09-26 14:24] LABS: BACTERIA,URINE 0 /HPF (0-FEW); SQUAMOUS EPITHELIAL CELL,UR MOD /LPF
[2018-09-26 14:33] LABS: CALCIUM 9.3 mg/dL (8.5-10.1); CREATININE 0.7 mg/dL (0.6-1.0); GFR 81.4; POTASSIUM 3.2 mmol/L (3.5-5.1)
[2018-09-26 14:38] LABS: ALBUMIN 3.9 g/dL (3.4-5.0); ALBUMIN/GLOBULIN RATIO 1.1 (1.0-1.7); MAGNESIUM 1.4 mg/dL (1.8-2.4); TOTAL BILIRUBIN 0.6 mg/dL (0.2-1.0); TOTAL PROTEIN 7.4 g/dL (6.4-8.2)
[2018-09-26 14:46] LABS: FREE T4 1.76 ng/dL (0.76-1.46); THYROID STIM HORMONE (TSH) 0.466 uIU/mL (0.358-3.74)
--- NOTE | 2018-09-26 15:07 | EKG ---
[facility] [address] [place] [address] Test Date: 2018-09-26 Test Time: 14:02:44 Pat Name: SABA DAUGHERTY Department: Room: Gender: F [employer] Director: : 1940 Requested By: KAREN ALLEN Order Number: [id number] Reading MD: Nakul Palencia MD Measurements Intervals [place] Rate: 75 P: 37 ND: 156 QRS: 34 QRSD: 98 T: 15 QT: 398 QTc: 447 Interpretive Statements SINUS RHYTHM Electronically Signed On 09-28-2018 15:41:28 CDT by Nakul Palencia MD
[2018-09-26] MEDS ORDERED: POTASSIUM CHLORIDE 20 MEQ TABLET.ER. PO ONE (15:15)
[2018-09-26] MEDS ORDERED: MAGNESIUM SULFATE 2GM 50 ML IV ONE (15:30)
[2018-09-26 19:45] VITALS: BP 156/78
[2018-09-26] MEDS ORDERED: NITROGLYCERIN SUBLINGUAL 0.4 MG BOTTLE OF 25. SL PRN (21:15)
[2018-09-26] MEDS: ALPRAZolam 0.25 MG TABLET PO PRN (22:28)
[2018-09-26 23:02] VITALS: BP 117/69
[2018-09-27 03:56] VITALS: BP 113/67
[2018-09-27] MEDS: LEVOTHYROXINE 100 MCG TABLET PO SCH (06:00)
[2018-09-27 07:00] VITALS: BP 147/84
[2018-09-27] MEDS: PANTOPRAZOLE 40 MG TABLET.DR. PO SCH (08:46)
[2018-09-27] MEDS: MULTIVITAMIN with MINERAL TABLET. PO SCH (08:46)
[2018-09-27] MEDS: EZETIMIBE 10 MG TABLET. PO SCH (08:46)
[2018-09-27] MEDS: LOSARTAN POTASSIUM 50 MG TABLET. PO SCH (08:47)
[2018-09-27] MEDS: CHLORTHALIDONE 25 MG TABLET. PO SCH (08:47)
[2018-09-27] MEDS: CALCIUM CARB/VIT D3 500/200 TABLET. PO SCH (08:47)
[2018-09-27] MEDS: ASPIRIN CHEWABLE 81 MG TABLET. PO SCH (08:47)
[2018-09-27] MEDS: SODIUM CHLORIDE 5% OPHTH SOLUTION 15ML BOTTLE. OU SCH (08:48)
[2018-09-27] MEDS ORDERED: MEMANTINE 10 MG TABLET. PO SCH (09:00)
--- NOTE | 2018-09-27 09:28 | HP ---
ADMIT DATE: CHIEF COMPLAINT AND HISTORY OF PRESENT ILLNESS: This 77-year-old white female brought to the Emergency Room because of weakness on the day of admission by her grandson who is visiting. He states she was initially pale and then flushed and when he felt her pulse, she seemed to be very tachycardic. She was better by the time she got to the Emergency Room. The patient has had ongoing confabulation of events with the family since the last recent hospitalization, which is new and not sure exactly what is going on unnecessary unless this is dementia or medication related and the most recent medication was added was memantine and this will be held at this point, although I can find no evidence that it causes such a thing. PAST MEDICAL HISTORY: Remarkable for breast cancer, GERD, hypertension, hypothyroidism. PAST SURGICAL HISTORY: She has had a prior cystocele and prolapsed bladder repair, coronary artery bypass surgery, knee replacement, toe surgery, cataracts, right mastectomy. MEDICATIONS: Meds brought with the patient, listed on the computer, have been addressed. ALLERGIES: SHE IS ALLERGIC TO ATORVASTATIN. SOCIAL HISTORY: She is , nonsmoker, nondrinker, does not use drugs. Lives alone and has a very supportive family. FAMILY HISTORY: Noncontributory. REVIEW OF SYSTEMS: Remarkable primarily for her rambling about cones on the highway and the yancy that fix those up, etc. She is not easily redirected back and history is extremely poor and most of it obtained through granddaughter and grandson who are present. PHYSICAL EXAMINATION: GENERAL: She is a well-developed, well-nourished white female, in no acute distress. VITAL SIGNS: Stable. She is afebrile. HEAD, EYES, EARS, NOSE AND THROAT: Remarkable for glasses. NECK: Supple, without lymphadenopathy or thyromegaly. CHEST: Clear to auscultation and percussion. HEART: Regular rate and rhythm without S3, S4 or murmur. ABDOMEN: Soft, nontender, without hepatosplenomegaly or mass. EXTREMITIES: Without cyanosis, clubbing, or edema. NEUROLOGIC: She is intact. LABORATORY DATA: CBC on admission is essentially unremarkable. Potassium was low at . Magnesium low at 1.4 and sodium low at 129. TSH, which was 8 during the last hospitalization is 0.466. Urinalysis shows no evidence of infection. IMPRESSION: 1. Ongoing intermittent confusion with confabulation of uncertain etiology, but probably dementia related. 2. Hypokalemia. 3. Hypomagnesemia. 4. Hyponatremia. 5. Weakness. PLAN: Electrolytes will be replaced. Neurology will be asked to see the patient once again and the patient will be monitored, managed and treated appropriately. OSCAR CH MD DR: CITLALI/sarah JOB#: [id number] / [id number]
[2018-09-27 11:00] VITALS: BP 101/65
[2018-09-27 11:11] LABS: CALCIUM 9.3 mg/dL (8.5-10.1); CREATININE 0.7 mg/dL (0.6-1.0); GFR 81.4; MAGNESIUM 1.5 mg/dL (1.8-2.4); POTASSIUM 3.4 mmol/L (3.5-5.1)
[2018-09-27 15:05] VITALS: BP 135/84
--- NOTE | 2018-09-27 16:22 | PDOC2 ---
NEUROLOGY CONSULT Date of Admission Date of Admission DATE: 09/27/18 TIME: 16:12 Reason for Consult Reason for Consult: Altered mental status Referring Physician Referring Physician: Dr. Gutierrez Source Source: Caregiver (grandchildren), Chart review, Patient History of Present Illness History of Present Illness The patient is a 77-year-old right-handed female whom I met during her hospitalization 16 days ago. She had just resumed her thyroid medication, got it into her head that a friend had taken her cell phone and was wandering around trying to find it. She ended up knocking on a stranger's door. MRI of the brain and laboratory studies for reversible causes of dementia were negative. Dr. Gutierrez started the patient on memantine. She did have some electrolyte disturbances. Yesterday the patient�s grandson was visiting. The patient was upset that her blood pressure was high. She was pale, and then became before. She had a rapid pulse. Grandson brought the patient to the emergency department. The patient feels back to normal now. Past Medical History Cardiovascular: Other (pulmonary fibrosis, sleep apnea) CENTRAL NERVOUS SYSTEM: Dementia (more likely mild cognitive impairment or early frontal dementia) GI: Constipation (and diarrhea), GERD Heme/Onc: Cancer (breast) Renal/: Other (bladder prolapse) Endocrine: Hypothyroidism Dermatology: Psoriasis Past Surgical History Past Surgical History: CABG, Cataract Removal, Mastectomy, Other (Abdominal aortic aneurysm repair, coronary stent, right knee, right hammertoe) Family History Family History: CAD, DM Social History Social History , no alcohol or tobacco, lives on her own, does own cooking, cleaning, bill-paying Current Medications Current Medications Current Medications Magnesium Sulfate 50 ml @ 25 mls/hr 1X ONCE IV Last administered on 09/26/18at 16:32; Start 09/26/18 at 15:30; Stop 09/26/18 at 17:29; Status DC Potassium Chloride (Klor-Con) 40 meq 1X ONCE PO Last administered on 09/26/18at 16:32; Start 09/26/18 at 15:15; Stop 09/26/18 at 15:16; Status DC Aspirin (Children'S Aspirin) 81 mg DAILY PO Last administered on 09/27/18at 08:48; Start 09/27/18 at 09:00 Chlorthalidone (Thalitone) 25 mg DAILY PO Last administered on 09/27/18at 08:48; Start 09/27/18 at 09:00 EZETIMIBE (Zetia) 10 mg DAILY PO Last administered on 09/27/18 08:48; Start 09/27/18 at 09:00 Memantine (Namenda) 10 mg BID PO ; Start 09/27/18 at 09:00 Metoprolol Succinate (Toprol Xl) 50 mg HS PO ; Start 09/27/18 at 21:00 Nitroglycerin (Nitrostat) 0.4 mg PRN Q5MIN PRN SL CHEST PAIN; Start 09/26/18 at 21:15 Sodium Chloride (Ronald-5) 1 drop DAILY OU Last administered on 09/27/18 08:48; Start 09/27/18 at 09:00 Calcium/Vitamin D (Oscal D 500mg/ 200uts) 1 tab DAILY PO Last administered on 09/27/18 08:48; Start 09/27/18 at 09:00 Levothyroxine Sodium (Synthroid) 200 mcg DAILY06 PO Last administered on 09/27/18 06:15; Start 09/27/18 at 06:00 Multivitamins (Thera M Plus) 1 tab DAILY PO Last administered on 09/27/18 08:48; Start 09/27/18 at 09:00 Pantoprazole Sodium (Protonix) 40 mg DAILYAC PO Last administered on 09/27/18 08:48; Start 09/27/18 at 07:30 Losartan Potassium (Cozaar) 50 mg DAILY PO Last administered on 09/27/18 08:48; Start 09/27/18 at 09:00 Alprazolam (Xanax) 0.25 mg PRN TID PRN PO ANXIETY / AGITATION Last administered on 09/26/18 22:29; Start 09/26/18 at 21:15 Active Scripts Active Reported Levothyroxine Sodium 200 Mcg Tablet 1 Tab PO DAILY Zetia (Ezetimibe) 10 Mg Tablet 1 Tab PO DAILY Omeprazole 20 Mg Capsule.dr 1 Cap PO DAILY Namenda (Memantine Hcl) 10 Mg Tablet 1 Tab PO BID NITROGLYCERIN SubLingual (Nitroglycerin) 0.4 Mg Tab.subl 0.4 Mg SL PRN Q5MIN PRN Metoprolol Succinate ( Xl ) (Metoprolol Succinate) 25 Mg Tab.er.24h 2 Tab PO HS Ronald-128 (Sodium Chloride) 15 Ml Drops 15 Ml OP DAILY Calcium + D3 Er Tablet (Calcium Carb & Cit/Vitamin D3) 1 Each Tablet.er 1 Each PO DAILY Centrum Silver Tablet (Multivits-Min/Fa/Lycopene/Lut) 1 Each Tablet 1 Each PO DAILY Aspirin 81 Mg Tab.chew 1 Tab PO DAILY Chlorthalidone (Chlorthalidone) 25 Mg Tablet 1 Tab PO DAILY Micardis (Telmisartan) 40 Mg Tablet 1 Tab PO DAILY Omeprazole 20 Mg Capsule.dr 1 Cap PO DAILY Allergies Allergies: Coded Allergies: atorvastatin (Verified Allergy, Intermediate, 12/25/16) pulmonary fibrosis ROS Review of System Negative for fever, chills, weight loss, shortness of breath, chest pain, indigestion, hematochezia, melena, and dysuria. Full 14-point review of systems is negative. Physical Exam Physical Examination General: Well-developed, well-nourished white female in no acute distress HEENT: Normocephalic and�atraumatic.�Temporal arteries�pulsatile and nontender. Neck: Supple without bruit, no meningismus� Musculoskeletal: Stability:�see neurologic. Gait exam:�see neurologic. Tone:�see neurologic.�Strength:�see neurologic.� Neurological: Mental Status:�intact, orientation, memory, attention span/concentration, language, fund of knowledge normal, knows date, location, answers questions in d etail. Cranial Nerves:�Pupils equal and reactive to light, extraocular movements are�intact, visual dominguez are full to confrontation. Facial sensation is normal. There is no facial asymmetry. Vestibulo-ocular reflex is intact. Palate elevates and tongue protrudes in midline. All other cranial related problems are negative except as mentioned before.�Reflexes:�2+ and symmetric with flexor plantar responses. Motor:�5/5 strength with normal tone and bulk. Coordination:�Finger- nose finger and vzzz-ji-[id number] testing are normal. Rapid alternating movements and fine finger movements are intact. Gait:� arthritic. Sensory:�Normal pinprick, vibration, light touch, proprioception.� Vitals VITALS Vital Signs Date Time Temp Pulse Resp B/P (MAP) Pulse Ox O2 Delivery O2 Flow Rate FiO2 09/27/18 15:05 97.9 97 16 135/84 (101) 97 Room Air 97.9 Labs Labs Laboratory Tests Test 09/26/18 13:33 09/26/18 14:00 09/27/18 10:15 White Blood Count 10.2 x10^3/uL (4.0-11.0) Red Blood Count 4.45 x10^6/uL (3.50-5.40) Hemoglobin 13.8 g/dL (12.0-15.5) Hematocrit 39.3 % (36.0-47.0) Mean Corpuscular Volume 88 fL (79-100) Mean Corpuscular Hemoglobin 31 pg (25-35) Mean Corpuscular Hemoglobin Concent 35 g/dL (31-37) Red Cell Distribution Width 13.3 % (11.5-14.5) Platelet Count 305 x10^3/uL (140-400) Neutrophils (%) (Auto) 77 % (31-73) Lymphocytes (%) (Auto) 15 % (24-48) Monocytes (%) (Auto) 7 % (0-9) Eosinophils (%) (Auto) 1 % (0-3) Basophils (%) (Auto) 0 % (0-3) Neutrophils # (Auto) 7.8 x10^3/uL (1.8-7.7) Lymphocytes # (Auto) 1.5 x10^3/uL (1.0-4.8) Monocytes # (Auto) 0.7 x10^3/uL (0.0-1.1) Eosinophils # (Auto) 0.1 x10^3/uL (0.0-0.7) Basophils # (Auto) 0.0 x10^3/uL (0.0-0.2) Sodium Level 129 mmol/L (136-145) 134 mmol/L (136-145) Potassium Level 3.2 mmol/L (3.5-5.1) 3.4 mmol/L (3.5-5.1) Chloride Level 92 mmol/L (98-107) 95 mmol/L (98-107) Carbon Dioxide Level 25 mmol/L (21-32) 25 mmol/L (21-32) Anion Gap 12 (6-14) 14 (6-14) Blood Urea Nitrogen 9 mg/dL (7-20) 9 mg/dL (7-20) Creatinine 0.7 mg/dL (0.6-1.0) 0.7 mg/dL (0.6-1.0) Estimated GFR (Cockcroft-Gault) 81.4 81.4 BUN/Creatinine Ratio 13 (6-20) Glucose Level 108 mg/dL (70-99) 122 mg/dL (70-99) Calcium Level 9.3 mg/dL (8.5-10.1) 9.3 mg/dL (8.5-10.1) Magnesium Level 1.4 mg/dL (1.8-2.4) 1.5 mg/dL (1.8-2.4) Total Bilirubin 0.6 mg/dL (0.2-1.0) Aspartate Amino Transf (AST/SGOT) 17 U/L (15-37) Alanine Aminotransferase (ALT/SGPT) 20 U/L (14-59) Alkaline Phosphatase 77 U/L (46-116) Troponin I Quantitative < 0.017 ng/mL (0.000-0.055) Total Protein 7.4 g/dL (6.4-8.2) Albumin 3.9 g/dL (3.4-5.0) Albumin/Globulin Ratio 1.1 (1.0-1.7) Thyroid Stimulating Hormone (TSH) 0.466 uIU/mL (0.358-3.74) Free Thyroxine 1.76 ng/dL (0.76-1.46) Urine Collection Type Unknown Urine Color Yellow Urine Clarity Clear Urine pH 6.0 Urine Specific [place] 1.010 Urine Protein Negative mg/dL (NEG-TRACE) Urine Glucose (UA) Negative mg/dL (NEG) Urine Ketones (Stick) Negative mg/dL (NEG) Urine Blood Moderate (NEG) Urine Nitrite Negative (NEG) Urine Bilirubin Negative (NEG) Urine Urobilinogen Dipstick 0.2 mg/dL (0.2 mg/dL) Urine Leukocyte Esterase Small (NEG) Urine RBC 3-5 /HPF (0-2) Urine WBC 1-4 /HPF (0-4) Urine Squamous Epithelial Cells Mod /LPF Urine Bacteria 0 /HPF (0-FEW) Laboratory Tests Test 09/27/18 10:15 Sodium Level 134 mmol/L (136-145) Potassium Level 3.4 mmol/L (3.5-5.1) Chloride Level 95 mmol/L (98-107) Carbon Dioxide Level 25 mmol/L (21-32) Anion Gap 14 (6-14) Blood Urea Nitrogen 9 mg/dL (7-20) Creatinine 0.7 mg/dL (0.6-1.0) Estimated GFR (Cockcroft-Gault) 81.4 Glucose Level 122 mg/dL (70-99) Calcium Level 9.3 mg/dL (8.5-10.1) Magnesium Level 1.5 mg/dL (1.8-2.4) Assessment/Plan Assessment/Plan Impression Altered mental status, patient, grandchildren, and I agree that she is quite lucid and takes care of all of her issues at home, but seems to have some lapses of judgment, including searching for her cell phone and a strange neighborhood. I would term this mild cognitive impairment or early frontotemporal dementia. MRI and lab work negative last time. She may have had a panic attack yesterday, and I think the risks outweigh the benefits of starting her on, for instance alprazolam or escitalopram. I would consider these if she has more frequent episodes. Recommendations: I discussed with patient and her grandchildren. I do not see a need for camilla evgeny here, and indeed it may be making things worse. The patient does not need 24/7 care, but the family needs to keep close attention I would like to see her in follow-up in 4-6 weeks Thank you for letting me help with the patient�s care. MARIELA CREWS MD Sep 27, 2018 16:22
[2018-09-27 19:20] VITALS: BP 136/77
[2018-09-27] MEDS ORDERED: POTASSIUM CHLORIDE 20 MEQ TABLET.ER. PO ONE (20:30)
[2018-09-27] MEDS: MAGNESIUM CHLORIDE ER 64 MG TABLET.ER PO SCH (20:46)
[2018-09-27] MEDS: ALPRAZolam 0.25 MG TABLET PO PRN (20:47)
[2018-09-27] MEDS ORDERED: METOPROLOL SUCC 24HR ER 25 MG TAB.ER.24H. PO SCH (21:00)
[2018-09-27 23:39] VITALS: BP 124/63
[2018-09-28 03:18] VITALS: BP 94/56
[2018-09-28] MEDS: LEVOTHYROXINE 100 MCG TABLET PO SCH (05:37)
[2018-09-28 07:29] VITALS: BP 111/67
[2018-09-28 07:52] LABS: CALCIUM 9.5 mg/dL (8.5-10.1); CREATININE 0.7 mg/dL (0.6-1.0); GFR 81.4; POTASSIUM 3.9 mmol/L (3.5-5.1)
--- NOTE | 2018-09-28 07:55 | PDOC ---
GENERAL General: vss and afebrile. awake and alert and sitting in chair. no confusion currently. chest clear, heart regular, abdomen benign, and neuro non focal. neuro consult appreciated. lytes from this am pending. possible dc later today with outpatient evaluation at [facility] as outpatient. VITAL SIGNS/I&O Vital Signs/I&O: Vital Signs Date Time Temp Pulse Resp B/P (MAP) Pulse Ox O2 Delivery O2 Flow Rate FiO2 09/28/18 07:29 97.6 67 18 111/67 (82) 97 Room Air 97.6 I & O 09/27/18 09/27/18 09/28/18 14:59 22:59 06:59 Intake Total 200 ml 640 ml 240 ml Balance 200 ml 640 ml 240 ml ALLERGIES Allergies: Allergies Coded Allergies Type Severity Reaction Last Updated Verified atorvastatin Allergy Intermediate 12/25/16 Yes MEDS Medications: Current Medications Medications (Trade) Dose Ordered Sig/Deepa Route PRN Reason Start Time Stop Time Status Last Admin Dose Admin Aspirin (Children'S Aspirin) 81 mg DAILY PO 09/27/18 09:00 09/27/18 08:48 Chlorthalidone (Thalitone) 25 mg DAILY PO 09/27/18 09:00 09/27/18 08:48 EZETIMIBE (Zetia) 10 mg DAILY PO 09/27/18 09:00 09/27/18 08:48 Metoprolol Succinate (Toprol Xl) 50 mg HS PO 09/27/18 21:00 09/27/18 20:47 Sodium Chloride (Ronald-5) 1 drop DAILY OU 09/27/18 09:00 09/27/18 08:48 Calcium/Vitamin D (Oscal D 500mg/ 200uts) 1 tab DAILY PO 09/27/18 09:00 09/27/18 08:48 Multivitamins (Thera M Plus) 1 tab DAILY PO 09/27/18 09:00 09/27/18 08:48 Losartan Potassium (Cozaar) 50 mg DAILY PO 09/27/18 09:00 09/27/18 08:48 Potassium Chloride (Klor-Con) 20 meq 1X ONCE PO 09/27/18 20:30 09/27/18 20:31 DC 09/27/18 20:47 Magnesium Chloride (Mag Delay) 64 mg DAILY PO 09/27/18 21:00 09/27/18 20:47 LAB Lab: Laboratory Tests Test 09/27/18 10:15 Sodium Level 134 mmol/L (136-145) L Potassium Level 3.4 mmol/L (3.5-5.1) L Chloride Level 95 mmol/L (98-107) L Carbon Dioxide Level 25 mmol/L (21-32) Anion Gap 14 (6-14) Blood Urea Nitrogen 9 mg/dL (7-20) Creatinine 0.7 mg/dL (0.6-1.0) Estimated GFR (Cockcroft-Gault) 81.4 Glucose Level 122 mg/dL (70-99) H Calcium Level 9.3 mg/dL (8.5-10.1) Magnesium Level 1.5 mg/dL (1.8-2.4) L Laboratory Tests 09/27/18 10:15 OSCAR CH MD Sep 28, 2018 07:55
[2018-09-28] MEDS: EZETIMIBE 10 MG TABLET. PO SCH (08:43)
[2018-09-28] MEDS: SODIUM CHLORIDE 5% OPHTH SOLUTION 15ML BOTTLE. OU SCH (08:43)
[2018-09-28] MEDS: PANTOPRAZOLE 40 MG TABLET.DR. PO SCH (08:44)
[2018-09-28] MEDS: CHLORTHALIDONE 25 MG TABLET. PO SCH (08:44)
[2018-09-28] MEDS: MULTIVITAMIN with MINERAL TABLET. PO SCH (08:44)
[2018-09-28] MEDS: LOSARTAN POTASSIUM 50 MG TABLET. PO SCH (08:44)
[2018-09-28] MEDS: CALCIUM CARB/VIT D3 500/200 TABLET. PO SCH (08:44)
[2018-09-28] MEDS: MAGNESIUM CHLORIDE ER 64 MG TABLET.ER PO SCH (08:45)
[2018-09-28] MEDS: ASPIRIN CHEWABLE 81 MG TABLET. PO SCH (08:45)
--- NOTE | 2018-09-28 08:54 | NUR ---
SW following pt for dc planning. Chart reviewed. Pt lives at home with family. No dc sw needs noted at this time. Will continue to follow pending dc needs.
--- NOTE | 2018-09-28 11:44 | PDOC ---
PROGRESS NOTES Assessment Mild cognitive impairment or early frontotemporal dementia. MRI and lab work negative last time. Possible panic attack 09/26, risks outweigh the benefits of starting her on, for instance alprazolam or escitalopram. I would consider these if she has more frequent episodes. Plan Okay for discharge I would like to see her in follow-up in 4-6 weeks Subjective No complaints, no confusion, granddaughter agrees Objective Vital Signs Date Time Temp Pulse Resp B/P (MAP) Pulse Ox O2 Delivery O2 Flow Rate FiO2 09/28/18 08:45 67 111/67 09/28/18 07:29 97.6 18 97 Room Air 97.6 Intake and Output 09/28/18 07:00 Intake Total 1080 ml Balance 1080 ml Intake Oral 1080 ml # Voids 6 PHYSICAL EXAM Alert. Oriented to time, place and person. PERRL. EOMI. CN: no focal findings. Muscle tone: normal. Muscle strength: 5/5 DTR: 2+ Plantar reflex: flexor Gait: arthritic. Sensory exam: no abnormal findings. No cerebellar signs elicited. Review of Relevant I have reviewed the following items kiara (where applicable) has been applied. Labs Laboratory Tests Test 09/26/18 13:33 09/26/18 14:00 09/27/18 10:15 09/28/18 07:00 White Blood Count 10.2 x10^3/uL (4.0-11.0) Red Blood Count 4.45 x10^6/uL (3.50-5.40) Hemoglobin 13.8 g/dL (12.0-15.5) Hematocrit 39.3 % (36.0-47.0) Mean Corpuscular Volume 88 fL (79-100) Mean Corpuscular Hemoglobin 31 pg (25-35) Mean Corpuscular Hemoglobin Concent 35 g/dL (31-37) Red Cell Distribution Width 13.3 % (11.5-14.5) Platelet Count 305 x10^3/uL (140-400) Neutrophils (%) (Auto) 77 % (31-73) Lymphocytes (%) (Auto) 15 % (24-48) Monocytes (%) (Auto) 7 % (0-9) Eosinophils (%) (Auto) 1 % (0-3) Basophils (%) (Auto) 0 % (0-3) Neutrophils # (Auto) 7.8 x10^3/uL (1.8-7.7) Lymphocytes # (Auto) 1.5 x10^3/uL (1.0-4.8) Monocytes # (Auto) 0.7 x10^3/uL (0.0-1.1) Eosinophils # (Auto) 0.1 x10^3/uL (0.0-0.7) Basophils # (Auto) 0.0 x10^3/uL (0.0-0.2) Sodium Level 129 mmol/L (136-145) 134 mmol/L (136-145) 135 mmol/L (136-145) Potassium Level 3.2 mmol/L (3.5-5.1) 3.4 mmol/L (3.5-5.1) 3.9 mmol/L (3.5-5.1) Chloride Level 92 mmol/L (98-107) 95 mmol/L (98-107) 96 mmol/L (98-107) Carbon Dioxide Level 25 mmol/L (21-32) 25 mmol/L (21-32) 29 mmol/L (21-32) Anion Gap 12 (6-14) 14 (6-14) 10 (6-14) Blood Urea Nitrogen 9 mg/dL (7-20) 9 mg/dL (7-20) 11 mg/dL (7-20) Creatinine 0.7 mg/dL (0.6-1.0) 0.7 mg/dL (0.6-1.0) 0.7 mg/dL (0.6-1.0) Estimated GFR (Cockcroft-Gault) 81.4 81.4 81.4 BUN/Creatinine Ratio 13 (6-20) Glucose Level 108 mg/dL (70-99) 122 mg/dL (70-99) 94 mg/dL (70-99) Calcium Level 9.3 mg/dL (8.5-10.1) 9.3 mg/dL (8.5-10.1) 9.5 mg/dL (8.5-10.1) Magnesium Level 1.4 mg/dL (1.8-2.4) 1.5 mg/dL (1.8-2.4) Total Bilirubin 0.6 mg/dL (0.2-1.0) Aspartate Amino Transf (AST/SGOT) 17 U/L (15-37) Alanine Aminotransferase (ALT/SGPT) 20 U/L (14-59) Alkaline Phosphatase 77 U/L (46-116) Troponin I Quantitative < 0.017 ng/mL (0.000-0.055) Total Protein 7.4 g/dL (6.4-8.2) Albumin 3.9 g/dL (3.4-5.0) Albumin/Globulin Ratio 1.1 (1.0-1.7) Thyroid Stimulating Hormone (TSH) 0.466 uIU/mL (0.358-3.74) Free Thyroxine 1.76 ng/dL (0.76-1.46) Urine Collection Type Unknown Urine Color Yellow Urine Clarity Clear Urine pH 6.0 Urine Specific [place] 1.010 Urine Protein Negative mg/dL (NEG-TRACE) Urine Glucose (UA) Negative mg/dL (NEG) Urine Ketones (Stick) Negative mg/dL (NEG) Urine Blood Moderate (NEG) Urine Nitrite Negative (NEG) Urine Bilirubin Negative (NEG) Urine Urobilinogen Dipstick 0.2 mg/dL (0.2 mg/dL) Urine Leukocyte Esterase Small (NEG) Urine RBC 3-5 /HPF (0-2) Urine WBC 1-4 /HPF (0-4) Urine Squamous Epithelial Cells Mod /LPF Urine Bacteria 0 /HPF (0-FEW) Laboratory Tests Test 09/28/18 07:00 Sodium Level 135 mmol/L (136-145) Potassium Level 3.9 mmol/L (3.5-5.1) Chloride Level 96 mmol/L (98-107) Carbon Dioxide Level 29 mmol/L (21-32) Anion Gap 10 (6-14) Blood Urea Nitrogen 11 mg/dL (7-20) Creatinine 0.7 mg/dL (0.6-1.0) Estimated GFR (Cockcroft-Gault) 81.4 Glucose Level 94 mg/dL (70-99) Calcium Level 9.5 mg/dL (8.5-10.1) Microbiology 09/26/18 Urine Culture - Final, Complete 09/26/18 Urine Culture Result 1 (STACI) - Final, Complete Medications Current Medications Magnesium Sulfate 50 ml @ 25 mls/hr 1X ONCE IV Last administered on 09/26/18at 16:32; Start 09/26/18 at 15:30; Stop 09/26/18 at 17:29; Status DC Potassium Chloride (Klor-Con) 40 meq 1X ONCE PO Last administered on 09/26/18at 16:32; Start 09/26/18 at 15:15; Stop 09/26/18 at 15:16; Status DC Aspirin (Children'S Aspirin) 81 mg DAILY PO Last administered on 09/28/18 08:45; Start 09/27/18 at 09:00 Chlorthalidone (Thalitone) 25 mg DAILY PO Last administered on 09/28/18 08:45; Start 09/27/18 at 09:00 EZETIMIBE (Zetia) 10 mg DAILY PO Last administered on 09/28/18 08:45; Start 09/27/18 at 09:00 Memantine (Namenda) 10 mg BID PO ; Start 09/27/18 at 09:00; Stop 09/27/18 at 17:40; Status DC Metoprolol Succinate (Toprol Xl) 50 mg HS PO Last administered on 09/27/18at 20:47; Start 09/27/18 at 21:00 Nitroglycerin (Nitrostat) 0.4 mg PRN Q5MIN PRN SL CHEST PAIN; Start 09/26/18 at 21:15 Sodium Chloride (Ronald-5) 1 drop DAILY OU Last administered on 09/28/18 08:45; Start 09/27/18 at 09:00 Calcium/Vitamin D (Oscal D 500mg/ 200uts) 1 tab DAILY PO Last administered on 09/28/18 08:45; Start 09/27/18 at 09:00 Levothyroxine Sodium (Synthroid) 200 mcg DAILY06 PO Last administered on 09/28/18 05:39; Start 09/27/18 at 06:00 Multivitamins (Thera M Plus) 1 tab DAILY PO Last administered on 09/28/18 08:45; Start 09/27/18 at 09:00 Pantoprazole Sodium (Protonix) 40 mg DAILYAC PO Last administered on 09/28/18 08:45; Start 09/27/18 at 07:30 Losartan Potassium (Cozaar) 50 mg DAILY PO Last administered on 09/28/18 08: 45; Start 09/27/18 at 09:00 Alprazolam (Xanax) 0.25 mg PRN TID PRN PO ANXIETY / AGITATION Last administered on 09/27/18at 20:47; Start 09/26/18 at 21:15 Potassium Chloride (Klor-Con) 20 meq 1X ONCE PO Last administered on 09/27/18at 20:47; Start 09/27/18 at 20:30; Stop 09/27/18 at 20:31; Status DC Magnesium Chloride (Mag Delay) 64 mg DAILY PO Last administered on 09/28/18at 08:45; Start 09/27/18 at 21:00 Active Scripts Active Reported Levothyroxine Sodium 200 Mcg Tablet 1 Tab PO DAILY Zetia (Ezetimibe) 10 Mg Tablet 1 Tab PO DAILY Omeprazole 20 Mg Capsule. 1 Cap PO DAILY NITROGLYCERIN SubLingual (Nitroglycerin) 0.4 Mg Tab.subl 0.4 Mg SL PRN Q5MIN PRN Metoprolol Succinate ( Xl ) (Metoprolol Succinate) 25 Mg Tab.er.24h 2 Tab PO HS Ronald-128 (Sodium Chloride) 15 Ml Drops 15 Ml OP DAILY Calcium + D3 Er Tablet (Calcium Carb & Cit/Vitamin D3) 1 Each Tablet.er 1 Each PO DAILY Centrum Silver Tablet (Multivits-Min/Fa/Lycopene/Lut) 1 Each Tablet 1 Each PO DAILY Aspirin 81 Mg Tab.chew 1 Tab PO DAILY Chlorthalidone (Chlorthalidone) 25 Mg Tablet 1 Tab PO DAILY Micardis (Telmisartan) 40 Mg Tablet 1 Tab PO DAILY Omeprazole 20 Mg Capsule. 1 Cap PO DAILY Vitals/I & O Vital Sign - Last 24 Hours 09/27/18 09/27/18 09/27/18 09/27/18 15:05 19:20 20:00 20:47 Temp 97.9 98.3 97.9 98.3 Pulse 97 84 84 Resp 16 16 B/P (MAP) 135/84 (101) 136/77 (96) 136/77 Pulse Ox 97 98 O2 Delivery Room Air Room Air Room Air 09/27/18 09/28/18 09/28/18 09/28/18 23:39 03:18 07:29 08:45 Temp 97.6 97.4 97.6 97.6 97.4 97.6 Pulse 81 68 67 67 Resp 16 16 18 B/P (MAP) 124/63 (83) 94/56 (69) 111/67 (82) 111/67 Pulse Ox 95 95 97 O2 Delivery Room Air Room Air Room Air Intake and Output 09/27/18 09/27/18 09/28/18 15:00 23:00 07:00 Intake Total 200 ml 640 ml 240 ml Balance 200 ml 640 ml 240 ml MARIELA CREWS MD Sep 28, 2018 11:44
[2018-09-28 11:45] VITALS: BP 110/68
--- NOTE | 2018-09-28 11:45 | NUR ---
Discharge instructions given to patient regarding home medications and stopping Memantine. Patient informed about following up with Dr. Gutierrez and neurology. Education given over hypokalemia and hypomagnesium. Patient verbalized understanding.
[2018-09-28] MEDS ORDERED: LEVO750T31 PO (20:32)
== END 2018-09-28 11:45 | disposition home or self-care (01) | DRG 56 ==
LOC: ER 12:57 → OBSVTOIN 16:20 → 6 SOUTH 16:20
PROVIDERS: ADMIT Family Medicine; ATTEND Family Medicine
DX: G31.09 Other frontotemporal neurocognitive disorder (principal); G93.41 Metabolic encephalopathy; E87.1 Hypo-osmolality and hyponatremia; F41.0 Panic disorder [episodic paroxysmal anxiety]; E87.6 Hypokalemia; E03.9 Hypothyroidism, unspecified; E83.42 Hypomagnesemia; G47.30 Sleep apnea, unspecified; I10 Essential (primary) hypertension; M20.41 Other hammer toe(s) (acquired), right foot; J84.10 Pulmonary fibrosis, unspecified; L40.9 Psoriasis, unspecified; K21.9 Gastro-esophageal reflux disease without esophagitis; Z82.49 Family history of ischemic heart disease and other diseases of the circulatory system; Z85.3 Personal history of malignant neoplasm of breast; Z86.79 Personal history of other diseases of the circulatory system; Z90.11 Acquired absence of right breast and nipple; Z95.1 Presence of aortocoronary bypass graft; Z95.5 Presence of coronary angioplasty implant and graft; Z96.659 Presence of unspecified artificial knee joint; Z83.3 Family history of diabetes mellitus; Z88.8 Allergy status to other drugs, medicaments and biological substances
CPT/HCPCS: 36415; 80048; 80053; 81001; 83735; 84439; 84443; 84484; 85025; 87086; 93005; 96365; J3475; 99285-25; G0378

== ENCOUNTER 2018-09-28 18:51 | Emergency (ER) | payer MEDICARE ==
[~2018-09-28] VITALS: Ht 170.2 cm; Wt 81.6 kg
[~2018-09-28 18:51] MED LIST changes: +EZET10TA18 PO; -EZET10TA20 PO
[2018-09-28] MEDS ORDERED: ACETAMINOPHEN 500 MG TABLET PO ONE (19:15)
--- NOTE | 2018-09-28 19:32 | PHYS DOC ---
Past Medical History Past Medical History: Cancer, GERD, Hypertension, Hypothyroid, Other Additional Past Medical Histor: PULMONARY FIBROSIS,SLEEP APNEA, BREAST CANCER, CYSTOCELE, PROLASPED BLADDER Past Surgical History: Coronary Bypass Surgery, Knee Replacement, Other Additional Past Surgical Histo: R MASTECTOMY,TOE,CATARACTS, cystocele repair Alcohol Use: None Drug Use: None Adult General Chief Complaint Chief Complaint: FEVER HPI HPI Patient is a 77 year old F P/W FEELING HOT JUST GOT D/C FROM [facility] GOT HOME SISTER DROPPED HER OFF AND GOT HER SITUATED PT STATES SHE BEGAN TO FEEL HOT. DID NOT TAKET EMPERATURE JUST CALLED SISTER TO BRING HER BACK TO HOSPITAL SHE IS WORRIED SHE MIGHT HAVE A UTI OR A YEAST INFECTION BECAUSE IT WAS "BURNING DOWN THERE" WHEN SHE WAS TRYING TO PEE AT HOME TODAY. NO CP NO SOB NO VOMITING NO ABDO PAIN NO BACK PAIN Review of Systems Review of Systems Constitutional: Eyes: Denies change in visual acuity, redness, or eye pain [] HENT: Denies nasal congestion or sore throat [] Respiratory: Denies cough or shortness of breath [] Cardiovascular: No additional information not addressed in HPI [] GI: Denies abdominal pain, nausea, vomiting, bloody stools or diarrhea [] : Musculoskeletal: Denies back pain or joint pain [] Integument: All other systems were reviewed and found to be within normal limits, except as documented in this note. Current Medications Current Medications Current Medications Medications (Trade) Dose Ordered Sig/Deepa Start Time Stop Time Status Last Admin Dose Admin Acetaminophen (Tylenol) 1,000 mg 1X ONCE 09/28/18 19:15 09/28/18 19:16 DC Levofloxacin (Levaquin) 750 mg 1X ONCE 09/28/18 20:45 09/28/18 20:46 DC 09/28/18 20:50 750 MG Magnesium Chloride (Mag Delay) 64 mg 1X ONCE 09/28/18 21:00 09/28/18 21:01 DC 09/28/18 20:50 64 MG Magnesium Sulfate/ Dextrose 100 ml @ 100 mls/hr 1X ONCE 09/28/18 20:15 09/28/18 20:42 DC Allergies Allergies Allergies Coded Allergies Type Severity Reaction Last Updated Verified atorvastatin Allergy Intermediate 12/25/16 Yes Physical Exam Physical Exam Constitutional: Well developed, well nourished, no acute distress, non-toxic appearance. [] HENT: Normocephalic, atraumatic, bilateral external ears normal, oropharynx moist, no oral exudates, nose normal. [] Eyes: PERRLA, EOMI, conjunctiva normal, no discharge. [] Neck: Normal range of motion, no tenderness, supple, no stridor. [] Cardiovascular:Heart rate regular rhythm, no murmur [] Lungs & Thorax: Bilateral breath sounds clear to auscultation [] Abdomen: Bowel sounds normal, soft, no tenderness, no masses, no pulsatile masses. [] Skin: Warm, dry, no erythema, no rash. [] Back: No tenderness, no CVA tenderness. [] Extremities: No tenderness, no cyanosis, no clubbing, ROM intact, no edema. [] Neurologic: Alert and oriented X 3, normal motor function, normal sensory function, no focal deficits noted. [] Psychologic: Affect normal, judgement normal, mood normal. [] Current Patient Data Vital Signs Vital Signs Date Time Temp Pulse Resp B/P (MAP) Pulse Ox O2 Delivery O2 Flow Rate FiO2 09/28/18 19:00 98.2 98 18 146/84 (104) 95 Room Air 98.2 Lab Values Laboratory Tests Test 09/28/18 19:20 09/28/18 19:45 White Blood Count 9.2 x10^3/uL (4.0-11.0) Red Blood Count 4.59 x10^6/uL (3.50-5.40) Hemoglobin 13.9 g/dL (12.0-15.5) Hematocrit 40.7 % (36.0-47.0) Mean Corpuscular Volume 89 fL (79-100) Mean Corpuscular Hemoglobin 30 pg (25-35) Mean Corpuscular Hemoglobin Concent 34 g/dL (31-37) Red Cell Distribution Width 13.4 % (11.5-14.5) Platelet Count 311 x10^3/uL (140-400) Neutrophils (%) (Auto) 66 % (31-73) Lymphocytes (%) (Auto) 22 % (24-48) L Monocytes (%) (Auto) 9 % (0-9) Eosinophils (%) (Auto) 2 % (0-3) Basophils (%) (Auto) 1 % (0-3) Neutrophils # (Auto) 6.1 x10^3/uL (1.8-7.7) Lymphocytes # (Auto) 2.1 x10^3/uL (1.0-4.8) Monocytes # (Auto) 0.8 x10^3/uL (0.0-1.1) Eosinophils # (Auto) 0.2 x10^3/uL (0.0-0.7) Basophils # (Auto) 0.1 x10^3/uL (0.0-0.2) Sodium Level 134 mmol/L (136-145) L Potassium Level 3.5 mmol/L (3.5-5.1) Chloride Level 96 mmol/L (98-107) L Carbon Dioxide Level 27 mmol/L (21-32) Anion Gap 11 (6-14) Blood Urea Nitrogen 17 mg/dL (7-20) Creatinine 0.7 mg/dL (0.6-1.0) Estimated GFR (Cockcroft-Gault) 81.4 BUN/Creatinine Ratio 24 (6-20) H Glucose Level 104 mg/dL (70-99) H Calcium Level 9.7 mg/dL (8.5-10.1) Magnesium Level 1.3 mg/dL (1.8-2.4) L Total Bilirubin 0.5 mg/dL (0.2-1.0) Aspartate Amino Transferase (AST) 16 U/L (15-37) Alanine Aminotransferase (ALT) 22 U/L (14-59) Alkaline Phosphatase 86 U/L (46-116) Total Protein 7.2 g/dL (6.4-8.2) Albumin 4.1 g/dL (3.4-5.0) Albumin/Globulin Ratio 1.3 (1.0-1.7) Urine Collection Type U cath Urine Color Yellow Urine Clarity Clear Urine pH 6.0 Urine Specific [place] 1.020 Urine Protein Negative mg/dL (NEG-TRACE) Urine Glucose (UA) Negative mg/dL (NEG) Urine Ketones (Stick) Negative mg/dL (NEG) Urine Blood Small (NEG) Urine Nitrite Negative (NEG) Urine Bilirubin Negative (NEG) Urine Urobilinogen Dipstick 0.2 mg/dL (0.2 mg/dL) Urine Leukocyte Esterase Negative (NEG) Urine RBC 6-10 /HPF (0-2) Urine WBC 1-4 /HPF (0-4) Urine Squamous Epithelial Cells Few /LPF Urine Bacteria 0 /HPF (0-FEW) Urine Hyaline Casts Moderate /HPF Urine Granular Casts Occasional /HPF Urine Mucus Mod /LPF Laboratory Tests 09/28/18 19:20 Laboratory Tests 09/28/18 19:20 EKG EKG [] Radiology/Procedures Radiology/Procedures [] Impressions: cxr my read probable atelectasis left base final read pending Course & Med Decision Making Course & Med Decision Making Pertinent Labs and Imaging studies reviewed. (See chart for details) []77 YOF MMP RECENT ADMIT FOR AMS POSSIBLE SEIZURE ACTIVITY? NOW P/W SUBJECTIVE FEVER FELT HOT NOT WARM TO TOUCH HERE TEMPERATURE IS NORMAL IN ER GET STRAIGHT CATH AND RECHECK WBC PT APPEARS WELL DOES NOT APPEAR TO ACTUALLY HAVE A FEVER HERE. final plan the u/a is likely negative however patient is symptomatic so can do levaquin while waiting for culture. i asked pt to f/u with pmd for culture results early next week maybe she can stop abx if culture negative. return precautions discussed she is well appearing. noted low mag, repleted in ed. has been issue for her in the past Dragon Disclaimer Dragon Disclaimer This electronic medical record was generated, in whole or in part, using a voice recognition dictation system. Departure Departure Impression: Primary Impression: Dysuria Disposition: 01 HOME, SELF-CARE Condition: STABLE Referrals: OSCAR CH MD (PCP) Scripts Levofloxacin (LEVAQUIN) 750 Mg Tablet 1 TAB PO DAILY, #5 TAB Prov: WENDY BOWEN MD 09/28/18 WENDY BOWEN MD Sep 28, 2018 19:32
[2018-09-28 19:36] LABS: BASO # 0.1 x10^3/uL (0.0-0.2); BASO % 1 % (0-3); EOS # 0.2 x10^3/uL (0.0-0.7); EOS % 2 % (0-3); HEMATOCRIT 40.7 % (36.0-47.0); HEMOGLOBIN 13.9 g/dL (12.0-15.5); LYMPH # 2.1 x10^3/uL (1.0-4.8); LYMPH % 22 % (24-48); MEAN CORPUSCULAR HEMOGLOBIN 30 pg (25-35); MEAN CORPUSCULAR HGB CONC 34 g/dL (31-37); MEAN CORPUSCULAR VOLUME 89 fL (79-100); MONO # 0.8 x10^3/uL (0.0-1.1); MONO % 9 % (0-9); NEUT # 6.1 x10^3/uL (1.8-7.7); NEUT % 66 % (31-73); PLATELET COUNT 311 x10^3/uL (140-400); RED BLOOD COUNT 4.59 x10^6/uL (3.50-5.40); RED CELL DISTRIBUTION WIDTH 13.4 % (11.5-14.5); WHITE BLOOD COUNT 9.2 x10^3/uL (4.0-11.0)
[2018-09-28 20:00] LABS: CALCIUM 9.7 mg/dL (8.5-10.1); CREATININE 0.7 mg/dL (0.6-1.0); GFR 81.4; POTASSIUM 3.5 mmol/L (3.5-5.1)
[2018-09-28 20:04] LABS: BILIRUBIN,URINE NEGATIVE (NEG); CLARITY,URINE CLEAR; COLOR,URINE YELLOW; NITRITE,URINE NEGATIVE (NEG); PROTEIN,URINE NEGATIVE (NEG-TRACE); UROBILINOGEN,URINE 0.2 mg/dL (0.2 mg/dL)
[2018-09-28 20:06] LABS: ALBUMIN 4.1 g/dL (3.4-5.0); ALBUMIN/GLOBULIN RATIO 1.3 (1.0-1.7); TOTAL BILIRUBIN 0.5 mg/dL (0.2-1.0); TOTAL PROTEIN 7.2 g/dL (6.4-8.2)
[2018-09-28 20:13] LABS: HYALINE CASTS, URINE MODERATE /HPF
[2018-09-28 20:14] LABS: GRANULAR CASTS,URINE OCCASIONAL /HPF
[2018-09-28] MEDS ORDERED: MAGNESIUM SULFATE 1GM 100 ML IV ONE (20:15)
[2018-09-28 20:16] LABS: BACTERIA,URINE 0 /HPF (0-FEW); SQUAMOUS EPITHELIAL CELL,UR FEW /LPF
[2018-09-28] MEDS ORDERED: LEVO750T31 PO (20:32)
[2018-09-28 20:37] VITALS: BP 119/70
[2018-09-28] MEDS ORDERED: MAGNESIUM CHLORIDE ER 64 MG TABLET.ER PO ONE (21:00)
--- NOTE | 2018-09-28 21:18 | RAD ---
Exam: Chest one view INDICATION: Fever TECHNIQUE: Frontal view of the chest Comparisons: 09/11/2018 FINDINGS: Sternotomy wires and surgical clips overlying the left heart border again noted. The cardiomediastinal silhouette and pulmonary vessels are within normal limits. The lung and pleural spaces are clear. IMPRESSION: No acute cardiopulmonary process. Electronically signed by: Rashard Acuna MD (09/28/2018 9:16 PM) [facility]
== END 2018-09-28 21:05 | disposition home or self-care (01) ==
LOC: ER 18:51
DX: R30.0 Dysuria (principal); K21.9 Gastro-esophageal reflux disease without esophagitis; E03.9 Hypothyroidism, unspecified; I10 Essential (primary) hypertension; G47.30 Sleep apnea, unspecified; Z95.5 Presence of coronary angioplasty implant and graft; Z96.659 Presence of unspecified artificial knee joint; Z90.11 Acquired absence of right breast and nipple; Z88.8 Allergy status to other drugs, medicaments and biological substances
CPT/HCPCS: 36415; 71045; 80053; 81001; 83735; 85025; 99285-25

== ENCOUNTER 2019-07-14 19:08 | Emergency (ER) | payer MEDICARE ==
[~2019-07-14] VITALS: Ht 170.2 cm; Wt 93.6 kg
[~2019-07-14 19:08] MED LIST changes: -EZET10TA18 PO; +EZET10TA20 PO; +LEVO750T31 PO; -OMEP20CA10 PO; +OMEP20CA16 PO; +SIMV40TA18 PO; -SIMV40TA3 PO
[2019-07-14 19:36] LABS: BASO # 0.1 x10^3/uL (0.0-0.2); BASO % 1 % (0-3); EOS # 0.3 x10^3/uL (0.0-0.7); EOS % 4 % (0-3); HEMATOCRIT 40.9 % (36.0-47.0); HEMOGLOBIN 14.1 g/dL (12.0-15.5); LYMPH # 2.3 x10^3/uL (1.0-4.8); LYMPH % 24 % (24-48); MEAN CORPUSCULAR HEMOGLOBIN 30 pg (25-35); MEAN CORPUSCULAR HGB CONC 34 g/dL (31-37); MEAN CORPUSCULAR VOLUME 87 fL (79-100); MONO # 0.7 x10^3/uL (0.0-1.1); MONO % 7 % (0-9); NEUT # 6.3 x10^3/uL (1.8-7.7); NEUT % 65 % (31-73); PLATELET COUNT 249 x10^3/uL (140-400); RED BLOOD COUNT 4.73 x10^6/uL (3.50-5.40); RED CELL DISTRIBUTION WIDTH 14.4 % (11.5-14.5); WHITE BLOOD COUNT 9.7 x10^3/uL (4.0-11.0)
[2019-07-14 19:47] LABS: CALCIUM 8.8 mg/dL (8.5-10.1); CREATININE 0.9 mg/dL (0.6-1.0); GFR 60.7; POTASSIUM 3.1 mmol/L (3.5-5.1)
[2019-07-14 19:52] LABS: ALBUMIN 3.8 g/dL (3.4-5.0); TOTAL BILIRUBIN 0.4 mg/dL (0.2-1.0); TOTAL PROTEIN 7.7 g/dL (6.4-8.2)
[2019-07-14] MEDS ORDERED: ONDANSETRON PF 4 MG/2 ML VIAL. ONE (20:14)
[2019-07-14] MEDS: cloNIDine HCL 0.1 MG TABLET PO ONE ×2 (20:30→20:39)
[2019-07-14] MEDS ORDERED: ONDANSETRON PF 4 MG/2 ML VIAL. IVP ONE (20:30)
--- NOTE | 2019-07-14 20:30 | PHYS DOC ---
Past Medical History Past Medical History: Cancer, GERD, Hypertension, Hypothyroid, Other Additional Past Medical Histor: PULMONARY FIBROSIS,SLEEP APNEA, BREAST CANCER, CYSTOCELE, PROLASPED BLADDER Past Surgical History: Coronary Bypass Surgery, Knee Replacement, Other Additional Past Surgical Histo: R MASTECTOMY,TOE,CATARACTS, cystocele repair Smoking Status: Never Smoker Alcohol Use: None Drug Use: None General Adult EDM: Chief Complaint: CHEST PAIN HPI: HPI: Patient is a 78 year old female presenting to the ED with a chief complaint of right-sided chest pain. Patient states that the pain lasted 1 to 2 hours and currently is resolved. Patient does state that she has a history of cardiac disease and heart valve replacement. Patient denies being an active smoker. Patient denies having a fever, chills, nausea, vomiting, diarrhea, shortness of breath. Review of Systems: Review of Systems: Constitutional: Denies fever or chills. [] Eyes: Denies change in visual acuity. [] HENT: Denies nasal congestion or sore throat. [] Respiratory: Denies cough or shortness of breath. [] Cardiovascular: Complains of right-sided chest pain [] GI: Denies abdominal pain, nausea, vomiting, bloody stools or diarrhea. [] Neurologic: Denies headache, focal weakness or sensory changes. [] Heart Score: Risk Factors: Risk Factors: DM, Current or recent (<one month) smoker, HTN, HLP, family history of CAD, obesity. Risk Scores: Score 0 - 3: 2.5% MACE over next 6 weeks - Discharge Home Score 4 - 6: 20.3% MACE over next 6 weeks - Admit for Clinical Observation Score 7 - 10: 72.7% MACE over next 6 weeks - Early Invasive Strategies Current Medications: Current Medications Medications (Trade) Dose Ordered Sig/Deepa Start Time Stop Time Status Last Admin Dose Admin Clonidine HCl (Catapres) 0.2 mg 1X ONCE 07/14/19 20:30 07/14/19 20:31 UNV Ondansetron HCl (Zofran) 4 mg STK-MED ONCE 07/14/19 20:14 07/14/19 20:15 DC Allergies: Allergies: Allergies Coded Allergies Type Severity Reaction Last Updated Verified atorvastatin Allergy Intermediate 12/25/16 Yes Physical Exam: PE: Constitutional: Well developed, well nourished, no acute distress, non-toxic appearance. [] HENT: Normocephalic, atraumatic Eyes: EOMI Neck: Normal range of motion, Supple Cardiovascular: Heart rate regular rhythm Lungs & Thorax: Rhonchi on the right [] Abdomen: Bowel sounds normal, soft, no tenderness Extremities: No tenderness, ROM intact Neurologic: Alert and oriented X 3 Current Patient Data: Labs: Laboratory Tests Test 07/14/19 19:20 White Blood Count 9.7 x10^3/uL (4.0-11.0) Red Blood Count 4.73 x10^6/uL (3.50-5.40) Hemoglobin 14.1 g/dL (12.0-15.5) Hematocrit 40.9 % (36.0-47.0) Mean Corpuscular Volume 87 fL (79-100) Mean Corpuscular Hemoglobin 30 pg (25-35) Mean Corpuscular Hemoglobin Concent 34 g/dL (31-37) Red Cell Distribution Width 14.4 % (11.5-14.5) Platelet Count 249 x10^3/uL (140-400) Neutrophils (%) (Auto) 65 % (31-73) Lymphocytes (%) (Auto) 24 % (24-48) Monocytes (%) (Auto) 7 % (0-9) Eosinophils (%) (Auto) 4 % (0-3) H Basophils (%) (Auto) 1 % (0-3) Neutrophils # (Auto) 6.3 x10^3/uL (1.8-7.7) Lymphocytes # (Auto) 2.3 x10^3/uL (1.0-4.8) Monocytes # (Auto) 0.7 x10^3/uL (0.0-1.1) Eosinophils # (Auto) 0.3 x10^3/uL (0.0-0.7) Basophils # (Auto) 0.1 x10^3/uL (0.0-0.2) Sodium Level 142 mmol/L (136-145) Potassium Level 3.1 mmol/L (3.5-5.1) L Chloride Level 103 mmol/L (98-107) Carbon Dioxide Level 26 mmol/L (21-32) Anion Gap 13 (6-14) Blood Urea Nitrogen 15 mg/dL (7-20) Creatinine 0.9 mg/dL (0.6-1.0) Estimated GFR (Cockcroft-Gault) 60.7 BUN/Creatinine Ratio 17 (6-20) Glucose Level 142 mg/dL (70-99) H Lactic Acid Level 1.9 mmol/L (0.4-2.0) Calcium Level 8.8 mg/dL (8.5-10.1) Total Bilirubin 0.4 mg/dL (0.2-1.0) Aspartate Amino Transferase (AST) 25 U/L (15-37) Alanine Aminotransferase (ALT) 23 U/L (14-59) Alkaline Phosphatase 108 U/L (46-116) Troponin I Quantitative < 0.017 ng/mL (0.000-0.055) Total Protein 7.7 g/dL (6.4-8.2) Albumin 3.8 g/dL (3.4-5.0) Albumin/Globulin Ratio 1.0 (1.0-1.7) Lipase 124 U/L (73-393) Laboratory Tests 07/14/19 19:20 Laboratory Tests 07/14/19 19:20 Vital Signs: Vital Signs Date Time Temp Pulse Resp B/P (MAP) Pulse Ox O2 Delivery O2 Flow Rate FiO2 07/14/19 19:09 98.8 94 20 192/89 (123) 95 Room Air 98.8 EKG: EKG: [EKG interpretation: 19: 16 on 07/14/2019 HR: 102 Sinus tachycardia Regular intervals Normal axis Nonspecific ST changes ] Radiology/Procedures: Radiology/Procedures: [] Impression: CXR Impression: 1. Mild cardiomegaly. 2. Interstitial edema likely secondary to CHF. CTA Chest IMPRESSION: No pulmonary embolus identified within the main, lobar or segmental pulmonary arteries. Course & Med Decision Making: Course & Med Decision Making Pertinent Labs and Imaging studies reviewed. (See chart for details) Order chest x-ray, EKG, troponin, labs, IV Patient did complain of nausea and so I have ordered 4 mg IV Zofran. Patient also has high blood pressure in the ER with blood pressure reading at 195/100 Ordered Catapres 0.2 mg oral tablet. EKG does not show any acute changes. Troponin is negative. Labs are within normal limits. Chest x-ray shows mild CHF. Ordered CTA chest due to patient presentation of right-sided chest pain. CT chest is negative for PE. Patient blood pressure is within normal limits. Patient oxygen mildly deep decreased while she slept. Patient states that she is using CPAP at night. There is no acute emergent diagnosis for patient presentation today. Patient can be discharged home for outpatient follow-up. Discussed results and plan of care with patient. Patient is instructed to follow up with PCP in one to 2 days. Appropriate discharge instructions given to patient to return to the ED or to seek immediate medical evaluation. Patient is instructed to return to the ED if symptoms worsen or if any concerns. Dragon Disclaimer: Dragon Disclaimer: This electronic medical record was generated, in whole or in part, using a voice recognition dictation system. Departure Departure Impression: Primary Impression: Chest pain Disposition: HOME, SELF-CARE Condition: STABLE Referrals: OSCAR CH MD (PCP) Patient Instructions: Chest Pain (Nonspecific) Additional Instructions: Please return to the ED if symptoms worsen or if any concerns. Please follow-up with PCP in 1 to 2 days. Justicifation of Admission Dx: Justifications for Admission: Justification of Admission Dx: MARK Llamas DO Jul 14, 2019 20:30
--- NOTE | 2019-07-14 20:39 | RAD ---
CHEST AP ONLY Clinical History: Pain Technique: AP view of the chest was obtained at 07/14/2019 7:18 PM. Comparison: September 28, 2018. Findings: The heart is mildly enlarged. The pulmonary vessels are top normal limits in size. There is increased reticular opacities throughout the lungs. Median sternotomy wires again seen. There is evidence of prior right axillary node dissection. Impression: 1. Mild cardiomegaly. 2. Interstitial edema likely secondary to CHF. Electronically signed by: Dennis Perez III, MD (07/14/2019 8:36 PM) [id number]
[2019-07-14] MEDS ORDERED: CONTRAST GIVEN. MC PRN (21:00)
[2019-07-14] MEDS ORDERED: POTASSIUM CHLORIDE 20 MEQ TABLET.ER. PO ONE (21:00)
[2019-07-14] MEDS ORDERED: IOHEXOL 350 MG/ML 100 ML VIAL. IV ONE (21:30)
--- NOTE | 2019-07-14 21:36 | RAD ---
Exam: CT of chest with contrast INDICATION: Right chest pain TECHNIQUE: Sequential axial images through the chest obtained following the administration of 100 mL of Omni 350 IV contrast. Sagittal and coronal reformatted images were reconstructed from the axial data and reviewed. 3-D reformatted images were reconstructed from the axial data and reviewed. Comparisons: Right chest pain FINDINGS: Visualized portions of the thyroid are unremarkable. No enlarged mediastinal lymph nodes. Heart size is normal. No pericardial effusion. Thoracic aorta has a normal course and caliber. Pulmonary artery is not enlarged. Airways are patent. There are strandy opacities at dependent portion the lungs likely representing atelectasis. Evaluation lungs is limited secondary to respiratory motion. No consolidation or pneumothorax. No pleural effusion. Visualized upper abdomen is unremarkable. No suspicious osseous lesions or acute fractures. Right mastectomy changes are noted. IMPRESSION: No pulmonary embolus identified within the main, lobar or segmental pulmonary arteries. Exposure: One or more of the following in the visualized dose reduction techniques were utilized for this examination: 1. Automated exposure control 2. Adjustment of the MA and/or KV according to patient size 3. Use of iterative of reconstructive technique Electronically signed by: Rashard Acuna MD (07/14/2019 9:33 PM) [id number]
[2019-07-14] MEDS ORDERED: hydrALAZINE 20 MG/ML VIAL. IVP ONE (22:00)
[2019-07-14 22:38] VITALS: BP 114/69
--- NOTE | 2019-07-15 09:56 | EKG ---
[facility] [address] [place] [address] Test Date: 2019-07-14 Test Time: 19:16:11 Pat Name: SABA DAUGHERTY Department: Room: Gender: F General Lot Attendant: : 1940 Requested By: MARK CALERO Order Number: [id number] Reading MD: Nakul Palencia MD Measurements Intervals [place] Rate: 102 P: 46 DC: 176 QRS: 69 QRSD: 98 T: 21 QT: 370 QTc: 487 Interpretive Statements SINUS TACHYCARDIA NON-SPECIFIC ST/T CHANGES Electronically Signed On 07-18-2019 12:04:33 CDT by Nakul Palencia MD
== END 2019-07-14 22:48 | disposition home or self-care (01) ==
LOC: ER 19:08
DX: R07.89 Other chest pain (principal); K21.9 Gastro-esophageal reflux disease without esophagitis; E03.9 Hypothyroidism, unspecified; I10 Essential (primary) hypertension; Z95.1 Presence of aortocoronary bypass graft; Z86.79 Personal history of other diseases of the circulatory system; Z95.2 Presence of prosthetic heart valve; Z88.8 Allergy status to other drugs, medicaments and biological substances
CPT/HCPCS: 36415; 71045; 71275; 80053; 83605; 83690; 83880; 84484; 85025; 93005; 96374; 99285; J2405; Q9967

== ENCOUNTER → 2020-10-09 | Outpatient (CLI) | payer MEDICARE ==
--- NOTE | 2020-10-15 15:33 | RESP ---
DATE OF SERVICE: 10/15/2020 ATTENDING PHYSICIAN: Dr. Gutierrez. The patient underwent full pulmonary function testing performed on 10/09. FEV1 to FVC ratio was 72%, FEV1 was decreased at 53% of predicted at 1.15 liters. FVC was likewise decreased at 55% of predicted at 1.60 liters. There was no significant bronchodilator response. Vital capacity was 63% of predicted at 1.82 liters. Total lung capacity was not calculated. Diffusion capacity was decreased. IMPRESSION: Spirometry and lung volumes, indicative of restrictive lung disease. Total lung capacity not performed. Diffusion capacity is slightly decreased in comparison to spirometry performed back in 2017. The patient has greatly deteriorated in FEV1 and FVC. PATO DR: Anshul TID: [id number]
== END ==
LOC: PF 08:36
PROVIDERS: ATTEND Family Medicine
DX: J84.10 Pulmonary fibrosis, unspecified (principal); J98.4 Other disorders of lung
CPT/HCPCS: 94060; 94640; 94729; 94664

== ENCOUNTER → 2021-05-05 | Outpatient (CLI) | payer MEDICARE ==
--- NOTE | 2021-05-06 13:22 | RAD ---
Exam Date: 05/05/2021 2:59 PM XR LUMBAR SPINE 2-3V Indication: Reason: FALL. PAIN. / Spl. Instructions: / History: . FINDINGS/ IMPRESSION: There is mild levoconvex curvature of the lumbar spine. Degenerative change is seen in the SI joints bilaterally. There is no spinal listhesis. Mild disc space narrowing seen at multiple levels with small to moderate osteophytes and moderate facet joint arthropathy. The vertebral body heights are m aintained without evidence of compression fracture. Vascular calcifications are noted. Electronically signed by: Daniel Feldman MD (05/06/2021 1:19 PM) [id number]
== END ==
LOC: LAB 14:46
PROVIDERS: ATTEND Family Medicine
DX: M46.1 Sacroiliitis, not elsewhere classified (principal); M43.8X6 Other specified deforming dorsopathies, lumbar region; M48.8X6 Other specified spondylopathies, lumbar region; M48.061 Spinal stenosis, lumbar region without neurogenic claudication; M25.78 Osteophyte, vertebrae
CPT/HCPCS: 72100